=== PATIENT | male | born 1950 | race Caucasian/White ===

== ENCOUNTER → 2017-03-07 | Outpatient (CLI) | payer OTHER ==
--- NOTE | 2017-03-07 10:48 | US ---
EXAMINATION TYPE: US venous doppler duplex LE BI DATE OF EXAM: 03/07/2017 9:29 AM COMPARISON: Bilateral lower extremity venous ultrasound August 09, 2010 CLINICAL HISTORY: R22.42 Localized swelling lower limb. [facility] for non-h ealing left wound. Pt is also seen at [facility]. In today for venous insufficiency and arter ial doppler BLE. SIDE PERFORMED: bilateral TECHNIQUE: The lower extremity deep venous system is examined utilizing real time linear array sonog varun with graded compression, doppler sonography and color-flow sonography. VESSELS IMAGED: External Iliac Vein (EIV) Common Femoral Vein Deep Femoral Vein Greater Saphenous Vein * Femoral Vein Popliteal Vein Small Saphenous Vein * Proximal Calf Veins (* superficial vessels) Right Leg: assess for insufficiency as well, normal scan, no DVT or reflux noted on the right Left Leg: during color imaging, acute thrombus is seen at the mid/dst left pop vns. These vessels a re non-compressible. The arterial doppler was deferred due to left acute dvt. Results called to Dr Gibbs office (per [facility]) and pt directed back to the office for care. On current exam the left lower extremity there is diminished color flow with incomplete compressibili ty beginning in the mid left popliteal vein extending through the distal vein with heterogeneous hypo echoic material in lumen. IMPRESSION: Acute DVT left lower extremity in the mid to distal left popliteal vein is present. Results communicated to ordering physician by electrophysiology technologist shortly after exam was complete [email or web address]
== END | disposition home or self-care (01) ==
LOC: RADUSWWP 08:55
PROVIDERS: ATTEND Surgery
DX: I82.432 Acute embolism and thrombosis of left popliteal vein (principal); R22.42 Localized swelling, mass and lump, left lower limb
CPT/HCPCS: 93970

== ENCOUNTER 2017-03-20 20:38 | Inpatient (IN) | payer OTHER, MEDICARE ==
[2017-03-20] MEDS ORDERED: MORPHINE SULFATE 4 MG/ML SYRINGE IV STA (21:53)
[2017-03-20] MEDS ORDERED: CIPROFLOXACIN HCL 250 MG TAB PO STA (21:55)
[2017-03-20 22:39] LABS: Basophils % (A) 0 %; CH 35.1; CHCM 34.5; Eosinophils # (A) 0.1 k/uL (0-0.7); Eosinophils % (A) 1 %; HCT 37.7 % (39.0-53.0); HDW 2.56; HGB 12.9 gm/dL (13.0-17.5); Luc # (Auto) 0.28; Luc % (Auto) 2; Lymphocytes # (A) 3.8 k/uL (1.0-4.8); Lymphocytes % (A) 27 %; MCH 34.8 pg (25.0-35.0); MCHC 34.1 g/dL (31.0-37.0); MCV 102.1 fL (80.0-100.0); Macrocytosis Slight; Mean Platelet Volume 7.1; Monocytes # (A) 0.9 k/uL (0-1.0); Monocytes % (A) 7 %; Neutrophils # (A) 8.7 k/uL (1.3-7.7); Neutrophils % (A) 63 %; RBC 3.69 m/uL (4.30-5.90); WBC 13.8 k/uL (3.8-10.6); WBC (Perox) 13.75
--- NOTE | 2017-03-20 22:40 | ED ---
Skin/Abscess/FB HPI - General Chief complaint: Skin/Abscess/Foreign Body Stated complaint: Infection Time Seen by Provider: 03/20/17 21:24 Source: patient Mode of arrival: ambulatory Limitations: no limitations - History of Present Illness Initial comments: Mike has a chronic left leg infection/also/abscess for the last 9 months he was seen recently at the [facility] he had a biopsy done and he was diagnosed with the pyoderma gangrenosum he was started on a Cipro and some mom antibacterial drops but now is concerned that his pain is quite significant, there is some worsening of the pain is November he was diagnosed with a DVT in the left leg, he is on his overall toe and he has been taken his alto pretty religiously he denies any fever or any chills and no trauma to the leg either him a review of system is unremarkable otherwise - Related Data Home Medications Medication Instructions Recorded Confirmed Lisinopril [Zestril] 10 mg PO DAILY 02/04/17 03/20/17 Magnesium Oxide [Mag-Ox] 250 mg PO DAILY 02/04/17 03/20/17 Metoprolol Succinate (ER) [Toprol 25 mg PO BID 02/04/17 03/20/17 XL] Niacin 100 mg PO DAILY 02/04/17 03/20/17 [place]-3 Fatty Acids [[place]-3] 1,000 mg PO DAILY 02/04/17 03/20/17 Simvastatin [Zocor] 40 mg PO HS 02/04/17 03/20/17 cycloSPORINE [Restasis] 2 drop BOTH EYES BID 02/04/17 03/20/17 Cetirizine HCl [Zyrtec] 10 mg PO DAILY 02/18/17 03/20/17 Chlorhexidine Gluconate [Hibiclens] 1 applic TOPICAL DAILY 02/18/17 03/20/17 Dapsone 100 mg PO DAILY 02/18/17 03/20/17 Clobetasol Propionate [Temovate] 1 applic TOPICAL DAILY 03/11/17 03/20/17 Rivaroxaban [Xarelto] 15 mg PO BID 03/11/17 03/20/17 Tacrolimus 1 applic TOPICAL DAILY 03/11/17 03/20/17 Albuterol Sulfate [Proventil Hfa] 2 puff INHALATION RT-Q4H PRN 03/18/17 03/20/17 HYDROcodone/APAP 7.5-325MG [[place] 1 tab PO Q4H PRN 03/18/17 03/20/17 7.5-325] Pantoprazole Sodium [Protonix] 40 mg PO DAILY 03/18/17 03/20/17 Adalimumab [Humira Pen] 40 mg SQ [id number] 03/20/17 03/20/17 Aspirin EC [Ecotrin Low Dose] 81 mg PO DAILY 03/20/17 03/20/17 Ciprofloxacin HCl [Cipro] 500 mg PO Q12HR 03/20/17 03/20/17 Folic Acid 1 mg PO DAILY 03/20/17 03/20/17 Gentamicin 0.3% Ophth Soln 2 drops TOPICAL DAILY 03/20/17 03/20/17 [Garamycin 0.3% Ophth Soln] Methotrexate Sodium [Methotrexate] 10 mg SQ SA 03/20/17 03/20/17 Allergies Allergy/AdvReac Type Severity Reaction Status Date / Time bupropion [From Wellbutrin] Allergy Rash/Hives/ Verified 03/20/17 21:15 Swelling Review of Systems ROS Statement: Those systems with pertinent positive or pertinent negative responses have been documented in the HPI. ROS Other: All systems not noted in ROS Statement are negative. Past Medical History Past Medical History: Coronary Artery Disease (CAD), Eye Disorder, Hyperlipidemia, Hypertension, Myocardial Infarction ([place]), Skin Disorder Additional Past Medical History / Comment(s): Crohn's; Episcleritis L Eye; Pyoderma L Leg Last Myocardial Infarction Date:: 2011 History of Any Multi-Drug Resistant Organisms: None Reported Past Surgical History: Heart Catheterization With Stent, Orthopedic Surgery Additional Past Surgical History / Comment(s): R Knee, colonoscopy and EGD Past Anesthesia/Blood Transfusion Reactions: No Reported Reaction Date of Last Stent Placement:: 2011 Smoking Status: Former smoker Past Alcohol Use History: Occasional Past Drug Use History: None Reported - Past Family History Mother Family Medical History: Hypertension General Exam - General Exam Comments Initial Comments: General: The patient is awake and alert, mild distress because of the pain in the left leg Skin: Skin is warm and dry and no rashes or lesions are noted. He has a chronic, wound/ulcer, noticed some pus in there is a regular surface part of the wound is edges are elevated noticed some discoloration tissue doesn't look quite quite healthy and has a slight odor as well Eye: Pupils are equal, round and reactive to light, extra-ocular movements are intact; there is normal conjunctiva bilaterally. Ears, nose, mouth and throat: There are moist mucous membranes and no oral lesions. Neck: The neck is supple, there is no tenderness or JVD. Cardiovascular: There is a regular rate and rhythm. No murmur, rub or gallop is appreciated. Respiratory: To auscultation bilateral, no wheezing no rhonchi no distress respiratory kee noticed Gastrointestinal: Soft, non-distended, non-tender abdomen without masses or organomegaly noted. There is no rebound or guarding present. Bowel sounds are unremarkable. Back: There is no tenderness to palpation in the midline. There is no obvious deformity. Musculoskeletal: Normal ROM, no tenderness, There is no pedal edema. There is no calf tenderness or swelling. No cords were appreciated. Neurological: CN II-XII intact, Cranial nerves III through XII are intact. There are no obvious motor or sensory deficits. Coordination appears grossly intact. Speech is normal. Psychiatric: Cooperative, stressed out. Limitations: no limitations Course Vital Signs 03/20/17 20:48 Temperature 98.1 F Pulse Rate 82 Respiratory 18 Rate Blood Pressure 138/84 O2 Sat by Pulse 95 Oximetry - Reevaluation(s) Reevaluation #1: 03/20/17 22:54 He be admitted under Dr. Ortiz service, Dr. Ibrahim is his own doctor and he'll be consulted I Dr. Reaves is as ID doctor Medical Decision Making - Lab Data Result diagrams: 03/20/17 22:14 Lab Results 03/20/17 Range/Units 22:14 WBC 13.8 H (3.8-10.6) k/uL RBC 3.69 L (4.30-5.90) m/uL Hgb 12.9 L (13.0-17.5) gm/dL Hct 37.7 L (39.0-53.0) % MCV 102.1 H (80.0-100.0) fL MCH 34.8 (25.0-35.0) pg MCHC 34.1 (31.0-37.0) g/dL RDW 14.0 (11.5-15.5) % Plt Count 221 (150-450) k/uL Neutrophils % 63 % Lymphocytes % 27 % Monocytes % 7 % Eosinophils % 1 % Basophils % 0 % Neutrophils # 8.7 H (1.3-7.7) k/uL Lymphocytes # 3.8 (1.0-4.8) k/uL Monocytes # 0.9 (0-1.0) k/uL Eosinophils # 0.1 (0-0.7) k/uL Basophils # 0.0 (0-0.2) k/uL Macrocytosis Slight Disposition Clinical Impression: Leg wound, left Disposition: ADMITTED IP TO THIS HOSP Condition: Good
[2017-03-20 22:50] LABS: ALT 43 U/L (21-72); AST 34 U/L (17-59); Alkaline Phosphatase 51 U/L (38-126); Anion Gap 7 mmol/L; Blood Urea Nitrogen 38 mg/dL (9-20); Calcium 9.2 mg/dL (8.4-10.2); Carbon Dioxide 27 mmol/L (22-30); Chloride 105 mmol/L (98-107); Glucose 110 mg/dL (74-99); Non-African American GFR(MDRD) 55 (>60 ml/min/1.73 sqM); Potassium 4.3 mmol/L (3.5-5.1); Sodium 139 mmol/L (137-145); Total Bilirubin 0.6 mg/dL (0.2-1.3)
[2017-03-20] MEDS ORDERED: SODIUM CHLORIDE 0.9% 1,000 ML IV ONE (22:55)
[2017-03-20] MEDS ORDERED: ALBUTEROL NEBULIZED 2.5 MG/3 ML INHALATION PRN (22:59)
[2017-03-20] MEDS ORDERED: VANCOMYCIN 1,500 MG in SODIUM CHLORIDE 0.9% 250 ML IVPB STA (22:59)
[2017-03-21] MEDS: MORPHINE SULFATE 4 MG/ML SYRINGE IVP PRN ×6 (00:32→21:33)
[2017-03-21] MEDS: HYDROcodone/APAP 7.5-325MG 1 EACH TAB PO PRN ×3 (06:34→19:42)
--- NOTE | 2017-03-21 07:22 | XR ---
EXAMINATION TYPE: XR tibia fibula LT DATE OF EXAM: 03/20/2017 10:27 PM CLINICAL HISTORY: Nonhealing wound TECHNIQUE: AP and lateral images of the left tibia and fibula are obtained. COMPARISON: None. FINDINGS: There is no acute fracture/dislocation evident. The joint spaces appear within normal herrera its. Soft tissue wound is noted. No evidence for osteomyelitis. IMPRESSION: There is no acute fracture or dislocation seen. ICD 10 NO FRACTURE, INITIAL EVALUATION
[2017-03-21] MEDS: RIVAROXABAN 15 MG TAB PO SCH ×2 (08:26→21:27)
[2017-03-21] MEDS: FOLIC ACID 1 MG TAB PO SCH (08:26)
[2017-03-21] MEDS: ASPIRIN 81 MG CHEW PO SCH (08:26)
[2017-03-21] MEDS: PANTOPRAZOLE 40 MG TABLET PO SCH (08:26)
[2017-03-21] MEDS: DAPSONE 25 MG TAB PO SCH (08:26)
[2017-03-21] MEDS: CIPROFLOXACIN HCL 500 MG TAB PO SCH ×2 (08:26→21:26)
[2017-03-21] MEDS: METOPROLOL TARTRATE 25 MG TAB PO SCH ×2 (08:26→21:26)
[2017-03-21] MEDS: LORATADINE 10 MG TAB PO SCH (08:27)
[2017-03-21] MEDS: LISINOPRIL 10 MG TAB PO SCH (08:27)
[2017-03-21] MEDS: MAGNESIUM OXIDE 400 MG TAB PO SCH (08:27)
[2017-03-21] MEDS: CLOBETASOL PROP 0.05% CR 15GM TOPICAL SCH (08:28)
[2017-03-21] MEDS: cycloSPORINE 0.05% OPHTH 0.4 ML DROPERETTE BOTH EYES SCH ×2 (08:55→23:02)
[2017-03-21] MEDS ORDERED: NON-FORMULARY DRUG (Omega-3 Fatty Acids [Omega-3] 1,000 MG) PO SCH (09:00)
[2017-03-21] MEDS ORDERED: NIACIN 100 MG PO SCH (09:00)
[2017-03-21] MEDS ORDERED: CHLORHEXIDINE GLUCONATE TOPICAL SCH (09:00)
[2017-03-21] MEDS ORDERED: TACROLIMUS TOPICAL SCH (09:00)
--- NOTE | 2017-03-21 12:07 | P.HPIM ---
History of Present Illness H&P Date: 03/21/17 Chief Complaint: Uncontrolled pain of the left lower extremity This is a 67-year-old gentleman with past medical history significant for underlying Crohn's disease with chronic pyoderma gangrenosum involving the left lower extremity at the mid chin level. Patient is been following at [facility] and was recently started on antibiotic with ciprofloxacin and other immunosuppressant. Patient said that the pain in the left lower extremity is being getting worse within the past few days. He has been taking [place] every 6 hours. Secondary to his pain he was advised to take 2 tablets at the time that his pain remains uncontrolled. Patient said that there was no drainage noted from the ulcer on exam today he was noted to be bigger from what it was last week. There is a lot of necrotic tissue as well. Patient recently was diagnosed with an acute DVT involving the left lower extremity and is currently on Rivaroxaban for anticoagulation. There was no documented fevers or chills. He was evaluated in the emergency room and x-ray showed no evidence of underlying osteomyelitis per report. Patient is currently admitted to the hospital awaiting general surgery evaluation as well as infectious disease. Controlled with IV morphine. Review of Systems Review of system: 14 points review of systems were obtained and were negative except to what were mentioned in the HPI. Past Medical History Past Medical History: Coronary Artery Disease (CAD), Eye Disorder, Hyperlipidemia, Hypertension, Myocardial Infarction ([place]), Skin Disorder Additional Past Medical History / Comment(s): Crohn's; Episcleritis L Eye; Pyoderma gangrenosum L Leg Last Myocardial Infarction Date:: 2011 History of Any Multi-Drug Resistant Organisms: None Reported Past Surgical History: Heart Catheterization With Stent, Orthopedic Surgery Additional Past Surgical History / Comment(s): R Knee, colonoscopy and EGD Past Anesthesia/Blood Transfusion Reactions: No Reported Reaction Date of Last Stent Placement:: 2011 Past Psychological History: No Psychological Hx Reported Smoking Status: Former smoker Past Alcohol Use History: Occasional Past Drug Use History: None Reported - Past Family History Mother Family Medical History: Hypertension Brother(s) History Unknown: Yes Medications and Allergies Home Medications Medication Instructions Recorded Confirmed Type Lisinopril [Zestril] 10 mg PO DAILY 02/04/17 03/20/17 History Magnesium Oxide [Mag-Ox] 250 mg PO DAILY 02/04/17 03/20/17 History Metoprolol Succinate (ER) [Toprol 25 mg PO BID 02/04/17 03/20/17 History XL] Niacin 100 mg PO DAILY 02/04/17 03/20/17 History [place]-3 Fatty Acids [Supply-3] 1,000 mg PO DAILY 02/04/17 03/20/17 History Simvastatin [Zocor] 40 mg PO HS 02/04/17 03/20/17 History cycloSPORINE [Restasis] 2 drop BOTH EYES BID 02/04/17 03/20/17 History Cetirizine HCl [Zyrtec] 10 mg PO DAILY 02/18/17 03/20/17 History Chlorhexidine Gluconate [Hibiclens] 1 applic TOPICAL DAILY 02/18/17 03/20/17 History Dapsone 100 mg PO DAILY 02/18/17 03/20/17 History Clobetasol Propionate [Temovate] 1 applic TOPICAL DAILY 03/11/17 03/20/17 History Rivaroxaban [Xarelto] 15 mg PO BID 03/11/17 03/20/17 History Tacrolimus 1 applic TOPICAL DAILY 03/11/17 03/20/17 History Albuterol Sulfate [Proventil Hfa] 2 puff INHALATION RT-Q4H PRN 03/18/17 History HYDROcodone/APAP 7.5-325MG [[place] 1 tab PO Q4H PRN 03/18/17 03/20/17 History 7.5-325] Pantoprazole Sodium [Protonix] 40 mg PO DAILY 03/18/17 03/20/17 History Adalimumab [Humira Pen] 40 mg SQ [id number] 03/20/17 03/20/17 History Aspirin EC [Ecotrin Low Dose] 81 mg PO DAILY 03/20/17 03/20/17 History Ciprofloxacin HCl [Cipro] 500 mg PO Q12HR 03/20/17 03/20/17 History Folic Acid 1 mg PO DAILY 03/20/17 03/20/17 History Gentamicin 0.3% Ophth Soln 2 drops TOPICAL DAILY 03/20/17 03/20/17 History [Garamycin 0.3% Ophth Soln] Methotrexate Sodium [Methotrexate] 10 mg SQ SA 03/20/17 03/20/17 History Allergies Allergy/AdvReac Type Severity Reaction Status Date / Time bupropion [From Wellbutrin] Allergy Rash/Hives/ Verified 03/20/17 21:15 Swelling Physical Exam Vitals: Vital Signs Temp Pulse Pulse Resp BP BP Pulse Ox 03/21/17 07:00 98.0 F 59 L 16 112/72 94 L 03/20/17 23:45 97.3 F L 62 20 118/78 95 03/20/17 23:18 98.4 F 60 18 112/59 95 Intake and Output 03/20/17 03/21/17 03/21/17 22:59 06:59 14:59 Intake Total 100 Balance 100 Intake: Oral 100 Other: Voiding Method Toilet # Voids 1 Weight 100.244 kg General: The patient is awake and alert, in no distress, and does not appear acutely ill. Eye: extra-ocular movements are intact; there is normal conjunctiva bilaterally. . Neck: The neck is supple, there is no tenderness or JVD. Cardiovascular: Normal S1-S2, no S3-S4, no murmurs. Respiratory: Lungs clear to auscultation bilaterally with no wheezes rhonchi or rales. Gastrointestinal: Abdomen is soft, nontender, nondistended, with no organomegaly. . Musculoskeletal: Normal ROM, no tenderness, There is no pedal edema. Neurological: There are no obvious motor or sensory deficits. Speech is normal. Skin: Skin is warm and dry. Please refer to the nursing staff documentation and pictures in the paper chart for description of the ulcer involving the left lower extremity at the mid conde level Results CBC & Chem 7: 03/20/17 22:14 03/20/17 22:14 Thrombosis Risk Factor Assmnt - Choose All That Apply Any of the Below Risk Factors Present?: Yes Each Factor Represents 1 point: Obesity (BMI >25) Other Risk Factors: Yes Each Risk Factor Represents 2 Points: Age 61-74 years Other congenital or acquired thrombophilia - If yes, enter type in comment: No Thrombosis Risk Factor Assessment Total Risk Factor Score: 3 Thrombosis Risk Factor Assessment Level: Moderate Risk Assessment and Plan Plan: 1. 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 Left lower extremity ulcer infection with necrotic tissue 3. Recent left lower extremity DVT on anticoagulation with Rivaroxaban 4. Underlying Crohn's disease with no evidence of exacerbation 5. Essential hypertension: Blood pressure well controlled 6. Mixed hyperlipidemia 7. Chronic pain secondary to left lower extremity chronic ulcer now not well controlled Today, I reviewed his medication list and labwork result. Continue broad spectrum antibiotic. Culture sent and pending. Appreciate business information consultant's recommendations. May require debridement of the wound by surgery. We will continue supportive care otherwise. Pain control. DVT prophylaxis with subcu heparin. Repeat lab work in the morning.
--- NOTE | 2017-03-21 14:11 | P.GSCN ---
<Irina Masters - Last Filed: 03/21/17 13:48> History of Present Illness Consult date: 03/21/17 Reason for Consult: Ulcer left lower extremity History of present illness: 67-year-old male being seen for a surgical eval at the request of the attending patient is known to Dr. Gómez follows the patient in the wound care center. Patient has a known history for underlying Crohn's disease with chronic pyodermal gangrenosum involving the left lower extremity. Patient has been followed by the [facility] in [place]. Stated that he had recently been started on antibiotic Cipro and other immunosuppressants. Patient states what concerned him and what brought him into the emergency room was the pain he was experiencing in the left lower extremity was getting worse over the last several days. Patient stated he was taking [place] every 6 hours and was not seeming to get the relief. Patient states he does follow at the [facility] wound center with dr gómez Patient stated that he did stop taking his Keflex on March 19 and started on Cipro. He stated that he was seen by the wound care center. Patient states he had not been running any fever had not been experiencing any chills. Currently the patient states he has been dressing the left lower extremity wound with silver opticel dressing. He states the drainage is about the same he also states the wound does not look significantly changed the redness around it has improved. He states that there is concern because of the increased change in the pain with the antibiotic that had been changed patient has a wound on the left lower conde measures 6 cm in length 500 with with red-pink granulation noted epithelialization of 20-50%. There is a dry necrotic slough at the base area noted. There is a healed scar tissue around it A slight odor noted with serosanguineous drainage noted currently has a dressing on opticel to the area Review of Systems Essentially unremarkable except as mentioned in the present illness Past Medical History Past Medical History: Coronary Artery Disease (CAD), Eye Disorder, Hyperlipidemia, Hypertension, Myocardial Infarction ([place]), Skin Disorder Additional Past Medical History / Comment(s): Crohn's; Episcleritis L Eye; Pyoderma gangrenosum L Leg Last Myocardial Infarction Date:: 2011 History of Any Multi-Drug Resistant Organisms: None Reported Past Surgical History: Heart Catheterization With Stent, Orthopedic Surgery Additional Past Surgical History / Comment(s): R Knee, colonoscopy and EGD Past Anesthesia/Blood Transfusion Reactions: No Reported Reaction Date of Last Stent Placement:: 2011 Past Psychological History: No Psychological Hx Reported Smoking Status: Former smoker Past Alcohol Use History: Occasional Past Drug Use History: None Reported - Past Family History Mother Family Medical History: Hypertension Brother(s) History Unknown: Yes Medications and Allergies Home Medications Medication Instructions Recorded Confirmed Type Lisinopril [Zestril] 10 mg PO DAILY 02/04/17 03/20/17 History Magnesium Oxide [Mag-Ox] 250 mg PO DAILY 02/04/17 03/20/17 History Metoprolol Succinate (ER) [Toprol 25 mg PO BID 02/04/17 03/20/17 History XL] Niacin 100 mg PO DAILY 02/04/17 03/20/17 History [place]-3 Fatty Acids [[place]-3] 1,000 mg PO DAILY 02/04/17 03/20/17 History Simvastatin [Zocor] 40 mg PO HS 02/04/17 03/20/17 History cycloSPORINE [Restasis] 2 drop BOTH EYES BID 02/04/17 03/20/17 History Cetirizine HCl [Zyrtec] 10 mg PO DAILY 02/18/17 03/20/17 History Chlorhexidine Gluconate [Hibiclens] 1 applic TOPICAL DAILY 02/18/17 03/20/17 History Dapsone 100 mg PO DAILY 02/18/17 03/20/17 History Clobetasol Propionate [Temovate] 1 applic TOPICAL DAILY 03/11/17 03/20/17 History Rivaroxaban [Xarelto] 15 mg PO BID 03/11/17 03/20/17 History Tacrolimus 1 applic TOPICAL DAILY 03/11/17 03/20/17 History Albuterol Sulfate [Proventil Hfa] 2 puff INHALATION RT-Q4H PRN 03/18/17 History HYDROcodone/APAP 7.5-325MG [[place] 1 tab PO Q4H PRN 03/18/17 03/20/17 History 7.5-325] Pantoprazole Sodium [Protonix] 40 mg PO DAILY 03/18/17 03/20/17 History Adalimumab [Humira Pen] 40 mg SQ [id number] 03/20/17 03/20/17 History Aspirin EC [Ecotrin Low Dose] 81 mg PO DAILY 03/20/17 03/20/17 History Ciprofloxacin HCl [Cipro] 500 mg PO Q12HR 03/20/17 03/20/17 History Folic Acid 1 mg PO DAILY 03/20/17 03/20/17 History Gentamicin 0.3% Ophth Soln 2 drops TOPICAL DAILY 03/20/17 03/20/17 History [Garamycin 0.3% Ophth Soln] Methotrexate Sodium [Methotrexate] 10 mg SQ SA 03/20/17 03/20/17 History Allergies Allergy/AdvReac Type Severity Reaction Status Date / Time bupropion [From Wellbutrin] Allergy Rash/Hives/ Verified 03/20/17 21:15 Swelling Surgical - Exam Vital Signs Temp Pulse Resp BP Pulse Ox 98.1 F 82 18 138/84 95 03/20/17 20:48 03/20/17 20:48 03/20/17 20:48 03/20/17 20:48 03/20/17 20:48 GENERAL APPEARANCE: A 67-year-old male patient is alert, oriented, in no acute distress. Continues to report that he has pain in the left lower conde of the ulcerative site VITAL SIGNS: Reviewed HEENT: Head is normocephalic and atraumatic. Pupils are equal and reactive. The nares are patent. Oropharynx is clear without lesions. NECK: Supple without lymphadenopathy. Traches midline. HEART: S1, S2. Regular rate and rhythm. No murmur noted denying chest pain LUNGS: No crackles or wheezes are heard. Adequate air movement bilaterally no shortness of breath no cough on room air ABDOMEN: Soft, nontender, nondistended with good bowel sounds. No peritoneal signs. No palpable organomegaly or masses. EXTREMITIES: The left lower extremity dressing removed noted wound measuring 6 cm in length 5 cm in width with serous drainage slight odor with the gel fiber with silver dressing in place surrounding tissue erythema noted the extremity warm to touch. Radial pedal pulses are 2/4 bilaterally. No pedal edema noted NEUROLOGICAL: No focal deficits. Strength and sensation are grossly intact. Results - Labs 03/20/17 22:14 03/20/17 22:14 Assessment and Plan Plan: Impression History of Crohn's disease no evidence of an exacerbation Present on admission known chronic left lower extremity open ulcer measuring 6 cm in length 5 cm in width with necrotic tissue noted Left lower extremity DVT on anticoagulation Hypertension Chronic pain secondary to left lower extremity ulcer not well controlled History of pyoderma gangrenosum Chronic pyoderma gangrenosum of the left lower extremity Plan At this time there is no surgical indication to do a debridement of this ulcer that is open involving the left lower extremity would continue with the current wound care per [facility]'s recommendations continue with the multivitamins and high protein diet as ordered Pain control Wound care as ordered Patient should continue to follow-up with [facility] with dr barillas for the Pyoderm gangrenosum dr vaughn did notify Dr. gómez who is familiar with this patient Thank you for this kind referral and opportunity to participate in the care depending on progress further recommendations will be made The above dictated assessment and findings were discussed with dr vaughn. Impression and the plan of care have been dictated as directed. Irina Masters nurse practitioner acting as a scribe for dr alfaro <Merry Solis - Last Filed: 03/24/17 12:51> Surgical - Exam Vital Signs Temp Pulse Resp BP Pulse Ox 98.1 F 82 18 138/84 95 03/20/17 20:48 03/20/17 20:48 03/20/17 20:48 03/20/17 20:48 03/20/17 20:48 Results - Labs 03/20/17 22:14 03/20/17 22:14
[2017-03-21 14:17] VITALS: BMI 30.8
[2017-03-21] MEDS: ATORVASTATIN 20 MG TAB PO SCH (21:26)
[2017-03-22] MEDS: MORPHINE SULFATE 4 MG/ML SYRINGE IVP PRN (06:59)
[2017-03-22] MEDS: RIVAROXABAN 15 MG TAB PO SCH (08:13)
[2017-03-22] MEDS: ASPIRIN 81 MG CHEW PO SCH (08:13)
[2017-03-22] MEDS: LORATADINE 10 MG TAB PO SCH (08:13)
[2017-03-22] MEDS: CIPROFLOXACIN HCL 500 MG TAB PO SCH (08:13)
[2017-03-22] MEDS: MAGNESIUM OXIDE 400 MG TAB PO SCH (08:14)
[2017-03-22] MEDS: PANTOPRAZOLE 40 MG TABLET PO SCH (08:14)
[2017-03-22] MEDS: DAPSONE 25 MG TAB PO SCH (08:14)
[2017-03-22] MEDS: FOLIC ACID 1 MG TAB PO SCH (08:14)
[2017-03-22] MEDS: METOPROLOL TARTRATE 25 MG TAB PO SCH (08:14)
[2017-03-22] MEDS: LISINOPRIL 10 MG TAB PO SCH (08:14)
[2017-03-22] MEDS: cycloSPORINE 0.05% OPHTH 0.4 ML DROPERETTE BOTH EYES SCH (08:15)
[2017-03-22] MEDS: CLOBETASOL PROP 0.05% CR 15GM TOPICAL SCH (08:15)
--- NOTE | 2017-03-22 08:20 | CONS ---
DATE OF CONSULTATION: 03/21/2017 REASON FOR CONSULTATION: Left leg wound and a question of secondary cellulitis. HISTORY OF PRESENT ILLNESS: The patient is a 67-year-old male with past medical history significant for pyoderma gangrenosum to the lower extremity that was back in 2002 and 2003. Patient did have a history of underlying Crohn's disease. About a month and a half ago the patient started having small wound to the leg lower leg area. The patient has been evaluated at the [facility]. They recommend some local steroid cream and was advised wound care for follow-up. The patient was seen at the [facility] for consultation for possible HBO therapy. Subsequently, the patient went to the [facility] for a second opinion and possible biopsy. The patient did have biopsy of the same also done which did not reveal any evidence of pyoderma gangrenosum, but evidence of possible stasis dermatitis. The patient is currently being treated with local steroid cream, clobestasol cream, and Aquacel Silver dressing. The patient said that he was at the [facility] last week where apparently was noticed to have worsening of his wound and possibility of an infection. He did have cultures obtained, which were growing pseudomonas. He was started on oral Cipro. Last night the patient said that his pain got worse and more redness and swelling to the leg area for which he came to the ER for possible secondary cellulitis and antibiotic therapy. The patient did receive a dose of vancomycin by the ER physician and has been subsequently admitted to the hospital. Surgery was consulted in addition to myself for the antibiotic therapy. Patient has also seen Dr. Ibrahim at the [facility] and apparently was told that there was no need for any surgical debridement. The patient denies any high-grade fever, no chills. REVIEW OF SYSTEMS: CONSTITUTIONAL: Positive for weakness. No fever. EYES: No complaint. ENT: No complaint. RESPIRATORY: No complaint. CARDIOVASCULAR: No complaint. GENITOURINARY: No complaint. GASTROINTESTINAL: No complaint. MUSCULOSKELETAL: No complaint. INTEGUMENTARY: As per HPI. PSYCHOLOGIC: No complaint. ENDOCRINE: No complaint. NEUROLOGIC: No complaint. PAST MEDICAL HISTORY: Significant for coronary artery disease, hypertension, hyperlipidemia, myocardial infarction, pyoderma gangrenosum. PAST SURGICAL HISTORY: Debridement of the leg wound, biopsy, PTCA and stent placement, angioplasty, EGD, colonoscopy. SOCIAL HISTORY: Remote history of smoking. No drug use. FAMILY HISTORY: Mother with history of hypertension. ALLERGIES TO BUPROPION. Medications currently include the patient is on Humira, aspirin, Lipitor, cyclosporine, dapsone, folic acid, Zestril, Claritin, mag oxide, methotrexate, Lopressor, Protonix, Xarelto, Ultram. On examination, blood pressure is 126/74 with a pulse of 51, temperature 97.8. He is 94% on room air. General description is an elderly male, lying in bed in no distress. No tachypnea or accessory muscle of respiration use. HEENT examination shows slight pallor. There is no scleral icterus. Oral mucous membranes dry. NECK: Trachea central. There is no thyromegaly. LUNGS: Unlabored breathing. Clear to auscultation. No wheeze or crackle. HEART: S1, S2. Regular rate and rhythm. ABDOMEN: Soft. No tenderness. EXTREMITIES: No edema of feet. Examination of the left leg wound on the lower leg area with significant amount of slough tissue and some black eschar. Very minimal surrounding erythema. Did have foul smell at the time of dressing changes. NEUROLOGICAL: The patient is awake, alert, oriented x3. Mood and affect normal. LABS: Hemoglobin is 13.9, white count of 4.9 with a BUN of 38, creatinine 1.30. He did have cultures obtained which are currently pending. DIAGNOSTIC IMPRESSION AND PLAN: Patient with chronic nonhealing wound to the left leg area. The patient did have a previous history of pyoderma gangrenosum that was in 2002. Now this wound started a few months ago with recent significant worsening that has been biopsied at [facility], which is showing stasis dermatitis but no features of pyoderma gangrenosum. The patient seems to have been treated with local steroid cream and Aquacel silver, but the wound has significant amount of slough tissue at the base with a question of possible secondary cellulitis. Culture done at the [facility] did show Pseudomonas aeruginosa for which the patient treated with p.o. Cipro with worsening and failing possible oral antibiotic therapy. PLAN: 1. We will try to get the culture report from the [facility] as the sensitivity was not documented on the report that was shown to me by the patient. 2. Will start the patient on Fortaz 2 grams q.8 to cover for the Pseudomonas. 3. The patient will need more aggressive local wound care with significant amount of slough tissue and necrotic skin that does need to be surgically debrided in order for it to heal up; however, the patient is very reluctant to this idea and will not agree with the Santyl. He wants to continue with local wound care as advised by the [facility], which is currently clobestasol cream and Aquacel silver. That will be continued. 4. Will follow up on his clinical condition and cultures to further adjust his medication if needed. If the patient does not have any significant improvement over the weekend, will recommend transferring him to the [facility] for continuity of care. ONOFRE
[2017-03-22] MEDS ORDERED: METHOTREXATE SODIUM 2.5 MG TAB PO SCH (09:00)
--- NOTE | 2017-03-22 10:52 | P.PN ---
Subjective No events overnight Objective - Vital Signs Vital signs: Vital Signs Temp 97.5 F L 03/22/17 07:51 Pulse 91 03/22/17 07:51 Resp 20 03/22/17 07:51 BP 141/85 03/22/17 07:51 Pulse Ox 95 03/22/17 07:51 Intake & Output 03/21/17 03/22/17 03/22/17 18:59 06:59 18:59 Weight 100.244 kg Other: Voiding Method Toilet # Voids 2 0 1 - Exam General: The patient is awake and alert, in no distress Eye: there is normal conjunctiva bilaterally. Neck: The neck is supple, there is no JVD. Cardiovascular: Normal S1-S2, no S3-S4, no murmurs. Respiratory: Lungs clear to auscultation bilaterally Gastrointestinal: Abdomen is soft, nontender Musculoskeletal: There is no pedal edema. Neurological:. Speech is normal. Skin: Skin is warm and dry is referred to nursing staff documentation for left lower extremity ulcer description - Labs CBC & Chem 7: 03/20/17 22:14 03/20/17 22:14 Assessment and Plan Plan: 1. 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 Left lower extremity ulcer infection with necrotic tissue 3. Recent left lower extremity DVT on anticoagulation with Rivaroxaban 4. Underlying Crohn's disease with no evidence of exacerbation 5. Essential hypertension: Blood pressure well controlled 6. Mixed hyperlipidemia 7. Chronic pain secondary to left lower extremity chronic ulcer now not well controlled Today, I reviewed his medication list and labwork result. Continue broad spectrum antibiotic. Culture sent and pending. Appreciate presales consultant's recommendations. No plan for surgical debridement. We will continue supportive care otherwise. Pain control. DVT prophylaxis with subcu heparin. Repeat lab work in the morning. Switch IV morphine to extended release morphine 15 mg twice daily
[2017-03-22] MEDS: MORPHINE SULFATE ER 15 MG TABLET PO SCH (12:10)
[2017-03-22] MEDS: HYDROcodone/APAP 7.5-325MG 1 EACH TAB PO PRN (15:14)
[2017-03-22] MEDS ORDERED: CIPROFLOXACIN HCL 500 MG TAB ONE (21:00)
[2017-03-22] MEDS ORDERED: RIVAROXABAN 15 MG TAB ONE (21:00)
[2017-03-22] MEDS ORDERED: METOPROLOL TARTRATE 25 MG TAB ONE (21:00)
[2017-03-22] MEDS ORDERED: MORPHINE SULFATE ER 15 MG TABLET PO ONE (21:00)
[2017-03-22] MEDS ORDERED: ATORVASTATIN 20 MG TAB ONE (21:00)
[2017-03-22] MEDS ORDERED: cycloSPORINE 0.05% OPHTH 0.4 ML DROPERETTE ONE (21:00)
[2017-03-22] MEDS ORDERED: HYDROcodone/APAP 7.5-325MG 1 EACH TAB ONE (23:15)
[2017-03-23] MEDS: ATORVASTATIN 20 MG TAB PO SCH ×2 (07:36→20:41)
[2017-03-23] MEDS: cycloSPORINE 0.05% OPHTH 0.4 ML DROPERETTE BOTH EYES SCH ×3 (07:36→20:42)
[2017-03-23] MEDS: METOPROLOL TARTRATE 25 MG TAB PO SCH ×3 (07:36→20:42)
[2017-03-23] MEDS: CIPROFLOXACIN HCL 500 MG TAB PO SCH ×3 (07:36→20:41)
[2017-03-23] MEDS: RIVAROXABAN 15 MG TAB PO SCH ×3 (07:37→20:42)
[2017-03-23] MEDS: MORPHINE SULFATE ER 15 MG TABLET PO SCH ×3 (07:37→20:47)
--- NOTE | 2017-03-23 08:16 | PN ---
DATE OF SERVICE: 03/22/2017 Reason for follow-up is left lower extremity wound and cellulitis. INTERVAL HISTORY: The patient is afebrile. Pain to the left lower extremity wound is slightly improved. He did mention the surrounding redness has improved as well. No drainage. Denies any chest pain. No shortness of breath or cough. On examination, blood pressure is 141/85 with a pulse of 91, temperature 97.5. He is 95% on room air. General description is an elderly male, lying in bed in no distress. RESPIRATORY SYSTEM: Unlabored breathing. Clear to auscultation anteriorly. HEART: S1, S2. Regular rate and rhythm. ABDOMEN: Soft, no tenderness. Left leg wound with no significant surrounding erythema. The wound still has significant amount of slough tissue with slightly black eschar, though not element of foul smelling as yesterday. LABS: Wound culture showing gram-negative. Blood culture has been negative. DIAGNOSTIC IMPRESSION AND PLAN: Patient with left lower leg nonhealing wound in a patient with previous history of pyoderma gangrenosum. This time biopsy was positive for stasis dermatitis with a question of secondary cellulitis. Cultures at the [facility] was pseudomonas. Here is showing gram-negative, more likely same pathogen. He is currently covered with Fortaz and that will be continued. Continue supportive care.
[2017-03-23] MEDS: DAPSONE 25 MG TAB PO SCH (08:33)
[2017-03-23] MEDS: ASPIRIN 81 MG CHEW PO SCH (08:33)
[2017-03-23] MEDS: FOLIC ACID 1 MG TAB PO SCH (08:33)
[2017-03-23] MEDS: LISINOPRIL 10 MG TAB PO SCH (08:34)
[2017-03-23] MEDS: LORATADINE 10 MG TAB PO SCH (08:34)
[2017-03-23] MEDS: PANTOPRAZOLE 40 MG TABLET PO SCH (08:34)
[2017-03-23] MEDS: CLOBETASOL PROP 0.05% CR 15GM TOPICAL SCH (08:34)
[2017-03-23] MEDS: MAGNESIUM OXIDE 400 MG TAB PO SCH (08:34)
[2017-03-23] MEDS: HYDROcodone/APAP 7.5-325MG 1 EACH TAB PO PRN ×3 (10:38→20:34)
--- NOTE | 2017-03-23 14:16 | P.PN ---
Subjective Pain is well controlled today Objective - Vital Signs Vital signs: Vital Signs Temp 98.3 F 03/23/17 07:00 Pulse 58 L 03/23/17 07:00 Resp 18 03/23/17 07:00 BP 142/76 03/23/17 07:00 Pulse Ox 94 L 03/23/17 07:00 Intake & Output 03/22/17 03/23/17 03/23/17 18:59 06:59 18:59 Intake Total 100 800 400 Balance 100 800 400 Intake: Intake, IV Titration 100 800 Amount cefTAZidime 2 gm In 100 800 Sodium Chloride 0.9% 100 ml @ 100 mls/hr IVPB Q8HR [facility] Rx#:[id number] Oral 400 Other: # Voids 1 2 - Exam General: The patient is awake and alert, in no distress Eye: there is normal conjunctiva bilaterally. Neck: The neck is supple, there is no JVD. Cardiovascular: Normal S1-S2, no S3-S4, no murmurs. Respiratory: Lungs clear to auscultation bilaterally Gastrointestinal: Abdomen is soft, nontender Musculoskeletal: There is no pedal edema. Neurological:. Speech is normal. Skin: Skin is warm and dry is referred to nursing staff documentation for left lower extremity ulcer description - Labs CBC & Chem 7: 03/20/17 22:14 03/20/17 22:14 Assessment and Plan Plan: 1. 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 Left lower extremity ulcer infection with necrotic tissue 3. Recent left lower extremity DVT on anticoagulation with Rivaroxaban 4. Underlying Crohn's disease with no evidence of exacerbation 5. Essential hypertension: Blood pressure well controlled 6. Mixed hyperlipidemia 7. Chronic pain secondary to left lower extremity chronic ulcer now not well controlled Today, I reviewed his medication list and labwork result. Continue broad spectrum antibiotic. Culture sent and pending. Appreciate oncology consultant's recommendations. No plan for surgical debridement. We will continue supportive care otherwise. Pain control. DVT prophylaxis with subcu heparin. Repeat lab work in the morning. Awaiting cultures to finalize. Awaiting antibiotic recommendation by infectious disease for discharge.
[2017-03-24] MEDS: HYDROcodone/APAP 7.5-325MG 1 EACH TAB PO PRN ×3 (00:31→11:52)
[2017-03-24 07:34] VITALS: BP 123/69; PULSE 68; RESP 16; TEMP 97.2
[2017-03-24] MEDS: MORPHINE SULFATE ER 15 MG TABLET PO SCH (09:25)
[2017-03-24] MEDS: CIPROFLOXACIN HCL 500 MG TAB PO SCH (09:28)
[2017-03-24] MEDS: PANTOPRAZOLE 40 MG TABLET PO SCH (09:28)
[2017-03-24] MEDS: ASPIRIN 81 MG CHEW PO SCH (09:28)
[2017-03-24] MEDS: METOPROLOL TARTRATE 25 MG TAB PO SCH (09:28)
[2017-03-24] MEDS: LISINOPRIL 10 MG TAB PO SCH (09:29)
[2017-03-24] MEDS: DAPSONE 25 MG TAB PO SCH (09:29)
[2017-03-24] MEDS: cycloSPORINE 0.05% OPHTH 0.4 ML DROPERETTE BOTH EYES SCH (09:29)
[2017-03-24] MEDS: LORATADINE 10 MG TAB PO SCH (09:30)
[2017-03-24] MEDS: MAGNESIUM OXIDE 400 MG TAB PO SCH (09:30)
[2017-03-24] MEDS: FOLIC ACID 1 MG TAB PO SCH (09:30)
[2017-03-24] MEDS: RIVAROXABAN 15 MG TAB PO SCH (09:30)
[2017-03-24] MEDS: CLOBETASOL PROP 0.05% CR 15GM TOPICAL SCH (09:35)
--- NOTE | 2017-03-24 10:41 | PN ---
DATE OF SERVICE: 03/23/2017 Reason for followup is left leg wound infection with pseudomonas. INTERVAL HISTORY: The patient is afebrile. The patient denies any worsening pain to the left leg wound area. Patient denies having any chest pain, shortness of breath or cough. No abdominal pain or any diarrhea. On examination, blood pressure is 102/59 with a pulse of 57, temperature 98.1. He is 93% on room air. General description is an elderly male, lying in bed in no distress. RESPIRATORY SYSTEM: Unlabored breathing. Clear to auscultation anteriorly. HEART: S1, S2. Regular rate and rhythm. ABDOMEN: Soft. No tenderness. Left leg wound still has slough tissue with black eschar redness improved. No foul smelling drainage. LABS: No new labs have been obtained today. Wound culture with Pseudomonas aeruginosa that is sensitive pathogen. Blood culture negative. DIAGNOSTIC IMPRESSION AND PLAN: Patient with left leg wound with secondary cellulitis. Culture has been positive for Pseudomonas, which is a sensitive pathogen. Currently on Fortaz. Plan to finish therapy with p.o. Cipro 500 mg twice a day for another 10 days to 2 weeks. Local wound care is to continue per [facility] and the patient advised to follow up with the wound clinic early next week. Family present at bedside. Their questions were answered. ONOFRE
--- NOTE | 2017-03-24 10:59 | P.DS ---
Providers Date of admission: 03/20/17 22:55 Expected date of discharge: 03/24/17 Attending physician: Faustino Gibbs Primary care physician: Faustino Gibbs [facility] Course: 1. 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 Left lower extremity ulcer infection no need for surgical debridement and Gen. surgery. Culture growing Pseudomonas. Continue ciprofloxacin 3. Recent left lower extremity DVT on anticoagulation with Rivaroxaban 4. Underlying Crohn's disease with no evidence of exacerbation 5. Essential hypertension: Blood pressure well controlled 6. Mixed hyperlipidemia 7. Chronic pain secondary to left lower extremity chronic ulcer now not well controlled Patient Condition at Discharge: Good Plan - Discharge Summary New Discharge Prescriptions: Morphine Sulfate ER [Ms Contin] 15 mg PO Q12HR #60 tablet Discharge Medication List Lisinopril [Zestril] 10 mg PO DAILY 02/04/17 [History] Magnesium Oxide [Mag-Ox] 250 mg PO DAILY 02/04/17 [History] Metoprolol Succinate (ER) [Toprol XL] 25 mg PO BID 02/04/17 [History] Niacin 100 mg PO DAILY 02/04/17 [History] [place]-3 Fatty Acids [[place]-3] 1,000 mg PO DAILY 02/04/17 [History] Simvastatin [Zocor] 40 mg PO HS 02/04/17 [History] cycloSPORINE [Restasis] 2 drop BOTH EYES BID 02/04/17 [History] Cetirizine HCl [Zyrtec] 10 mg PO DAILY 02/18/17 [History] Chlorhexidine Gluconate [Hibiclens] 1 applic TOPICAL DAILY 02/18/17 [History] Dapsone 100 mg PO DAILY 02/18/17 [History] Clobetasol Propionate [Temovate] 1 applic TOPICAL DAILY 03/11/17 [History] Rivaroxaban [Xarelto] 15 mg PO BID 03/11/17 [History] Tacrolimus 1 applic TOPICAL DAILY 03/11/17 [History] Albuterol Sulfate [Proventil Hfa] 2 puff INHALATION RT-Q4H PRN 03/18/17 [History ] HYDROcodone/APAP 7.5-325MG [[place] 7.5-325] 1 tab PO Q4H PRN 03/18/17 [History] Pantoprazole Sodium [Protonix] 40 mg PO DAILY 03/18/17 [History] Adalimumab [Humira Pen] 40 mg SQ [id number] 03/20/17 [History] Aspirin EC [Ecotrin Low Dose] 81 mg PO DAILY 03/20/17 [History] Ciprofloxacin HCl [Cipro] 500 mg PO Q12HR 03/20/17 [History] Folic Acid 1 mg PO DAILY 03/20/17 [History] Gentamicin 0.3% Ophth Soln [Garamycin 0.3% Ophth Soln] 2 drops TOPICAL DAILY 09/26 [History] Methotrexate Sodium [Methotrexate] 10 mg SQ SA 03/20/17 [History] Morphine Sulfate ER [Ms Contin] 15 mg PO Q12HR #60 tablet 03/24/17 [Rx] Follow up Appointment(s)/Referral(s): Faustino Gibbs MD [Primary Care Provider] - 1 Week Rosa Maria Reaves MD [STAFF PHYSICIAN] - 1 Week Discharge Disposition: HOME SELF-CARE
--- NOTE | 2017-03-24 19:02 | PN ---
DATE OF SERVICE: 03/24/2017 Reason for follow-up: Left leg infected wound with pseudomonas. INTERVAL HISTORY: The patient is afebrile. He is feeling better, pain to the left leg wound is currently controlled. The patient denies significant chest pain. No shortness of breath or cough. No abdominal pian or any diarrhea. On examination, blood pressure is 123/69 with a pulse of 68, temperature 97.2, He is 94% on room air. General description is an elderly male up in the bed in no distress. RESPIRATORY SYSTEM: Unlabored breathing. Clear to auscultation anteriorly. HEART: S1, S2. Regular rate and rhythm. ABDOMEN: Soft. No tenderness. LABS: Wound culture with pseudomonas. DIAGNOSTIC IMPRESSION AND PLAN: The patient with left leg wound with secondary cellulitis. Cultures positive for Pseudomonas both here and at the [facility]. Patient did improve on Fortaz that will be switched to Cipro 500 mg twice a day for another 2 weeks with outpatient follow-up with his workforce management analyst at the [facility]. Local wound care to continue . ONOFRE
[2017-04-03] MEDS ORDERED: ADALIMUMAB 80 MG/1.6 ML KIT SQ SCH (09:00)
== END 2017-03-24 12:33 | disposition home or self-care (01) | DRG 593 ==
LOC: EC 20:38 → 4MS4W 22:55
PROVIDERS: ADMIT Internal Medicine; ATTEND Internal Medicine
DX: L97.829 Non-pressure chronic ulcer of other part of left lower leg with unspecified severity (principal); L03.116 Cellulitis of left lower limb; K50.90 Crohn's disease, unspecified, without complications; I10 Essential (primary) hypertension; L88 Pyoderma gangrenosum; E78.2 Mixed hyperlipidemia; B96.5 Pseudomonas (aeruginosa) (mallei) (pseudomallei) as the cause of diseases classified elsewhere; G89.29 Other chronic pain; I87.2 Venous insufficiency (chronic) (peripheral); I25.10 Atherosclerotic heart disease of native coronary artery without angina pectoris; R53.1 Weakness; E66.9 Obesity, unspecified; I25.2 Old myocardial infarction; Z79.899 Other long term (current) drug therapy; Z87.891 Personal history of nicotine dependence; Z95.5 Presence of coronary angioplasty implant and graft; Z82.49 Family history of ischemic heart disease and other diseases of the circulatory system; Z86.718 Personal history of other venous thrombosis and embolism; Z88.8 Allergy status to other drugs, medicaments and biological substances; Z86.69 Personal history of other diseases of the nervous system and sense organs; Z79.2 Long term (current) use of antibiotics; Z79.01 Long term (current) use of anticoagulants; Z79.82 Long term (current) use of aspirin; Z79.891 Long term (current) use of opiate analgesic; Z68.30 Body mass index [BMI] 30.0-30.9, adult; Z71.3 Dietary counseling and surveillance
CPT/HCPCS: 36415; 80053; 85025; 87040; 87070; 87077; 87186; 87205; 96374; 99285

== ENCOUNTER 2017-03-30 16:07 | Inpatient (IN) | payer OTHER ==
[2017-03-30] MEDS ORDERED: IV VANCOMYCIN PER PHARMACY 1 EACH MISC MISCELLANE PRN (17:05)
[2017-03-30] MEDS ORDERED: SODIUM CHLORIDE 0.9% 1,000 ML IV STA (17:05)
--- NOTE | 2017-03-30 17:11 | ED ---
Extremity Problem HPI - General Chief complaint: Extremity Problem,Nontraumatic Stated complaint: Infection/Wound on Left Leg Time Seen by Provider: 03/30/17 16:51 Source: patient, RN notes reviewed Mode of arrival: ambulatory Limitations: no limitations - History of Present Illness Initial comments: 67-year-old male presents to the emergency department with a chief complaint of sore to the left conde. 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 Patient states that he started to have an outbreak about 2 months ago he's been cared for by Dr. Singh at the outpatient clinic. Patient states that he be admitted due to infection the infection cleared her last today she's has increased redness around the area and tenderness which is typical of the infection. Patient states when this happens he typically is admitted for IV antibiotics. Patient denies any fever or chills. Patient denies any cough cold runny nose. Patient states he was concerned due to the start of the infection so he thought that he should be evaluated. Patient denies any recent fever, chills, shortness of breath, chest pain, back pain, abdominal pain, nausea vomiting, numbness or tingling, dysuria or hematuria, constipation or diarrhea, headaches or visual changes, or any other current symptoms. - Related Data Home Medications Medication Instructions Recorded Confirmed Lisinopril [Zestril] 10 mg PO DAILY 02/04/17 03/30/17 Metoprolol Succinate (ER) [Toprol 25 mg PO BID 02/04/17 03/30/17 XL] cycloSPORINE [Restasis] 2 drop BOTH EYES BID 02/04/17 03/30/17 Albuterol Sulfate [Proventil Hfa] 2 puff INHALATION RT-Q4H PRN 03/18/17 03/30/17 HYDROcodone/APAP 7.5-325MG [[place] 1 tab PO Q4H PRN 03/18/17 03/30/17 7.5-325] Ciprofloxacin HCl [Cipro] 500 mg PO Q12HR 03/20/17 03/30/17 Previous Rx's Medication Instructions Recorded Morphine Sulfate ER [Ms Contin] 15 mg PO Q12HR #60 tablet 03/24/17 Allergies Allergy/AdvReac Type Severity Reaction Status Date / Time bupropion [From Wellbutrin] Allergy Rash/Hives/ Verified 03/30/17 17:08 Swelling Review of Systems ROS Statement: Those systems with pertinent positive or pertinent negative responses have been documented in the HPI. ROS Other: All systems not noted in ROS Statement are negative. Past Medical History Past Medical History: No Reported History Additional Past Medical History / Comment(s): Crohn's; Episcleritis L Eye; Pyoderma gangrenosum L Leg Last Myocardial Infarction Date:: 2011 History of Any Multi-Drug Resistant Organisms: None Reported Past Surgical History: Heart Catheterization With Stent, Orthopedic Surgery Additional Past Surgical History / Comment(s): R Knee, colonoscopy and EGD Past Anesthesia/Blood Transfusion Reactions: No Reported Reaction Date of Last Stent Placement:: 2011 Past Psychological History: No Psychological Hx Reported Smoking Status: Former smoker Past Alcohol Use History: Occasional Past Drug Use History: None Reported - Past Family History Mother Family Medical History: Hypertension Brother(s) History Unknown: Yes General Exam Limitations: no limitations General appearance: alert, in no apparent distress ENT exam: Present: normal exam, mucous membranes moist Neck exam: Present: normal inspection. Absent: tenderness, meningismus, lymphadenopathy Respiratory exam: Present: normal lung sounds bilaterally. Absent: respiratory distress, wheezes, rales, rhonchi, stridor Cardiovascular Exam: Present: regular rate, normal rhythm, normal heart sounds. Absent: systolic murmur, diastolic murmur, rubs, gallop, clicks Extremities exam: Present: full ROM, normal capillary refill, pedal edema (left lower extremity). Absent: normal inspection (Patient appears to have a sore to the left anterior conde), tenderness, joint swelling, calf tenderness Course Vital Signs 03/30/17 16:41 Temperature 98.8 F Pulse Rate 85 Respiratory 18 Rate Blood Pressure 116/69 O2 Sat by Pulse 95 Oximetry Medical Decision Making - Medical Decision Making 67-year-old male presents emergency Department chief complaint of chronic wound to left extremity does appear to have some infection around the area with some erythema and tenderness to touch. This started the patient on vancomycin. At this time we will admit the patient. The patient is in agreement with the plan and all questions have been answered. The case was discussed with on-call physician. Patient . - Radiology Data Radiology results: report reviewed, image reviewed Disposition Clinical Impression: Pyoderma gangrenosum, Leg wound, left, Left leg cellulitis Disposition: ADMITTED IP TO THIS HOSP Condition: Stable Referrals: Faustino Gibbs MD [Primary Care Provider] - 1-2 days Time of Disposition: 18:05 Decision Date: 03/30/17 Decision Time: 18:05
[2017-03-30] MEDS ORDERED: VANCOMYCIN 2,500 MG in SODIUM CHLORIDE 0.9% 500 ML IVPB STA (17:18)
--- NOTE | 2017-03-30 17:45 | XR ---
EXAMINATION TYPE: XR tibia fibula LT DATE OF EXAM: 03/30/2017 5:38 PM COMPARISON: 03/20/2017 HISTORY: 67-year-old male with nonhealing wound left lower leg, pain TECHNIQUE: 2 views FINDINGS: The large along the medial aspect of the distal leg. No underlying periostitis or osteolysis. No acut e fracture. Ankle and knee articulations appear grossly intact. IMPRESSION: Large wound medial aspect of the distal leg. The underlying bone appears radiographically unremarkabl e.
[2017-03-30 18:03] LABS: Basophils # (A) 0.1 k/uL (0-0.2); Basophils % (A) 1 %; CH 34.2; CHCM 33.2; Eosinophils # (A) 0.2 k/uL (0-0.7); Eosinophils % (A) 2 %; HCT 37.5 % (39.0-53.0); HDW 2.52; HGB 12.4 gm/dL (13.0-17.5); Luc # (Auto) 0.21; Luc % (Auto) 3; Lymphocytes # (A) 1.6 k/uL (1.0-4.8); Lymphocytes % (A) 20 %; MCH 34.1 pg (25.0-35.0); MCV 103.3 fL (80.0-100.0); Macrocytosis Slight; Monocytes # (A) 0.7 k/uL (0-1.0); Monocytes % (A) 8 %; Neutrophils # (A) 5.2 k/uL (1.3-7.7); Neutrophils % (A) 66 %; RBC 3.63 m/uL (4.30-5.90); RDW 13.7 % (11.5-15.5); WBC 7.9 k/uL (3.8-10.6); WBC (Perox) 7.89
[2017-03-30] MEDS ORDERED: NALOXONE 0.4 MG/ML 1 ML VIAL IV PRN (18:05)
[2017-03-30] MEDS ORDERED: IBUPROFEN 400 MG TAB PO PRN (18:05)
[2017-03-30] MEDS ORDERED: ACETAMINOPHEN TAB 325 MG TAB PO PRN (18:05)
[2017-03-30] MEDS ORDERED: ALBUTEROL NEBULIZED 2.5 MG/3 ML INHALATION PRN (18:06)
[2017-03-30 18:20] LABS: ALT 53 U/L (21-72); AST 47 U/L (17-59); Alkaline Phosphatase 62 U/L (38-126); Anion Gap 10 mmol/L; Blood Urea Nitrogen 22 mg/dL (9-20); Calcium 9.1 mg/dL (8.4-10.2); Carbon Dioxide 21 mmol/L (22-30); Chloride 108 mmol/L (98-107); Glucose 104 mg/dL (74-99); Non-African American GFR(MDRD) 52 (>60 ml/min/1.73 sqM); Potassium 4.1 mmol/L (3.5-5.1); Sodium 139 mmol/L (137-145); Total Bilirubin 0.8 mg/dL (0.2-1.3)
[2017-03-30 19:47] VITALS: BMI 30.7
[2017-03-30] MEDS: cycloSPORINE 0.05% OPHTH 0.4 ML DROPERETTE BOTH EYES SCH (21:44)
[2017-03-30] MEDS: METOPROLOL SUCCINATE (ER) 25 MG TAB.ER.24H PO SCH (21:45)
[2017-03-30] MEDS: SODIUM CHLORIDE 0.9% 1,000 ML IV SCH (22:11)
[2017-03-30] MEDS: ASPIRIN 81 MG CHEW PO SCH (22:12)
[2017-03-30] MEDS: DOCUSATE 100 MG CAP PO SCH (22:12)
[2017-03-30] MEDS: MORPHINE SULFATE ER 15 MG TABLET PO SCH (22:12)
[2017-03-31] MEDS: HYDROcodone/APAP 7.5-325MG 1 EACH TAB PO PRN ×4 (00:05→23:37)
[2017-03-31] MEDS: DOCUSATE 100 MG CAP PO SCH ×2 (08:01→20:39)
[2017-03-31] MEDS: LISINOPRIL 10 MG TAB PO SCH (08:01)
[2017-03-31] MEDS: ASPIRIN 81 MG CHEW PO SCH (08:01)
[2017-03-31] MEDS: METOPROLOL SUCCINATE (ER) 25 MG TAB.ER.24H PO SCH ×2 (08:01→20:39)
[2017-03-31] MEDS: MORPHINE SULFATE ER 15 MG TABLET PO SCH ×2 (08:02→20:39)
[2017-03-31 08:29] LABS: ALT 48 U/L (21-72); AST 35 U/L (17-59); Alkaline Phosphatase 47 U/L (38-126); Anion Gap 8 mmol/L; Blood Urea Nitrogen 18 mg/dL (9-20); Calcium 8.1 mg/dL (8.4-10.2); Carbon Dioxide 23 mmol/L (22-30); Chloride 111 mmol/L (98-107); Glucose 87 mg/dL (74-99); Non-African American GFR(MDRD) 59 (>60 ml/min/1.73 sqM); Potassium 4.3 mmol/L (3.5-5.1); Sodium 142 mmol/L (137-145); Total Bilirubin 0.6 mg/dL (0.2-1.3); Total Protein 5.6 g/dL (6.3-8.2)
[2017-03-31 08:44] LABS: Basophils % (A) 1 %; CH 34.1; CHCM 32.1; Eosinophils # (A) 0.2 k/uL (0-0.7); Eosinophils % (A) 4 %; HCT 34.1 % (39.0-53.0); HDW 2.44; HGB 10.5 gm/dL (13.0-17.5); Luc % (Auto) 4; Lymphocytes # (A) 1.9 k/uL (1.0-4.8); Lymphocytes % (A) 40 %; MCHC 30.9 g/dL (31.0-37.0); MCV 106.8 fL (80.0-100.0); Macrocytosis Moderate; Mean Platelet Volume 6.9; Monocytes # (A) 0.5 k/uL (0-1.0); Monocytes % (A) 11 %; Neutrophils # (A) 1.9 k/uL (1.3-7.7); Neutrophils % (A) 40 %; RDW 13.8 % (11.5-15.5); WBC 4.7 k/uL (3.8-10.6); WBC (Perox) 4.81
[2017-03-31] MEDS ORDERED: VANCOMYCIN 1,750 MG in SODIUM CHLORIDE 0.9% 250 ML IVPB SCH (10:00)
[2017-03-31] MEDS: cycloSPORINE 0.05% OPHTH 0.4 ML DROPERETTE BOTH EYES SCH ×2 (10:25→20:39)
--- NOTE | 2017-03-31 11:14 | P.GSCN ---
History of Present Illness Consult date: 03/31/17 Reason for Consult: Surgical eval nonhealing ulcer left anterior leg History of present illness: A 67-year-old male being seen on consultation for surgical eval at the request of the attending in a patient who is known to Dr. gómez service followed in the wound care center for an ulcer left anterior leg. Patient reports that he return to the emergency room on the day of admission due to increased pain involving the left anterior leg with poor pain control patient has a chronic wound involving the left lower extremity. Patient stated he was concerned he was getting infection around the area seen noted some redness and some tenderness to the touch. Subsequent the patient was admitted to the services of the attending with a surgical request. In the emergency room patient did have x-rays involving the right tibia-fibula there showed no acute fracture a large wound in the medial aspect of the left lower extremity noted no underlying osteolysis The patient is being seen by Dr. Avila will notify Dr. Gómez he will resume wound care for this patient Additionally patient follows up at the [facility] in the outpatient setting for the nonhealing ulcerative wound left leg It was noted that the patient was seen in the [facility] wound center on March [address] Gómez did do a debridement of the ulcer of the left anterior leg. Patient states that after the debridement the pain was able to be controlled with the [place] that he takes at home he became concerned when the last several days he had increased pain at the site not able to obtain pain control Review of Systems Essentially unremarkable except as mentioned in the present illness Past Medical History Past Medical History: Hyperlipidemia Additional Past Medical History / Comment(s): Crohn's; Episcleritis L Eye; Pyoderma gangrenosum L Leg Last Myocardial Infarction Date:: 2011 History of Any Multi-Drug Resistant Organisms: None Reported Past Surgical History: Heart Catheterization With Stent, Orthopedic Surgery Additional Past Surgical History / Comment(s): R Knee, colonoscopy and EGD Past Anesthesia/Blood Transfusion Reactions: No Reported Reaction Date of Last Stent Placement:: 2011 Past Psychological History: No Psychological Hx Reported Smoking Status: Former smoker Past Alcohol Use History: Occasional Past Drug Use History: None Reported - Past Family History Mother Family Medical History: Hypertension Brother(s) History Unknown: Yes Medications and Allergies Home Medications Medication Instructions Recorded Confirmed Type Lisinopril [Zestril] 10 mg PO DAILY 02/04/17 03/30/17 History Metoprolol Succinate (ER) [Toprol 25 mg PO BID 02/04/17 03/30/17 History XL] cycloSPORINE [Restasis] 2 drop BOTH EYES BID 02/04/17 03/30/17 History Albuterol Sulfate [Proventil Hfa] 2 puff INHALATION RT-Q4H PRN 03/18/17 History HYDROcodone/APAP 7.5-325MG [[place] 1 tab PO Q4H PRN 03/18/17 03/30/17 History 7.5-325] Ciprofloxacin HCl [Cipro] 500 mg PO Q12HR 03/20/17 03/30/17 History Allergies Allergy/AdvReac Type Severity Reaction Status Date / Time bupropion [From Wellbutrin] Allergy Rash/Hives/ Verified 03/30/17 17:08 Swelling Surgical - Exam Vital Signs Temp Pulse Resp BP Pulse Ox 98.8 F 85 18 116/69 95 03/30/17 16:41 03/30/17 16:41 03/30/17 16:41 03/30/17 16:41 03/30/17 16:41 GENERAL APPEARANCE: 67-year-old male patient is alert, oriented, in no acute distress. Sitting up in bed continues to report having pain in the left anterior leg currently like dressing oversight VITAL SIGNS: Reviewed HEENT: Head is normocephalic and atraumatic. Pupils are equal and reactive. The nares are patent. Oropharynx is clear without lesions. NECK: Supple without lymphadenopathy. Traches midline. HEART: S1, S2. Regular rate and rhythm. No murmur noted denying chest pain LUNGS: No crackles or wheezes are heard. Adequate air movement on room air ABDOMEN: Soft, nontender, nondistended with good bowel sounds. No peritoneal signs. No palpable organomegaly or masses. Reports no nausea vomiting no frequent stooling no difficulty in urinating no change in bowel habits EXTREMITIES: Upper extremities unremarkable. The right lower extremity unremarkable. There is an ulcer to the left anterior leg necrotic tissue noted measures 5 x 6 by 0.2 cm no bleeding noted no odor noted tenderness to the site no heel breakdown Radial pedal pulses are 2/4 bilaterally. NEUROLOGICAL: No focal deficits. Strength and sensation are grossly intact. Results - Labs 03/31/17 07:36 03/31/17 07:36 Abnormal Lab Results - Last 24 Hours (Table) 03/30/17 03/30/17 03/31/17 Range/Units 17:48 17:48 07:36 RBC 3.63 L 3.20 L (4.30-5.90) m/uL Hgb 12.4 L 10.5 L (13.0-17.5) gm/dL Hct 37.5 L 34.1 L (39.0-53.0) % MCV 103.3 H 106.8 H (80.0-100.0) fL MCHC 30.9 L (31.0-37.0) g/dL Chloride 108 H (98-107) mmol/L Carbon Dioxide 21 L (22-30) mmol/L BUN 22 H (9-20) mg/dL Creatinine 1.37 H (0.66-1.25) mg/dL Glucose 104 H (74-99) mg/dL Calcium (8.4-10.2) mg/dL Total Protein (6.3-8.2) g/dL Albumin (3.5-5.0) g/dL 03/31/17 Range/Units 07:36 RBC (4.30-5.90) m/uL Hgb (13.0-17.5) gm/dL Hct (39.0-53.0) % MCV (80.0-100.0) fL MCHC (31.0-37.0) g/dL Chloride 111 H (98-107) mmol/L Carbon Dioxide (22-30) mmol/L BUN (9-20) mg/dL Creatinine (0.66-1.25) mg/dL Glucose (74-99) mg/dL Calcium 8.1 L (8.4-10.2) mg/dL Total Protein 5.6 L (6.3-8.2) g/dL Albumin 3.2 L (3.5-5.0) g/dL Diabetes panel 03/30/17 03/31/17 Range/Units 17:48 07:36 Sodium 139 142 (137-145) mmol/L Potassium 4.1 4.3 (3.5-5.1) mmol/L Chloride 108 H 111 H (98-107) mmol/L Carbon Dioxide 21 L 23 (22-30) mmol/L BUN 22 H 18 (9-20) mg/dL Creatinine 1.37 H 1.23 (0.66-1.25) mg/dL Glucose 104 H 87 (74-99) mg/dL Calcium 9.1 8.1 L (8.4-10.2) mg/dL AST 47 35 (17-59) U/L ALT 53 48 (21-72) U/L Alkaline Phosphatase 62 47 (38-126) U/L Total Protein 7.0 5.6 L (6.3-8.2) g/dL Albumin 4.2 3.2 L (3.5-5.0) g/dL Calcium panel 03/30/17 03/31/17 Range/Units 17:48 07:36 Calcium 9.1 8.1 L (8.4-10.2) mg/dL Albumin 4.2 3.2 L (3.5-5.0) g/dL Pituitary panel 03/30/17 03/31/17 Range/Units 17:48 07:36 Sodium 139 142 (137-145) mmol/L Potassium 4.1 4.3 (3.5-5.1) mmol/L Chloride 108 H 111 H (98-107) mmol/L Carbon Dioxide 21 L 23 (22-30) mmol/L BUN 22 H 18 (9-20) mg/dL Creatinine 1.37 H 1.23 (0.66-1.25) mg/dL Glucose 104 H 87 (74-99) mg/dL Calcium 9.1 8.1 L (8.4-10.2) mg/dL Adrenal panel 03/30/17 03/31/17 Range/Units 17:48 07:36 Sodium 139 142 (137-145) mmol/L Potassium 4.1 4.3 (3.5-5.1) mmol/L Chloride 108 H 111 H (98-107) mmol/L Carbon Dioxide 21 L 23 (22-30) mmol/L BUN 22 H 18 (9-20) mg/dL Creatinine 1.37 H 1.23 (0.66-1.25) mg/dL Glucose 104 H 87 (74-99) mg/dL Calcium 9.1 8.1 L (8.4-10.2) mg/dL Total Bilirubin 0.8 0.6 (0.2-1.3) mg/dL AST 47 35 (17-59) U/L ALT 53 48 (21-72) U/L Alkaline Phosphatase 62 47 (38-126) U/L Total Protein 7.0 5.6 L (6.3-8.2) g/dL Albumin 4.2 3.2 L (3.5-5.0) g/dL Assessment and Plan Plan: Impression A history of 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 Gómez will evaluate the wound with further recommendations Continue with the current wound care as ordered Agree with infectious disease consultation Dr. leonard to see pending Pain control Further recommendations pending after Dr. gómez evaluates patient Dr. Lambert did notify Dr. Gómez who is familiar with this patient who will resume care with further recommendations. Patient is followed in the wound care center at [facility] for the left anterior nonhealing ulcerative wound by Dr. Gómez The above dictated assessment and findings were discussed with dr lambert Impression and the plan of care have been dictated as directed. Irina Masters nurse practitioner acting as a scribe for dr rustam lambert.
[2017-03-31] MEDS: SODIUM CHLORIDE 0.9% 1,000 ML IV SCH ×2 (11:19→23:36)
--- NOTE | 2017-03-31 12:36 | P.HPIM ---
History of Present Illness H&P Date: 03/31/17 Chief Complaint: Left leg ulcer This is a 67-year-old gentleman with past medical history significant for underlying Crohn's disease with chronic pyoderma gangrenosum involving the left lower extremity at the mid chin level. Patient is been following at [facility] and was recently started on antibiotic with ciprofloxacin and other immunosuppressant. Patient said that the pain in the left lower extremity is being getting worse within the past few days as well as worsening redness. Patient said that there was no drainage noted from the ulcer. Patient recently was diagnosed with an acute DVT involving the left lower extremity and is currently on Rivaroxaban for anticoagulation. There was no documented fevers or chills. Patient is currently admitted to the hospital awaiting general surgery evaluation as well as infectious disease. Review of Systems Review of system: 14 points review of systems were obtained and were negative except to what were mentioned in the HPI. Past Medical History Past Medical History: Hyperlipidemia Additional Past Medical History / Comment(s): Crohn's; Episcleritis L Eye; Pyoderma gangrenosum L Leg Last Myocardial Infarction Date:: 2011 History of Any Multi-Drug Resistant Organisms: None Reported Past Surgical History: Heart Catheterization With Stent, Orthopedic Surgery Additional Past Surgical History / Comment(s): R Knee, colonoscopy and EGD Past Anesthesia/Blood Transfusion Reactions: No Reported Reaction Date of Last Stent Placement:: 2011 Past Psychological History: No Psychological Hx Reported Smoking Status: Former smoker Past Alcohol Use History: Occasional Past Drug Use History: None Reported - Past Family History Mother Family Medical History: Hypertension Brother(s) History Unknown: Yes Medications and Allergies Home Medications Medication Instructions Recorded Confirmed Type Lisinopril [Zestril] 10 mg PO DAILY 02/04/17 03/30/17 History Metoprolol Succinate (ER) [Toprol 25 mg PO BID 02/04/17 03/30/17 History XL] cycloSPORINE [Restasis] 2 drop BOTH EYES BID 02/04/17 03/30/17 History Albuterol Sulfate [Proventil Hfa] 2 puff INHALATION RT-Q4H PRN 03/18/17 History HYDROcodone/APAP 7.5-325MG [[place] 1 tab PO Q4H PRN 03/18/17 03/30/17 History 7.5-325] Ciprofloxacin HCl [Cipro] 500 mg PO Q12HR 03/20/17 03/30/17 History Allergies Allergy/AdvReac Type Severity Reaction Status Date / Time bupropion [From Wellbutrin] Allergy Rash/Hives/ Verified 03/30/17 17:08 Swelling Physical Exam Vitals: Vital Signs Temp Pulse Pulse Resp BP BP Pulse Ox 03/31/17 07:00 97.8 F 63 20 120/67 92 L 03/30/17 22:27 97.4 F L 68 18 114/67 92 L 03/30/17 19:01 73 16 104/56 93 L 03/30/17 16:41 98.8 F 85 18 116/69 95 Intake and Output 03/30/17 03/31/17 03/31/17 22:59 06:59 14:59 Intake Total 240 240 Balance 240 240 Intake: Oral 240 240 Other: Voiding Method Toilet # Voids 1 2 Weight 99.79 kg General: The patient is awake and alert, in no distress, and does not appear acutely ill. Eye: extra-ocular movements are intact; there is normal conjunctiva bilaterally. . Neck: The neck is supple, there is no tenderness or JVD. Cardiovascular: Normal S1-S2, no S3-S4, no murmurs. Respiratory: Lungs clear to auscultation bilaterally with no wheezes rhonchi or rales. Gastrointestinal: Abdomen is soft, nontender, nondistended, with no organomegaly. . Musculoskeletal: Normal ROM, no tenderness, There is no pedal edema. Neurological: There are no obvious motor or sensory deficits. Speech is normal. Skin: Skin is warm and dry. Please refer to the nursing staff documentation and pictures in the paper chart for description of the ulcer involving the left lower extremity at the mid conde level Results CBC & Chem 7: 03/31/17 07:36 03/31/17 07:36 Labs: Abnormal Lab Results - Last 24 Hours (Table) 03/30/17 03/30/17 03/31/17 Range/Units 17:48 17:48 07:36 RBC 3.63 L 3.20 L (4.30-5.90) m/uL Hgb 12.4 L 10.5 L (13.0-17.5) gm/dL Hct 37.5 L 34.1 L (39.0-53.0) % MCV 103.3 H 106.8 H (80.0-100.0) fL MCHC 30.9 L (31.0-37.0) g/dL Chloride 108 H (98-107) mmol/L Carbon Dioxide 21 L (22-30) mmol/L BUN 22 H (9-20) mg/dL Creatinine 1.37 H (0.66-1.25) mg/dL Glucose 104 H (74-99) mg/dL Calcium (8.4-10.2) mg/dL Total Protein (6.3-8.2) g/dL Albumin (3.5-5.0) g/dL 03/31/17 Range/Units 07:36 RBC (4.30-5.90) m/uL Hgb (13.0-17.5) gm/dL Hct (39.0-53.0) % MCV (80.0-100.0) fL MCHC (31.0-37.0) g/dL Chloride 111 H (98-107) mmol/L Carbon Dioxide (22-30) mmol/L BUN (9-20) mg/dL Creatinine (0.66-1.25) mg/dL Glucose (74-99) mg/dL Calcium 8.1 L (8.4-10.2) mg/dL Total Protein 5.6 L (6.3-8.2) g/dL Albumin 3.2 L (3.5-5.0) g/dL Thrombosis Risk Factor Assmnt - Choose All That Apply Any of the Below Risk Factors Present?: No Each Risk Factor Represents 2 Points: Age 61-74 years Thrombosis Risk Factor Assessment Total Risk Factor Score: 2 Thrombosis Risk Factor Assessment Level: Low Risk Assessment and Plan Plan: 1. 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 Left lower extremity ulcer infection with necrotic tissue 3. Recent left lower extremity DVT on anticoagulation with Rivaroxaban 4. Underlying Crohn's disease with no evidence of exacerbation 5. Essential hypertension: Blood pressure well controlled 6. Mixed hyperlipidemia 7. Chronic pain secondary to left lower extremity chronic ulcer now not well controlled Today, I reviewed his medication list and labwork result. Continue broad spectrum antibiotic. Appreciate recruiting consultant's recommendations. May require debridement of the wound by surgery. We will continue supportive care otherwise. Pain control. Repeat lab work in the morning.
[2017-03-31] MEDS: COLLAGENASE 250 UNIT/GM OINTMENT 30 GM TUBE TOPICAL SCH (12:49)
[2017-03-31] MEDS: RIVAROXABAN 10 MG TAB PO SCH (17:48)
[2017-03-31] MEDS: CIPROFLOXACIN HCL 500 MG TAB PO SCH (20:39)
--- NOTE | 2017-04-01 07:25 | CONS ---
DATE OF CONSULTATION: DATE OF SERVICE: 03/31/2017 REASON FOR CONSULTATION: Left lower extremity wound with significant cellulitis. HISTORY OF PRESENT ILLNESS: The patient is a 67-year-old male evaluated by Surgery with a past medical history significant for Crohn disease and also with a history of pyoderma gangrenosum of the left lower extremity. The patient recently did have an open wound to his left leg with subsequent worsening for which the patient has followed with the [facility]. He did have biopsy done at that facility which revealed evidence of stasis dermatitis. The patient did have evidence of secondary bacterial infection. Culture done here as well as at the [facility] was showing Pseudomonas aeruginosa. Patient was recently admitted and was treated with IV Fortaz. After 3 days, the patient did have significant improvement as far as pain, swelling and redness was concerned. Hence, the patient was discharged home on oral Cipro with instructions to follow up with the [facility]. Patient ended up not going there for followup and continued with oral antibiotic. He presented to the [facility] ER last night with more swelling and redness around the wound area. No significant drainage. The pain described to be throbbing. The patient denies any high-grade fever, rigors or chills. Denies having any chest pain, shortness of breath or cough. No abdominal pain. The patient subsequently has been evaluated by the ER physician. Has been diagnosed with acute cellulitis and wound infection. The patient did have x-rays of the leg with no bony changes. Has been admitted to the hospital and vancomycin was added. I was asked to see the patient for further recommendation regarding antibiotic therapy. REVIEW OF SYSTEMS: CONSTITUTIONAL: Positive for weakness. No high-grade fever. EYES: No complaint. ENT: No complaint. RESPIRATORY: No complaint. CARDIOVASCULAR: No complaint. GENITOURINARY: No complaint. GASTROINTESTINAL: No complaint. MUSCULOSKELETAL: As per HPI. INTEGUMENTARY: As per HPI. PSYCHOLOGIC: No complaint. ENDOCRINE: No complaint. NEUROLOGIC: No complaints. PAST MEDICAL HISTORY: Crohn disease, episcleritis, pyoderma gangrenosum and left leg wound infection with hyperlipidemia. PAST SURGICAL HISTORY: Heart catheterization with stent, right knee arthroplasty, colonoscopy, EGD, biopsy of left leg. SOCIAL HISTORY: Remote history of smoking. No drinking or drug use. FAMILY HISTORY: Mother had history of hypertension. Allergies to BUPROPION. Medications include the patient is currently on Tylenol, [place], Ventolin, aspirin, vancomycin, ciprofloxacin, Restasis, Colace, Zestril, Toprol XL, MS Contin, Narcan, Xarelto. On examination, blood pressure 128/68 with a pulse of 71, temperature 97.9. he is 93% on room air. General description is an elderly male lying in bed in no distress. No tachypnea or accessory muscle of respiration use. HEENT examination shows pallor. No scleral icterus. Oral mucous membrane dry. NECK: Trachea central. No thyromegaly. LUNGS: Unlabored breathing. Clear to auscultation anteriorly. No wheeze or crackle. HEART: S1, S2. Regular rate and rhythm. ABDOMEN: Soft, no tenderness. No rigidity. Left leg with wound, which has slightly increased from the last admission with a measurement of 7 x 6 cm. The wound base has less amount of slough tissue . No surrounding redness or drainage. NEUROLOGICAL: The patient is awake, alert, oriented x3. Mood and affect normal. LABS: BUN of 18 with a creatinine 1.23. Hemoglobin is 10.5, white count 4.7. Blood cultures currently pending. DIAGNOSTIC IMPRESSION AND PLAN: Patient with a left leg wound, nonhealing, for the last few months now. Biopsy done at the [facility] with stasis dermatitis, previous history of pyoderma gangrenosum. Culture done on last admission did show evidence of Pseudomonas aeruginosa. PLAN: 1. Vancomycin will be discontinued. The patient is started on Fortaz to cover the Pseudomonas that was grown on the last admission. 2. Local wound care with Santyl followed by moist dressing. 3. Will follow up on his clinical condition to further adjust the medication if needed. Thank you for this consultation. Will follow this patient along with you. ONOFRE
[2017-04-01] MEDS: MORPHINE SULFATE ER 15 MG TABLET PO SCH ×2 (07:32→20:43)
[2017-04-01] MEDS: DOCUSATE 100 MG CAP PO SCH ×2 (07:33→20:44)
[2017-04-01] MEDS: METOPROLOL SUCCINATE (ER) 25 MG TAB.ER.24H PO SCH ×2 (07:33→20:43)
[2017-04-01] MEDS: ASPIRIN 81 MG CHEW PO SCH (07:33)
[2017-04-01] MEDS: cycloSPORINE 0.05% OPHTH 0.4 ML DROPERETTE BOTH EYES SCH ×2 (07:33→20:44)
[2017-04-01] MEDS: LISINOPRIL 10 MG TAB PO SCH (07:33)
[2017-04-01] MEDS: CIPROFLOXACIN HCL 500 MG TAB PO SCH ×2 (07:33→20:44)
[2017-04-01] MEDS: COLLAGENASE 250 UNIT/GM OINTMENT 30 GM TUBE TOPICAL SCH (07:37)
[2017-04-01 07:41] LABS: Basophils % (A) 1 %; CH 34.2; CHCM 32.6; Eosinophils # (A) 0.2 k/uL (0-0.7); Eosinophils % (A) 4 %; HDW 2.56; Luc # (Auto) 0.23; Luc % (Auto) 4; Lymphocytes # (A) 1.9 k/uL (1.0-4.8); Lymphocytes % (A) 37 %; MCH 34.2 pg (25.0-35.0); MCHC 32.5 g/dL (31.0-37.0); MCV 105.3 fL (80.0-100.0); Macrocytosis Slight; Monocytes # (A) 0.6 k/uL (0-1.0); Monocytes % (A) 12 %; Neutrophils # (A) 2.2 k/uL (1.3-7.7); Neutrophils % (A) 42 %; RBC 3.23 m/uL (4.30-5.90); RDW 13.5 % (11.5-15.5); WBC 5.2 k/uL (3.8-10.6); WBC (Perox) 4.79
[2017-04-01 08:20] LABS: Anion Gap 7 mmol/L; Blood Urea Nitrogen 20 mg/dL (9-20); Calcium 8.2 mg/dL (8.4-10.2); Carbon Dioxide 23 mmol/L (22-30); Chloride 112 mmol/L (98-107); Glucose 84 mg/dL (74-99); Non-African American GFR(MDRD) 53 (>60 ml/min/1.73 sqM); Sodium 142 mmol/L (137-145)
[2017-04-01 08:31] LABS: Potassium 4.4 mmol/L (3.5-5.1)
--- NOTE | 2017-04-01 11:41 | P.PN ---
Subjective 67-year-old male being seen on rounds this morning is sitting up in bed. Patient was seen last evening by Dr. Gómez surgical service. Dr. Gómez will evaluate the wound with further recommendations has been participating in the wound care at [facility] with dr gómez Currently has a dressing to the left lower extremity which is dry The patient states that he did speak with the surgeon dr gómez yesterday who indicated possible surgical debridement of the ulcerative area in the left lower extremity Objective - Vital Signs Vital signs: Vital Signs Temp 98.2 F 04/01/17 07:00 Pulse 64 04/01/17 07:00 Resp 20 04/01/17 07:00 BP 139/68 04/01/17 07:00 Pulse Ox 95 04/01/17 07:00 Intake & Output 03/31/17 04/01/17 04/01/17 18:59 06:59 18:59 Intake Total 810 1780 Balance 810 1780 Weight 99.79 kg Intake: Intake, IV Titration 810 1060 Amount Sodium Chloride 0.9% 1, 560 960 000 ml @ 80 mls/hr IV . [id number] SAUD Rx#:[id number] Vancomycin 1,750 mg In 250 Sodium Chloride 0.9% 250 ml @ 125 mls/hr IVPB Q16H [facility] Rx#:[id number] cefTAZidime 2 gm In 100 Sodium Chloride 0.9% 100 ml @ 100 mls/hr IVPB Q8HR SAUD Rx#:[id number] Oral 720 Other: Voiding Method Toilet Toilet Toilet # Voids 1 - Exam Physical exam 67-year-old gentleman sitting up in bed pleasant cooperative oriented 3 Lungs essentially clear adequate air movement on room air Heart S1-S2 audible regular denying chest pain Abdomen soft nontender no frequent stooling no nausea vomiting Extremities upper extremities unremarkable the left lower extremity dressing dry no edema noted - Labs CBC & Chem 7: 04/01/17 07:18 04/01/17 07:18 Labs: Abnormal Lab Results - Last 24 Hours (Table) 04/01/17 04/01/17 Range/Units 07:18 07:18 RBC 3.23 L (4.30-5.90) m/uL Hgb 11.0 L (13.0-17.5) gm/dL Hct 34.0 L (39.0-53.0) % MCV 105.3 H (80.0-100.0) fL Plt Count 149 L (150-450) k/uL Chloride 112 H (98-107) mmol/L Creatinine 1.34 H (0.66-1.25) mg/dL Calcium 8.2 L (8.4-10.2) mg/dL Microbiology - Last 24 Hours (Table) 03/30/17 17:48 Blood Culture - Preliminary Blood No Growth after 24 hours Assessment and Plan Plan: Impression A history of 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 Gómez will evaluate the wound with further recommendations Continue with the current wound care as ordered Wound care per infectious disease currently on Santyl antibiotics per infectious disease Pain control DVT and GI prophylaxis The above dictated assessment and findings were discussed with dr gómez Impression and the plan of care have been dictated as directed. Irina Masters nurse practitioner acting as a scribe for dr gómez
--- NOTE | 2017-04-01 12:37 | P.PN ---
Subjective Patient is doing well today. No events overnight. Objective - Vital Signs Vital signs: Vital Signs Temp 98.2 F 04/01/17 07:00 Pulse 64 04/01/17 07:00 Resp 20 04/01/17 07:00 BP 139/68 04/01/17 07:00 Pulse Ox 95 04/01/17 07:00 Intake & Output 03/31/17 04/01/17 04/01/17 18:59 06:59 18:59 Intake Total 810 1780 Balance 810 1780 Weight 99.79 kg Intake: Intake, IV Titration 810 1060 Amount Sodium Chloride 0.9% 1, 560 960 000 ml @ 80 mls/hr IV . [id number] [facility] Rx#:[id number] Vancomycin 1,750 mg In 250 Sodium Chloride 0.9% 250 ml @ 125 mls/hr IVPB Q16H [facility] Rx#:[id number] cefTAZidime 2 gm In 100 Sodium Chloride 0.9% 100 ml @ 100 mls/hr IVPB Q8HR [facility] Rx#:[id number] Oral 720 Other: Voiding Method Toilet Toilet Toilet # Voids 1 - Exam General: The patient is awake and alert, in no distress Eye: there is normal conjunctiva bilaterally. Neck: The neck is supple, there is no JVD. Cardiovascular: Normal S1-S2, no S3-S4, no murmurs. Respiratory: Lungs clear to auscultation bilaterally Gastrointestinal: Abdomen is soft, nontender Musculoskeletal: There is no pedal edema. Neurological:. Speech is normal. Please refer to nursing staff documentation for left lower extremity also description - Labs CBC & Chem 7: 04/01/17 07:18 04/01/17 07:18 Labs: Abnormal Lab Results - Last 24 Hours (Table) 04/01/17 04/01/17 Range/Units 07:18 07:18 RBC 3.23 L (4.30-5.90) m/uL Hgb 11.0 L (13.0-17.5) gm/dL Hct 34.0 L (39.0-53.0) % MCV 105.3 H (80.0-100.0) fL Plt Count 149 L (150-450) k/uL Chloride 112 H (98-107) mmol/L Creatinine 1.34 H (0.66-1.25) mg/dL Calcium 8.2 L (8.4-10.2) mg/dL Microbiology - Last 24 Hours (Table) 03/30/17 17:48 Blood Culture - Preliminary Blood No Growth after 24 hours Assessment and Plan Plan: 1. 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 Left lower extremity ulcer infection with necrotic tissue 3. Recent left lower extremity DVT on anticoagulation with Rivaroxaban 4. Underlying Crohn's disease with no evidence of exacerbation 5. Essential hypertension: Blood pressure well controlled 6. Mixed hyperlipidemia 7. Chronic pain secondary to left lower extremity chronic ulcer now not well controlled Today, I reviewed his medication list and labwork result. Continue broad spectrum antibiotic. Appreciate fashion consultant's recommendations. May require debridement of the wound by surgery. We will continue supportive care otherwise. Pain control. Repeat lab work in the morning.
[2017-04-01] MEDS: SODIUM CHLORIDE 0.9% 1,000 ML IV SCH (13:24)
[2017-04-01] MEDS: RIVAROXABAN 10 MG TAB PO SCH (16:56)
--- NOTE | 2017-04-02 07:24 | PN ---
DATE OF SERVICE: 04/01/2017 Reason for followup is left foot wound and question of secondary cellulitis. INTERVAL HISTORY: The patient is afebrile. He is breathing comfortably. Patient's pain to the left lower leg wound has improved. There is no significant drainage from it. Patient denies having any significant chest pain, shortness of breath or cough. No abdominal pain or any diarrhea. On examination, blood pressure 116/65 with a pulse of 64, temperature 97.8. He is 95% on room air. General description is an elderly male lying in bed in no distress. RESPIRATORY SYSTEM: Unlabored breathing. Clear to auscultation anteriorly. HEART: S1, S2. Regular rate and rhythm. ABDOMEN: Soft, no tenderness. Left lower leg wound with slough tissue at base with no surrounding redness or any drainage or foul smell was noticed. LABS: Hemoglobin is 11, white count 5.2 with a BUN of 20, creatinine 1.34. Blood culture obtained; so far negative. DIAGNOSTIC IMPRESSION AND PLAN: Patient with left leg wound non-healing with a previous culture positive for Pseudomonas aeruginosa. Patient is currently covered with Fortaz and Cipro. 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 Continue supportive care. ONOFRE
[2017-04-02] MEDS: HYDROcodone/APAP 7.5-325MG 1 EACH TAB PO PRN ×5 (07:34→23:53)
[2017-04-02] MEDS: MORPHINE SULFATE ER 15 MG TABLET PO SCH ×2 (07:35→21:40)
[2017-04-02] MEDS: CIPROFLOXACIN HCL 500 MG TAB PO SCH ×2 (07:39→21:40)
[2017-04-02] MEDS: ASPIRIN 81 MG CHEW PO SCH (07:39)
[2017-04-02] MEDS: cycloSPORINE 0.05% OPHTH 0.4 ML DROPERETTE BOTH EYES SCH ×2 (07:39→21:40)
[2017-04-02] MEDS: DOCUSATE 100 MG CAP PO SCH ×2 (07:40→21:40)
[2017-04-02] MEDS: METOPROLOL SUCCINATE (ER) 25 MG TAB.ER.24H PO SCH ×2 (07:40→21:40)
[2017-04-02] MEDS: LISINOPRIL 10 MG TAB PO SCH (07:40)
[2017-04-02] MEDS: COLLAGENASE 250 UNIT/GM OINTMENT 30 GM TUBE TOPICAL SCH (07:41)
[2017-04-02] MEDS ORDERED: VANCOMYCIN TROUGH DUE 1 EACH MISC MISCELLANE ONE (09:00)
[2017-04-02 09:24] LABS: Anion Gap 6 mmol/L; Blood Urea Nitrogen 15 mg/dL (9-20); Calcium 8.8 mg/dL (8.4-10.2); Carbon Dioxide 23 mmol/L (22-30); Chloride 109 mmol/L (98-107); Glucose 86 mg/dL (74-99); Non-African American GFR(MDRD) >60 (>60 ml/min/1.73 sqM); Sodium 138 mmol/L (137-145)
[2017-04-02 09:54] LABS: Basophils % (A) 0 %; CH 34.2; CHCM 32.9; Eosinophils # (A) 0.2 k/uL (0-0.7); Eosinophils % (A) 4 %; HDW 2.39; HGB 10.4 gm/dL (13.0-17.5); Luc # (Auto) 0.17; Luc % (Auto) 4; Lymphocytes # (A) 0.9 k/uL (1.0-4.8); Lymphocytes % (A) 20 %; MCH 34.8 pg (25.0-35.0); MCHC 33.4 g/dL (31.0-37.0); MCV 104.3 fL (80.0-100.0); Macrocytosis Slight; Monocytes # (A) 0.6 k/uL (0-1.0); Monocytes % (A) 14 %; Neutrophils # (A) 2.7 k/uL (1.3-7.7); Neutrophils % (A) 58 %; RBC 2.98 m/uL (4.30-5.90); RDW 13.5 % (11.5-15.5); WBC 4.6 k/uL (3.8-10.6); WBC (Perox) 4.65
--- NOTE | 2017-04-02 12:08 | P.PN ---
Subjective Patient is doing well today. No events overnight. Objective - Vital Signs Vital signs: Vital Signs Temp 98.2 F 04/02/17 07:00 Pulse 62 04/02/17 08:00 Resp 16 04/02/17 08:00 BP 128/70 04/02/17 07:00 Pulse Ox 92 L 04/02/17 07:00 Intake & Output 04/01/17 04/02/17 04/02/17 18:59 06:59 18:59 Intake Total 660 2030 Balance 660 2030 Weight 99.79 kg Intake: Intake, IV Titration 660 260 Amount Sodium Chloride 0.9% 1, 560 160 000 ml @ 80 mls/hr IV . [id number] [facility] Rx#:[id number] cefTAZidime 2 gm In 100 100 Sodium Chloride 0.9% 100 ml @ 100 mls/hr IVPB Q8HR [facility] Rx#:[id number] Oral 1770 Other: Voiding Method Toilet Toilet Toilet # Voids 1 1 - Exam General: The patient is awake and alert, in no distress Eye: there is normal conjunctiva bilaterally. Neck: The neck is supple, there is no JVD. Cardiovascular: Normal S1-S2, no S3-S4, no murmurs. Respiratory: Lungs clear to auscultation bilaterally Gastrointestinal: Abdomen is soft, nontender Musculoskeletal: There is no pedal edema. Neurological:. Speech is normal. Please refer to nursing staff documentation for left lower extremity also description - Labs CBC & Chem 7: 04/02/17 07:52 04/02/17 07:52 Labs: Abnormal Lab Results - Last 24 Hours (Table) 04/02/17 04/02/17 Range/Units 07:52 07:52 RBC 2.98 L (4.30-5.90) m/uL Hgb 10.4 L (13.0-17.5) gm/dL Hct 31.0 L (39.0-53.0) % MCV 104.3 H (80.0-100.0) fL Plt Count 139 L (150-450) k/uL Lymphocytes # 0.9 L (1.0-4.8) k/uL Chloride 109 H (98-107) mmol/L Microbiology - Last 24 Hours (Table) 03/30/17 17:48 Blood Culture - Preliminary Blood No Growth after 48 hours Assessment and Plan Plan: 1. 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 Left lower extremity ulcer infection with necrotic tissue and history of pseudomonas 3. Recent left lower extremity DVT on anticoagulation with Rivaroxaban 4. Underlying Crohn's disease with no evidence of exacerbation 5. Essential hypertension: Blood pressure well controlled 6. Mixed hyperlipidemia 7. Chronic pain secondary to left lower extremity chronic ulcer now not well controlled Today, I reviewed his medication list and labwork result. Continue broad spectrum antibiotic. Appreciate hearing consultant's recommendations. No surgical debridement recommended at this time. We will continue supportive care otherwise. Pain control. Repeat lab work in the morning.
--- NOTE | 2017-04-02 13:24 | P.PN ---
Subjective 67-year-old male seen and evaluated by this morning. This been no new events Dr. gómez indicated to the patient he will see the patient in the wound care center at [facility] no further surgical recommendations at this time Objective - Vital Signs Vital signs: Vital Signs Temp 98.2 F 04/02/17 07:00 Pulse 62 04/02/17 08:00 Resp 16 04/02/17 08:00 BP 128/70 04/02/17 07:00 Pulse Ox 92 L 04/02/17 07:00 Intake & Output 04/01/17 04/02/17 04/02/17 18:59 06:59 18:59 Intake Total 660 2030 Balance 660 2030 Weight 99.79 kg Intake: Intake, IV Titration 660 260 Amount Sodium Chloride 0.9% 1, 560 160 000 ml @ 80 mls/hr IV . [id number] [facility] Rx#:[id number] cefTAZidime 2 gm In 100 100 Sodium Chloride 0.9% 100 ml @ 100 mls/hr IVPB Q8HR [facility] Rx#:[id number] Oral 1770 Other: Voiding Method Toilet Toilet Toilet # Voids 1 1 - Exam Physical exam 67-year-old gentleman heart hearing sitting up in bed appears no acute distress Lungs essentially clear adequate air movement on room air no shortness of breath heart S1-S2 audible regular Abdomen soft nontender Extremities a dressing to the left foot dry - Labs CBC & Chem 7: 04/02/17 07:52 04/02/17 07:52 Labs: Abnormal Lab Results - Last 24 Hours (Table) 04/02/17 04/02/17 Range/Units 07:52 07:52 RBC 2.98 L (4.30-5.90) m/uL Hgb 10.4 L (13.0-17.5) gm/dL Hct 31.0 L (39.0-53.0) % MCV 104.3 H (80.0-100.0) fL Plt Count 139 L (150-450) k/uL Lymphocytes # 0.9 L (1.0-4.8) k/uL Chloride 109 H (98-107) mmol/L Microbiology - Last 24 Hours (Table) 03/30/17 17:48 Blood Culture - Preliminary Blood No Growth after 48 hours Assessment and Plan Plan: Impression A history of 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 Gómez will follow patient at the [facility] wound care center Continue with the current wound care as ordered Wound care per infectious disease currently on Santyl antibiotics per infectious disease Pain control DVT and GI prophylaxis we'll sign off no further surgical recommendations at this time The above dictated assessment and findings were discussed with dr gómez Impression and the plan of care have been dictated as directed. Irina Masters nurse practitioner acting as a scribe for dr gómez
--- NOTE | 2017-04-02 17:01 | PN ---
DATE OF SERVICE: 04/02/2017 REASON FOR FOLLOWUP: Left leg wound and a question of secondary cellulitis. INTERVAL HISTORY: The patient is afebrile. Pain to the left lower extremity is currently controlled. The patient denies significant chest pain, shortness of breath or cough. No abdominal pain or any diarrhea. On examination, blood pressure is 98/57 with a pulse of 59, temperature 97.9. He is 94% on room air. General description is an elderly male lying in bed in no distress. RESPIRATORY SYSTEM: Unlabored breathing. Clear to auscultation anteriorly. HEART: S1, S2. Regular rate and rhythm. ABDOMEN: Soft. No tenderness. Left leg wound with less slough tissue. No significant surrounding erythema or any drainage. LABS: Hemoglobin 10.4, white count 4.6 with a BUN of 15, creatinine 1.11. DIAGNOSTIC IMPRESSION AND PLAN: Patient with left lower extremity non-healing wound with previous history of pyoderma gangrenosum. Biopsy stasis dermatitis. He did have some culture positive for pseudomonas, for which the patient has been on appropriate antibiotic and admitted to hospital with more pain. Clinically doubt significant cellulitis, with no significant redness, not running any fever, white count normal. Antibiotic can be safely discontinued. Continue local wound care with Santyl and follow up as an outpatient. ONOFRE
[2017-04-02] MEDS: RIVAROXABAN 10 MG TAB PO SCH (17:08)
[2017-04-03 07:48] VITALS: BP 119/71; RESP 20; TEMP 98.4
[2017-04-03 08:22] LABS: Aty Lym Flag Slight; CH 34.1; CHCM 33.2; HCT 32.6 % (39.0-53.0); HDW 2.45; HGB 10.9 gm/dL (13.0-17.5); MCH 34.3 pg (25.0-35.0); MCHC 33.3 g/dL (31.0-37.0); Macrocytosis Slight; Mean Platelet Volume 7.1; RBC 3.17 m/uL (4.30-5.90); RDW 13.5 % (11.5-15.5); WBC 3.1 k/uL (3.8-10.6); WBC (Perox) 3.21
[2017-04-03] MEDS: COLLAGENASE 250 UNIT/GM OINTMENT 30 GM TUBE TOPICAL SCH (08:33)
[2017-04-03] MEDS: cycloSPORINE 0.05% OPHTH 0.4 ML DROPERETTE BOTH EYES SCH (08:33)
[2017-04-03] MEDS: CIPROFLOXACIN HCL 500 MG TAB PO SCH (08:33)
[2017-04-03] MEDS: ASPIRIN 81 MG CHEW PO SCH (08:33)
[2017-04-03] MEDS: LISINOPRIL 10 MG TAB PO SCH (08:34)
[2017-04-03] MEDS: DOCUSATE 100 MG CAP PO SCH (08:34)
[2017-04-03] MEDS: METOPROLOL SUCCINATE (ER) 25 MG TAB.ER.24H PO SCH (08:34)
[2017-04-03] MEDS: MORPHINE SULFATE ER 15 MG TABLET PO SCH (08:39)
[2017-04-03] MEDS: HYDROcodone/APAP 7.5-325MG 1 EACH TAB PO PRN ×2 (08:40→13:09)
[2017-04-03 09:02] LABS: Anion Gap 7 mmol/L; Blood Urea Nitrogen 14 mg/dL (9-20); Calcium 8.7 mg/dL (8.4-10.2); Carbon Dioxide 23 mmol/L (22-30); Chloride 108 mmol/L (98-107); Glucose 89 mg/dL (74-99); Non-African American GFR(MDRD) >60 (>60 ml/min/1.73 sqM); Sodium 138 mmol/L (137-145)
[2017-04-03 10:41] VITALS: PULSE 58
[2017-04-03 11:06] LABS: Add Differential Manual Differential
[2017-04-03 11:08] LABS: Manual Review Performed; Nucleated Red Blood Cells 0 /100 WBC (0-0); Total Cells Counted 100
--- NOTE | 2017-04-03 12:45 | P.DS ---
Providers Date of admission: 03/30/17 18:47 Expected date of discharge: 04/03/17 Attending physician: Faustino Gibbs Consults: 03/30/17 18:47 Consult Physician Routine Consulting Provider: Shabbir Ibrahim Consult Reason/Comments: left leg wound Do you want consulting provider notified?: Yes, Notify in am 03/31/17 10:32 Consult Physician Routine Consulting Provider: Rosa Maria Reaves Consult Reason/Comments: ulcer infection? Do you want consulting provider notified?: Yes Primary care physician: [facility] Course: 1. 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 Left lower extremity ulcer infection with necrotic tissue and history of pseudomonas 3. Recent left lower extremity DVT on anticoagulation with Rivaroxaban 4. Underlying Crohn's disease with no evidence of exacerbation 5. Essential hypertension: Blood pressure well controlled 6. Mixed hyperlipidemia 7. Chronic pain secondary to left lower extremity chronic ulcer now not well controlled Patient was admitted to the hospital and was seen and evaluated by infectious disease and general surgery. No recommendation for debridement at this time. He received broad spectrum antibiotic intravenously to cover Pseudomonas. He would be discharged home to finish oral course of Cipro as prescribed by the [facility]. He will follow-up as directed. All of his questions answered to his satisfaction. Patient Condition at Discharge: Stable Plan - Discharge Summary New Discharge Prescriptions: Rivaroxaban [Xarelto] 20 mg PO DAILY #30 tab Discharge Medication List Lisinopril [Zestril] 10 mg PO DAILY 02/04/17 [History] cycloSPORINE [Restasis] 2 drop BOTH EYES BID 02/04/17 [History] Albuterol Sulfate [Proventil Hfa] 2 puff INHALATION RT-Q4H PRN 03/18/17 [History ] Ciprofloxacin HCl [Cipro] 500 mg PO Q12HR 03/20/17 [History] Morphine Sulfate ER [Ms Contin] 15 mg PO Q12HR #60 tablet 03/24/17 [Rx] Aspirin 81 mg PO DAILY 04/03/17 [Rx] HYDROcodone/APAP 7.5-325MG [[place] 7.5-325] 1 tab PO Q6HR PRN #0 04/03/17 [Rx] Metoprolol Succinate (ER) [Toprol XL] 25 mg PO DAILY #0 04/03/17 [Rx] Rivaroxaban [Xarelto] 20 mg PO DAILY #30 tab 04/03/17 [Rx] Follow up Appointment(s)/Referral(s): Faustino Gibbs MD [Primary Care Provider] - 1 Week Discharge Disposition: HOME SELF-CARE
--- NOTE | 2017-04-03 15:13 | PN ---
DATE OF SERVICE: 04/03/2017 Reason for follow-up is left lower extremity wound. INTERVAL HISTORY: The patient is afebrile. He is currently breathing comfortably. Denies significant chest pain or cough. No abdominal pain or any worsening pain in the right leg area. No drainage. On examination, blood pressure is 119/71 with a pulse of 63, temperature 98.4. He is 94% on room air. General description is an elderly male, lying in bed in no distress. RESPIRATORY SYSTEM: Unlabored breathing. Clear to auscultation. HEART: S1, S2, regular rate and rhythm. ABDOMEN: Soft, no tenderness. Left leg wound with slough tissue. No surrounding redness. No swelling. No foul smelling drainage. LABS: Hemoglobin is 10.2, white count of 3.1 with a BUN of 14, creatinine 1.08. Blood culture negative. DIAGNOSTIC IMPRESSION AND PLAN: Patient with left leg nonhealing wound with the previous culture positive for Pseudomonas and that has been adequately treated. Clinically currently with no evidence of any secondary bacterial infection with no fever, no surrounding redness. No foul smell and no white count. Antibiotic can be safely discontinued. Local wound care to continue with Santyl. Patient is to follow with [facility] project systems engineer early next week. Patient advised if any recurrence of swelling or redness or any fever to call me.
== END 2017-04-03 14:00 | disposition home or self-care (01) | DRG 593 ==
LOC: EC 16:07 → 5MS5E 18:47 → 5ONC 20:17
PROVIDERS: ADMIT Internal Medicine; ATTEND Internal Medicine
DX: L97.821 Non-pressure chronic ulcer of other part of left lower leg limited to breakdown of skin (principal); L88 Pyoderma gangrenosum; K50.90 Crohn's disease, unspecified, without complications; L03.116 Cellulitis of left lower limb; I10 Essential (primary) hypertension; I87.2 Venous insufficiency (chronic) (peripheral); E78.2 Mixed hyperlipidemia; G89.29 Other chronic pain; I25.2 Old myocardial infarction; Z86.718 Personal history of other venous thrombosis and embolism; Z87.891 Personal history of nicotine dependence; Z79.2 Long term (current) use of antibiotics; Z79.899 Other long term (current) drug therapy
CPT/HCPCS: 36415; 80048; 80053; 85025; 87040; 96365; 99285

== ENCOUNTER → 2017-05-06 | Outpatient (CLI) | payer OTHER ==
[2017-05-06 17:07] LABS: Basophils # (A) 0.1 k/uL (0-0.2); Basophils % (A) 1 %; CH 33.1; CHCM 34.1; Eosinophils # (A) 0.3 k/uL (0-0.7); Eosinophils % (A) 6 %; HCT 35.8 % (39.0-53.0); HDW 2.65; HGB 12.3 gm/dL (13.0-17.5); Luc # (Auto) 0.21; Luc % (Auto) 3; Lymphocytes # (A) 2.5 k/uL (1.0-4.8); Lymphocytes % (A) 40 %; MCH 33.4 pg (25.0-35.0); MCHC 34.3 g/dL (31.0-37.0); MCV 97.5 fL (80.0-100.0); Mean Platelet Volume 6.7; Monocytes # (A) 0.4 k/uL (0-1.0); Monocytes % (A) 7 %; Neutrophils # (A) 2.7 k/uL (1.3-7.7); Neutrophils % (A) 43 %; RBC 3.67 m/uL (4.30-5.90); RDW 14.6 % (11.5-15.5); WBC 6.2 k/uL (3.8-10.6); WBC (Perox) 6.27
[2017-05-06 17:25] LABS: ALT 38 U/L (21-72); AST 36 U/L (17-59); Alkaline Phosphatase 54 U/L (38-126); Anion Gap 9 mmol/L; Blood Urea Nitrogen 25 mg/dL (9-20); Calcium 9.2 mg/dL (8.4-10.2); Carbon Dioxide 22 mmol/L (22-30); Chloride 108 mmol/L (98-107); Glucose 109 mg/dL (74-99); Non-African American GFR(MDRD) >60 (>60 ml/min/1.73 sqM); Potassium 4.3 mmol/L (3.5-5.1); Sodium 139 mmol/L (137-145)
== END | disposition home or self-care (01) ==
LOC: LABWHC1 16:26
PROVIDERS: ATTEND Internal Medicine Infectious Disease
DX: L88 Pyoderma gangrenosum (principal)
CPT/HCPCS: 36415; 80048; 84075; 84450; 84460; 85025

== ENCOUNTER → 2017-06-03 | Outpatient (CLI) | payer OTHER ==
[2017-06-03 12:26] LABS: Basophils # (A) 0.1 k/uL (0-0.2); Basophils % (A) 1 %; CH 32.5; CHCM 32.9; Eosinophils # (A) 0.2 k/uL (0-0.7); Eosinophils % (A) 3 %; HCT 35.8 % (39.0-53.0); HDW 2.54; Luc # (Auto) 0.25; Luc % (Auto) 4; Lymphocytes # (A) 2.2 k/uL (1.0-4.8); Lymphocytes % (A) 33 %; MCH 33.4 pg (25.0-35.0); MCHC 33.6 g/dL (31.0-37.0); MCV 99.4 fL (80.0-100.0); Macrocytosis Slight; Mean Platelet Volume 6.9; Monocytes # (A) 0.5 k/uL (0-1.0); Monocytes % (A) 8 %; Neutrophils # (A) 3.4 k/uL (1.3-7.7); Neutrophils % (A) 52 %; RDW 14.9 % (11.5-15.5); WBC 6.6 k/uL (3.8-10.6); WBC (Perox) 6.79
[2017-06-03 13:02] LABS: ALT 42 U/L (21-72); AST 34 U/L (17-59); Alkaline Phosphatase 61 U/L (38-126); Anion Gap 10 mmol/L; Blood Urea Nitrogen 20 mg/dL (9-20); Calcium 9.5 mg/dL (8.4-10.2); Carbon Dioxide 23 mmol/L (22-30); Chloride 109 mmol/L (98-107); Glucose 96 mg/dL (74-99); Non-African American GFR(MDRD) >60 (>60 ml/min/1.73 sqM); Potassium 4.6 mmol/L (3.5-5.1); Sodium 142 mmol/L (137-145); Total Bilirubin 0.4 mg/dL (0.2-1.3); Total Protein 6.7 g/dL (6.3-8.2)
[2017-06-03 15:59] LABS: Erythrocyte Sedimentation Rate 26 mm/hr (0-15)
== END ==
LOC: LABWHC1 11:47
PROVIDERS: ATTEND Internal Medicine Infectious Disease
DX: L08.0 Pyoderma (principal)
CPT/HCPCS: 36415; 80053; 85025; 85652

== ENCOUNTER → 2018-03-16 | Outpatient (CLI) | payer MEDICARE ==
--- NOTE | 2018-03-16 11:06 | US ---
EXAMINATION TYPE: US venous doppler duplex LE LT DATE OF EXAM: 03/16/2018 10:13 AM COMPARISON: Bilateral lower extremity ultrasound March 07, 2017 CLINICAL HISTORY: R22.42 swelling left leg,M79.604 Pain in right leg. Left medial lower leg ulcer, hi story of left leg DVT, patient not on blood thinners SIDE PERFORMED: Left TECHNIQUE: The lower extremity deep venous system is examined utilizing real time linear array sonog varun with graded compression, doppler sonography and color-flow sonography. VESSELS IMAGED: External Iliac Vein (EIV) Common Femoral Vein Deep Femoral Vein Greater Saphenous Vein * Femoral Vein Popliteal Vein Small Saphenous Vein * Proximal Calf Veins (* superficial vessels) Left Leg: Appears positive for DVT distal popliteal and anterior proximal calf vein, exam done for i nsufficiency also: reflux seen at the level of distal femoral vein. IMPRESSION: Persistent partially occlusive DVT in the mid to distal left popliteal vein extending in to calf veins.
== END | disposition home or self-care (01) ==
LOC: RADUSWWP 09:13
PROVIDERS: ATTEND Internal Medicine Infectious Disease
DX: I82.432 Acute embolism and thrombosis of left popliteal vein (principal); M79.604 Pain in right leg

== ENCOUNTER → 2018-04-29 | Outpatient (CLI) | payer MEDICARE ==
--- NOTE | 2018-04-29 11:47 | US ---
EXAMINATION TYPE: US kidneys/renal and bladder DATE OF EXAM: 04/29/2018 COMPARISON: NONE CLINICAL HISTORY: R82.99 ABNORMAL URINE FINDINGS. abnormal urine results, no pain EXAM MEASUREMENTS: Right Kidney: 11.3 x 6.8 x 5.8 cm Left Kidney: 10.9 x 5.0 x 5.7 cm Right Kidney: Mid/medial cystic appearing lesion seen = 5.2 x 5.5 x 5.7 cm large peripelvic cyst co uld be considered. Lack of ureteral dilatation or calyceal dilatation suggests hydronephrosis to be u nlikely. Left Kidney: wnl Bladder: distended, wnl Bilateral Jets seen IMPRESSION: Large peripelvic cyst on the right kidney appears to be present.
== END | disposition home or self-care (01) ==
LOC: RADUSWWP 09:03
PROVIDERS: ATTEND Family Medicine
DX: R82.99 Other abnormal findings in urine (principal)
CPT/HCPCS: 76770

== ENCOUNTER → 2018-06-30 | Outpatient (CLI) | payer MEDICARE, OTHER ==
[2018-06-30 10:57] LABS: Basophils # (A) 0.1 k/uL (0-0.2); Basophils % (A) 1 %; Eosinophils # (A) 0.3 k/uL (0-0.7); Eosinophils % (A) 4 %; HGB 12.8 gm/dL (13.0-17.5); Lymphocytes # (A) 2.7 k/uL (1.0-4.8); Lymphocytes % (A) 36 %; MCH 31.6 pg (25.0-35.0); MCHC 31.3 g/dL (31.0-37.0); Macrocytosis Slight; Monocytes # (A) 0.7 k/uL (0-1.0); Monocytes % (A) 9 %; Neutrophils # (A) 3.5 k/uL (1.3-7.7); Neutrophils % (A) 47 %; Platelet Count 184 k/uL (150-450); RBC 4.06 m/uL (4.30-5.90); RDW 14.6 % (11.5-15.5); WBC 7.4 k/uL (3.8-10.6)
[2018-06-30 11:03] LABS: Calcium 8.9 mg/dL (8.4-10.2); Potassium 4.5 mmol/L (3.5-5.1); Total Bilirubin 0.4 mg/dL (0.2-1.3); Total Protein 6.8 g/dL (6.3-8.2)
== END | disposition home or self-care (01) ==
LOC: LABWHC1 10:02
PROVIDERS: ATTEND Physician Assistant
DX: K50.90 Crohn's disease, unspecified, without complications (principal)
CPT/HCPCS: 36415; 80053; 85025

== ENCOUNTER → 2018-06-30 | Outpatient (CLI) | payer MEDICARE, OTHER ==
--- NOTE | 2018-06-30 13:19 | US ---
EXAMINATION TYPE: US venous doppler duplex LE LT DATE OF EXAM: 06/30/2018 9:25 AM COMPARISON: 03/16/2018 CLINICAL HISTORY: I82.409 acute embolism and thrombosis of unspecific. Pt on Xarelto for 3 months, history distal popliteal clot SIDE PERFORMED: Left TECHNIQUE: The lower extremity deep venous system is examined utilizing real time linear array sonog varun with graded compression, doppler sonography and color-flow sonography. VESSELS IMAGED: External Iliac Vein (EIV) Common Femoral Vein Deep Femoral Vein Greater Saphenous Vein * Femoral Vein Popliteal Vein Small Saphenous Vein * Proximal Calf Veins (* superficial vessels) There is lack of compressibility at the level of the peripheral aspect of the popliteal vein, low-lev el internal echoes are present similar to prior exam, there is lack of color flow Left Leg: Left Leg: Appears positive for DVT distal popliteal and anterior proximal calf vein, stabl e IMPRESSION: Deep venous thrombosis shows a similar appearance to prior exam in the left lower extre mity.
== END | disposition home or self-care (01) ==
LOC: RADUSWWP 08:35
PROVIDERS: ATTEND Family Medicine
DX: I82.432 Acute embolism and thrombosis of left popliteal vein (principal); I82.4Z2 Acute embolism and thrombosis of unspecified deep veins of left distal lower extremity

== ENCOUNTER → 2018-07-06 | Outpatient (CLI) | payer MEDICARE, OTHER ==
[2018-07-06 14:12] LABS: Basophils # (A) 0.1 k/uL (0-0.2); Basophils % (A) 1 %; Eosinophils # (A) 0.2 k/uL (0-0.7); Eosinophils % (A) 3 %; HCT 40.3 % (39.0-53.0); HGB 13.6 gm/dL (13.0-17.5); Lymphocytes # (A) 2.1 k/uL (1.0-4.8); Lymphocytes % (A) 31 %; MCHC 33.6 g/dL (31.0-37.0); MCV 98.1 fL (80.0-100.0); Monocytes # (A) 0.6 k/uL (0-1.0); Monocytes % (A) 10 %; Neutrophils # (A) 3.5 k/uL (1.3-7.7); Neutrophils % (A) 52 %; Platelet Count 185 k/uL (150-450); RBC 4.11 m/uL (4.30-5.90); RDW 14.1 % (11.5-15.5); WBC 6.6 k/uL (3.8-10.6)
[2018-07-06 14:23] LABS: Calcium 9.4 mg/dL (8.4-10.2); Potassium 4.5 mmol/L (3.5-5.1)
== END | disposition home or self-care (01) ==
LOC: LABWHC1 13:30
PROVIDERS: ATTEND Family Medicine
DX: N18.3 Chronic kidney disease, stage 3 (moderate) (principal)
CPT/HCPCS: 36415; 80048; 82306; 85025

== ENCOUNTER → 2018-08-11 | Outpatient (CLI) | payer MEDICARE, OTHER ==
[2018-08-11 15:29] LABS: Basophils # (A) 0.1 k/uL (0-0.2); Basophils % (A) 1 %; Eosinophils # (A) 0.2 k/uL (0-0.7); Eosinophils % (A) 4 %; HCT 44.7 % (39.0-53.0); HGB 14.7 gm/dL (13.0-17.5); Lymphocytes # (A) 2.1 k/uL (1.0-4.8); Lymphocytes % (A) 34 %; MCH 32.2 pg (25.0-35.0); MCV 97.7 fL (80.0-100.0); Monocytes # (A) 0.4 k/uL (0-1.0); Monocytes % (A) 6 %; Neutrophils # (A) 3.2 k/uL (1.3-7.7); Neutrophils % (A) 53 %; Platelet Count 202 k/uL (150-450); RBC 4.58 m/uL (4.30-5.90); RDW 13.9 % (11.5-15.5); WBC 6.1 k/uL (3.8-10.6)
[2018-08-11 15:38] LABS: Albumin 4.3 g/dL (3.5-5.0); Calcium 9.4 mg/dL (8.4-10.2); Potassium 4.5 mmol/L (3.5-5.1); Total Bilirubin 0.6 mg/dL (0.2-1.3); Total Protein 7.4 g/dL (6.3-8.2)
== END | disposition home or self-care (01) ==
LOC: LABWHC1 14:36
PROVIDERS: ATTEND Internal Medicine Gastroenterology
DX: Z51.81 Encounter for therapeutic drug level monitoring (principal); K50.00 Crohn's disease of small intestine without complications
CPT/HCPCS: 36415; 80053; 85025

== ENCOUNTER → 2018-08-25 | Outpatient (CLI) | payer MEDICARE, OTHER ==
[2018-08-25 13:47] LABS: Basophils # (A) 0.1 k/uL (0-0.2); Basophils % (A) 1 %; Eosinophils # (A) 0.2 k/uL (0-0.7); Eosinophils % (A) 3 %; HCT 41.2 % (39.0-53.0); HGB 13.5 gm/dL (13.0-17.5); Lymphocytes # (A) 2.2 k/uL (1.0-4.8); Lymphocytes % (A) 31 %; MCH 32.6 pg (25.0-35.0); MCHC 32.7 g/dL (31.0-37.0); MCV 99.5 fL (80.0-100.0); Mean Platelet Volume 6.9; Monocytes # (A) 0.4 k/uL (0-1.0); Monocytes % (A) 5 %; Neutrophils % (A) 57 %; Platelet Count 175 k/uL (150-450); RBC 4.14 m/uL (4.30-5.90)
[2018-08-25 14:28] LABS: Albumin 4.2 g/dL (3.5-5.0); Calcium 9.5 mg/dL (8.4-10.2); Potassium 4.5 mmol/L (3.5-5.1); Total Bilirubin 0.4 mg/dL (0.2-1.3); Total Protein 7.1 g/dL (6.3-8.2)
== END ==
LOC: LABWHC1 13:02
PROVIDERS: ATTEND Internal Medicine Gastroenterology
DX: K50.00 Crohn's disease of small intestine without complications (principal); Z51.81 Encounter for therapeutic drug level monitoring
CPT/HCPCS: 36415; 80053; 85025

== ENCOUNTER → 2018-09-04 | Outpatient (CLI) | payer MEDICARE, OTHER | END | disposition home or self-care (01) | LOC: LABWHC1 13:00 | PROVIDERS: ATTEND Internal Medicine Gastroenterology | DX: K50.00 Crohn's disease of small intestine without complications (principal) | CPT/HCPCS: 36415; 80299; 82397 ==

== ENCOUNTER → 2018-09-29 | Outpatient (CLI) | payer MEDICARE, OTHER ==
[2018-09-29 21:44] LABS: Anion Gap 9.5 mmol/L (4.00-12.00); Calcium 9.5 mg/dL (8.7-10.3); Carbon Dioxide 24.5 mmol/L (21.6-31.8); Potassium 4.3 mmol/L (3.5-5.5)
== END | disposition home or self-care (01) ==
LOC: LABWHC1 12:23
PROVIDERS: ATTEND Family Medicine
DX: N18.3 Chronic kidney disease, stage 3 (moderate) (principal); R94.5 Abnormal results of liver function studies
CPT/HCPCS: 36415; 80048; 84450; 84460

== ENCOUNTER → 2018-11-06 | Outpatient (CLI) | payer MEDICARE, OTHER ==
--- NOTE | 2018-11-06 10:14 | US ---
EXAMINATION TYPE: US liver DATE OF EXAM: 11/06/2018 COMPARISON: 04/29/2018 CLINICAL HISTORY: K76.0 Fatty Liver. no symptoms EXAM MEASUREMENTS: Liver Length: 19.7 cm Gallbladder Wall: 0.2 cm CBD: 0.3 cm Right Kidney: 10.9 x 7.5 x 6.5 cm Pancreas: not seen Liver: very difficult to penetrate, enlarged. Findings compatible with mild to moderate fatty infilt ration of liver. Gallbladder: appears contracted or very small in size, patient is NPO Evidence for sonographic Blackburn's sign: no CBD: only can visualize cystic duct do to fatty, coarse liver texture makes penetrating difficult Right Kidney: 5.8 x 5.4 x 4.9 cm mid pole cyst . This was present previously. IMPRESSION: 1. Moderate fatty infiltration liver. 2. Simple appearing mid right renal cyst
== END ==
LOC: RADUSWWP 07:44
PROVIDERS: ATTEND Family Medicine
DX: K76.0 Fatty (change of) liver, not elsewhere classified (principal); N28.1 Cyst of kidney, acquired
CPT/HCPCS: 76705

== ENCOUNTER → 2019-02-11 | Outpatient (CLI) | payer MEDICARE, OTHER ==
--- NOTE | 2019-02-11 09:04 | US ---
EXAMINATION TYPE: US venous doppler duplex LE LT DATE OF EXAM: 02/11/2019 8:18 AM COMPARISON: Prior left leg venous ultrasound June 30, 2018 CLINICAL HISTORY: I82.402 Acute embolism and thrombosis. Hx of left popliteal DVT x 8 months ago. On Xeralto. Hx left leg ulcer, no surgeries SIDE PERFORMED: Left TECHNIQUE: The lower extremity deep venous system is examined utilizing real time linear array sonog varun with graded compression, doppler sonography and color-flow sonography. VESSELS IMAGED: External Iliac Vein (EIV) Common Femoral Vein Deep Femoral Vein Greater Saphenous Vein * Femoral Vein Popliteal Vein Small Saphenous Vein * Proximal Calf Veins (* superficial vessels) Left Leg: Appears POSITIVE for DVT in left distal Popliteal vein, nonoccluding. Visual internal ech oes visualized, compression deferred. Grayscale, color doppler, spectral doppler imaging performed of the deep veins of the left lower extr emity. There is normal flow, compressibility, vascular waveforms. IMPRESSION: There is persistent DVT in the distal popliteal vein with internal echoes and diminished color flow remaining present similar to prior study. No new DVT is evident.
== END ==
LOC: RADUSWWP 07:42
PROVIDERS: ATTEND Family Medicine
DX: I82.432 Acute embolism and thrombosis of left popliteal vein (principal)

== ENCOUNTER → 2019-04-23 | Outpatient (CLI) | payer MEDICARE, OTHER ==
[2019-04-23 08:15] LABS: Appearance,Urine Clear (Clear); Bilirubin,Urine Negative (Negative); Blood,Urine Negative (Negative); Color,Urine Light Yellow; Glucose,Urine (UA) Negative (Negative); Ketones,Urine Negative (Negative); Leukocyte Esterase,Urine Negative (Negative); Nitrite,Urine Negative (Negative); PH, Urine 5.5 (5.0-8.0); Protein,Urine Negative (Negative); Specific Gravity,Urine 1.012 (1.001-1.035); Urobilinogen,Urine <2.0 mg/dL (<2.0)
[2019-04-23 16:51] LABS: LDL Cholesterol,Calculated 90.6 mg/dL (0.0-131.0); VLDL Calculation 48.4 mg/dL (5.00-40.00)
== END | disposition home or self-care (01) ==
LOC: LABWHC1 07:24
PROVIDERS: ATTEND Family Medicine
DX: Z00.01 Encounter for general adult medical examination with abnormal findings (principal); E78.5 Hyperlipidemia, unspecified; N40.0 Benign prostatic hyperplasia without lower urinary tract symptoms
CPT/HCPCS: 36415; 80061; 81003; 86803

== ENCOUNTER 2019-06-16 09:20 | Day surgery (SDC) | payer MEDICARE, OTHER ==
[2019-06-11 11:57] VITALS: BMI 31.6
[~2019-06-16 09:20] MED LIST: LACTATED RINGERS 1,000 ML IV SCH; LIDOCAINE 1% 20 ML VIAL (10MG/ML) FOR IV START INTRADERMA PRN
[2019-06-16 09:45] VITALS: TEMP 97.8
[2019-06-16] MEDS ORDERED: LACTATED RINGERS 1,000 ML IV ONE (09:45)
[2019-06-16] MEDS ORDERED: PROPOFOL 10 MG/ML 20 ML VIAL IV ONE (10:29)
--- NOTE | 2019-06-16 10:51 | P.PCN ---
Date of Procedure: 06/16/19 Procedure(s) Performed: BRIEF HISTORY: Patient is a 61-year-old pleasant white male, scheduled for an elective colonoscopy as a part of surveillance and history of Crohn's disease diagnosed 20 years ago. He has history of pyoderma gangrenosum and is maintained on methotrexate and Humira every 2 weeks. His last colonoscopy was 15 years ago. Crohn's ileitis in clinical remission. PROCEDURE PERFORMED: Colonoscopy with snare polypectomy. PREOPERATIVE DIAGNOSIS: Long-standing history of Crohn's ileitis. IV sedation per Anesthesia. PROCEDURE: After informed consent was obtained, the patient, was brought into the endoscopy unit. IV sedation was administered by Anesthesia under continuous monitoring. Digital rectal examination was normal. Initially the Olympus CF-160 flexible video colonoscope was then inserted in the rectum, gradually advanced into the cecum without any difficulty. Careful examination was performed as the scope was gradually being withdrawn. Ileocecal valve and the appendiceal orifice were visualized and appeared normal. Prep was excellent. Terminal ileum could not be intubated. Mucosa of the cecum appeared normal. In the ascending colon there was a 7-8 mm polyp that was removed by snare polypectomy. Rest of the, ascending colon, transverse colon, descending colon, sigmoid colon, and rectum appeared normal. Scattered sigmoid diverticulosis seen. Retroflexion was performed in the rectum and no lesions were seen. The patient tolerated the procedure well. IMPRESSION: 7-8 mm ascending colon polyp status post polypectomy Scattered sigmoidal diverticulosis RECOMMENDATIONS: Findings of this examination were discussed with the patient well as his family. He was advised to follow with the biopsy results and if the biopsy shows an adenoma he can have a repeat colonoscopy in 5 years.
[2019-06-16 10:58] VITALS: RESP 16
[2019-06-16 11:13] VITALS: BP 135/83; PULSE 61
== END 2019-06-16 11:23 | disposition home or self-care (01) ==
LOC: ORWHC2ENDO 09:20
PROVIDERS: ATTEND Internal Medicine Gastroenterology
DX: K63.5 Polyp of colon (principal); K57.90 Diverticulosis of intestine, part unspecified, without perforation or abscess without bleeding; K50.00 Crohn's disease of small intestine without complications; I25.10 Atherosclerotic heart disease of native coronary artery without angina pectoris; I10 Essential (primary) hypertension; Z87.891 Personal history of nicotine dependence; I25.2 Old myocardial infarction; E78.5 Hyperlipidemia, unspecified; Z79.82 Long term (current) use of aspirin; Z79.899 Other long term (current) drug therapy; Z88.8 Allergy status to other drugs, medicaments and biological substances
CPT/HCPCS: 88305; 45385; J2704

== ENCOUNTER → 2019-07-05 | Outpatient (CLI) | payer MEDICARE, OTHER ==
[2019-07-05 12:44] LABS: HCT 39.4 % (39.0-53.0); HGB 13.5 gm/dL (13.0-17.5); MCH 34.5 pg (25.0-35.0); MCHC 34.3 g/dL (31.0-37.0); MCV 100.5 fL (80.0-100.0); Macrocytosis Slight; Mean Platelet Volume 7.3; Platelet Count 201 k/uL (150-450); RBC 3.92 m/uL (4.30-5.90); RDW 15.1 % (11.5-15.5); WBC 7.7 k/uL (3.8-10.6)
[2019-07-05 18:51] LABS: African American GFR (CKD) 59.4 (60.0-200.0); Albumin 4.3 g/dL (3.80-4.90); Albumin/Globulin Ratio 2.15 (1.60-3.17); Anion Gap 5.8 mmol/L (4.00-12.00); Calcium 9.2 mg/dL (8.7-10.3); Carbon Dioxide 26.2 mmol/L (21.6-31.8); Potassium 4.6 mmol/L (3.5-5.5); Total Bilirubin 0.4 mg/dL (0.3-1.2); Total Protein 6.3 g/dL (6.2-8.2)
== END ==
LOC: LABWHC1 11:37
PROVIDERS: ATTEND Physician Assistant
DX: K50.00 Crohn's disease of small intestine without complications (principal)
CPT/HCPCS: 36415; 80053; 80074; 85027

== ENCOUNTER → 2019-10-26 | Outpatient (CLI) | payer MEDICARE, OTHER ==
--- NOTE | 2019-10-26 12:32 | XR ---
EXAMINATION TYPE: XR knee complete RT DATE OF EXAM: 10/26/2019 CLINICAL HISTORY: Right knee pain after twisting injury in April. History of meniscal tear surgery. TECHNIQUE: Three views of the right knee are obtained. COMPARISON: None. FINDINGS: There is no acute fracture/dislocation evident in right knee. The tri-compartment joint s paces appear aligned. There is mild medial compartment joint space narrowing and very small medial co mpartment osteophytes. Superior patellar pole enthesophyte is seen at the insertion of the quadriceps tendon.. The overlying soft tissue appears unremarkable. IMPRESSION: 1. There is no acute fracture or dislocation in the right knee. 2. Mild medial compartment arthropathy and patellar enthesophyte noted at the insertion of the bradley ceps tendon.
== END | disposition home or self-care (01) ==
LOC: RADXRMAIN 11:40
PROVIDERS: ATTEND Family Medicine
DX: M12.861 Other specific arthropathies, not elsewhere classified, right knee (principal)

== ENCOUNTER → 2020-04-11 | Outpatient (CLI) | payer MEDICARE, OTHER ==
[2020-04-11 12:11] LABS: Appearance,Urine Clear (Clear); Bilirubin,Urine Negative (Negative); Blood,Urine Negative (Negative); Color,Urine Yellow; Glucose,Urine (UA) Negative (Negative); Ketones,Urine Negative (Negative); Leukocyte Esterase,Urine Negative (Negative); Nitrite,Urine Negative (Negative); PH, Urine 5.5 (5.0-8.0); Protein,Urine Trace (Negative); Specific Gravity,Urine 1.018 (1.001-1.035); Urobilinogen,Urine <2.0 mg/dL (<2.0)
[2020-04-11 12:16] LABS: HCT 38.5 % (39.0-53.0); HGB 12.7 gm/dL (13.0-17.5); MCH 34.2 pg (25.0-35.0); MCHC 32.8 g/dL (31.0-37.0); Macrocytosis Slight; Mean Platelet Volume 7.6; Platelet Count 170 k/uL (150-450); RDW 13.4 % (11.5-15.5); WBC 5.7 k/uL (3.8-10.6)
[2020-04-11 20:03] LABS: African American GFR (CKD) 64.5 (60.0-200.0); Albumin 4.4 g/dL (3.80-4.90); Albumin/Globulin Ratio 2.2 (1.60-3.17); Anion Gap 7.6 mmol/L (4.00-12.00); BUN/Creat Ratio 20.77 Ratio (12.00-20.00); Calcium 9.3 mg/dL (8.7-10.3); Carbon Dioxide 23.4 mmol/L (21.6-31.8); Chol/HDL Ratio 4.35; LDL Cholesterol,Calculated 72.6 mg/dL (0.0-131.0); Non-African American GFR(CKD) 55.7 (60.0-200.0); Potassium 4.4 mmol/L (3.5-5.5); Total Bilirubin 0.6 mg/dL (0.2-1.2); Total Protein 6.4 g/dL (6.2-8.2); Uric Acid 7.2 mg/dL (3.7-8.7); VLDL Calculation 51.4 mg/dL (5.00-40.00)
[2020-04-11 20:04] LABS: T4, Free (Free Thyroxine) 0.9 ng/dL (0.80-1.80)
== END | disposition home or self-care (01) ==
LOC: LABWHC1 10:49
PROVIDERS: ATTEND Family Medicine
DX: I10 Essential (primary) hypertension (principal); E78.5 Hyperlipidemia, unspecified; N40.0 Benign prostatic hyperplasia without lower urinary tract symptoms; M10.9 Gout, unspecified
CPT/HCPCS: 36415; 80053; 80061; 81003; 84439; 84443; 84550; 85027

== ENCOUNTER → 2020-04-21 | Outpatient (CLI) | payer MEDICARE, OTHER ==
[2020-04-21 10:12] LABS: HCT 37.1 % (39.0-53.0); HGB 12.7 gm/dL (13.0-17.5); MCH 35.9 pg (25.0-35.0); MCHC 34.2 g/dL (31.0-37.0); MCV 104.9 fL (80.0-100.0); Macrocytosis Slight; Mean Platelet Volume 7.4; Platelet Count 172 k/uL (150-450); RBC 3.54 m/uL (4.30-5.90); RDW 13.5 % (11.5-15.5); WBC 5.7 k/uL (3.8-10.6)
== END | disposition home or self-care (01) ==
LOC: LABWHC1 09:32
PROVIDERS: ATTEND Physician Assistant
DX: R74.8 Abnormal levels of other serum enzymes (principal); K50.00 Crohn's disease of small intestine without complications; K50.90 Crohn's disease, unspecified, without complications
CPT/HCPCS: 36415; 80145; 82397; 82607; 82747; 82977; 84450; 84460; 85027

== ENCOUNTER → 2020-07-11 | Outpatient (CLI) | payer MEDICARE, OTHER ==
[2020-07-11 12:59] LABS: Appearance,Urine Clear (Clear); Bilirubin,Urine Negative (Negative); Blood,Urine Negative (Negative); Color,Urine Yellow; Glucose,Urine (UA) Negative (Negative); Ketones,Urine Negative (Negative); Leukocyte Esterase,Urine Negative (Negative); Nitrite,Urine Negative (Negative); PH, Urine 5.5 (5.0-8.0); Protein,Urine Negative (Negative); Specific Gravity,Urine 1.014 (1.001-1.035); Urobilinogen,Urine <2.0 mg/dL (<2.0)
[2020-07-11 16:58] LABS: Uric Acid 5.7 mg/dL (3.7-8.7)
== END | disposition home or self-care (01) ==
LOC: LABWHC1 10:10
PROVIDERS: ATTEND Physician Assistant
DX: Z00.01 Encounter for general adult medical examination with abnormal findings (principal); M10.9 Gout, unspecified; K50.90 Crohn's disease, unspecified, without complications
CPT/HCPCS: 36415; 81003; 84443; 84550

== ENCOUNTER → 2020-11-23 | Outpatient (CLI) | payer MEDICARE, OTHER ==
[2020-11-23 09:04] LABS: Appearance,Urine Clear (Clear); Bilirubin,Urine Negative (Negative); Blood,Urine Negative (Negative); Color,Urine Yellow; Glucose,Urine (UA) Trace (Negative); HCT 41.4 % (39.0-53.0); HGB 13.8 gm/dL (13.0-17.5); Ketones,Urine Negative (Negative); Leukocyte Esterase,Urine Negative (Negative); MCH 33.1 pg (25.0-35.0); MCHC 33.3 g/dL (31.0-37.0); MCV 99.2 fL (80.0-100.0); Mean Platelet Volume 7.5; Mucus,Urine Rare /hpf; Nitrite,Urine Negative (Negative); PH, Urine 5.5 (5.0-8.0); Platelet Count 195 k/uL (150-450); Protein,Urine 1+ (Negative); RBC 4.17 m/uL (4.30-5.90); RBC,Urine <1 /hpf (0-5); Urobilinogen,Urine <2.0 mg/dL (<2.0); WBC 7.1 k/uL (3.8-10.6); WBC,Urine 1 /hpf (0-5)
[2020-11-23 15:55] LABS: African American GFR (CKD) 50.2 (60.0-200.0); Anion Gap 7.9 mmol/L (4.00-12.00); BUN/Creat Ratio 14.38 Ratio (12.00-20.00); Calcium 9.4 mg/dL (8.7-10.3); Carbon Dioxide 25.1 mmol/L (21.6-31.8); Chol/HDL Ratio 5.09; LDL Cholesterol,Calculated 67.6 mg/dL (0.0-131.0); Magnesium 1.8 mg/dL (1.5-2.4); Non-African American GFR(CKD) 43.3 (60.0-200.0); Uric Acid 5.1 mg/dL (3.7-8.7); VLDL Calculation 63.4 mg/dL (5.00-40.00)
== END | disposition home or self-care (01) ==
LOC: LABWHC1 08:32
PROVIDERS: ATTEND Family Medicine
DX: M10.9 Gout, unspecified (principal); I12.9 Hypertensive chronic kidney disease with stage 1 through stage 4 chronic kidney disease, or unspecified chronic kidney disease; N18.9 Chronic kidney disease, unspecified; E78.5 Hyperlipidemia, unspecified; N40.0 Benign prostatic hyperplasia without lower urinary tract symptoms; E66.9 Obesity, unspecified; E55.9 Vitamin D deficiency, unspecified; R94.5 Abnormal results of liver function studies
CPT/HCPCS: 36415; 80048; 80061; 81001; 83735; 84450; 84460; 84550; 85027

== ENCOUNTER → 2020-11-30 | Outpatient (CLI) | payer MEDICARE, OTHER ==
[2020-12-01 04:17] LABS: African American GFR (CKD) 50.2 (60.0-200.0); Anion Gap 13.1 mmol/L (4.00-12.00); BUN/Creat Ratio 18.75 Ratio (12.00-20.00); Calcium 9.8 mg/dL (8.7-10.3); Carbon Dioxide 20.9 mmol/L (21.6-31.8); Non-African American GFR(CKD) 43.3 (60.0-200.0); Potassium 4.7 mmol/L (3.5-5.5)
== END | disposition home or self-care (01) ==
LOC: LABWHC1 13:18
PROVIDERS: ATTEND Family Medicine
DX: E11.9 Type 2 diabetes mellitus without complications (principal); I10 Essential (primary) hypertension; E55.9 Vitamin D deficiency, unspecified
CPT/HCPCS: 36415; 80048; 82306; 83036

== ENCOUNTER → 2020-12-11 | Outpatient (CLI) | payer MEDICARE, OTHER ==
[2020-12-11 20:27] LABS: Calcium 9.8 mg/dL (8.7-10.3); Carbon Dioxide 25.9 mmol/L (21.6-31.8); Chloride 105 mmol/L (96-109); Glucose 155 mg/dL (70-110); Non-African American GFR(CKD) 50.9 (60.0-200.0); Potassium 4.4 mmol/L (3.5-5.5); Sodium 141 mmol/L (135-145)
== END | disposition home or self-care (01) ==
LOC: LABWHC1 11:25
PROVIDERS: ATTEND Family Medicine
DX: E11.65 Type 2 diabetes mellitus with hyperglycemia (principal); I10 Essential (primary) hypertension
CPT/HCPCS: 36415; 80048; 82009

== ENCOUNTER → 2020-12-21 | Outpatient (CLI) | payer MEDICARE, OTHER ==
[2020-12-21 20:07] LABS: Anion Gap 8.1 mmol/L (4.00-12.00); Calcium 8.8 mg/dL (8.7-10.3); Carbon Dioxide 24.9 mmol/L (21.6-31.8); Non-African American GFR(CKD) 50.9 (60.0-200.0); Potassium 4.2 mmol/L (3.5-5.5)
== END | disposition home or self-care (01) ==
LOC: LABWHC1 09:39
PROVIDERS: ATTEND Family Medicine
DX: E11.65 Type 2 diabetes mellitus with hyperglycemia (principal)
CPT/HCPCS: 36415; 80048

== ENCOUNTER → 2021-04-11 | Outpatient (CLI) | payer MEDICARE, OTHER ==
[2021-04-11 19:54] LABS: HCT 43.8 % (39.6-50.0); HGB 14.1 g/dL (13.0-17.0); MCH 32.9 pg (27.0-32.0); MCHC 32.2 g/dL (32.0-37.0); MCV 102.1 fL (80.0-97.0); Mean Platelet Volume 10.2 fL (9.5-12.2); Platelet Count 190 X 10*3/uL (140-440); RBC 4.29 X 10*6/uL (4.40-5.60); RDW 12.7 % (11.5-14.5); WBC 8.54 X 10*3/uL (4.50-10.00)
[2021-04-11 22:17] LABS: Hemoglobin A1C 6.6 % (4.0-6.0)
[2021-04-12 16:10] LABS: African American GFR (CKD) 64.1 (60.0-200.0); Anion Gap 14.5 mmol/L (4.00-12.00); BUN/Creat Ratio 19.23 Ratio (12.00-20.00); Carbon Dioxide 20.5 mmol/L (21.6-31.8); Chol/HDL Ratio 3.69; Non-African American GFR(CKD) 55.3 (60.0-200.0); Potassium 4.5 mmol/L (3.5-5.5); Uric Acid 6.4 mg/dL (3.7-8.7)
== END | disposition home or self-care (01) ==
LOC: LABWHC1 11:44
PROVIDERS: ATTEND Family Medicine
DX: E11.65 Type 2 diabetes mellitus with hyperglycemia (principal); M10.9 Gout, unspecified; E78.5 Hyperlipidemia, unspecified; I10 Essential (primary) hypertension
CPT/HCPCS: 36415; 80048; 80061; 83036; 84450; 84460; 84550; 85027

== ENCOUNTER → 2021-04-20 | Outpatient (CLI) | payer MEDICARE, OTHER | END | disposition home or self-care (01) | LOC: LABWHC1 13:11 | PROVIDERS: ATTEND Family Medicine | DX: D64.9 Anemia, unspecified (principal) | CPT/HCPCS: 36415; 82607; 82747 ==

== ENCOUNTER → 2021-06-01 | Outpatient (CLI) | payer MEDICARE, OTHER ==
[2021-06-01 20:49] LABS: Cyclic Citrull Pep IgG Unit 1.6 U/mL; Cyclic Citrullinated Pep IgG NEGATIVE (NEGATIVE)
[2021-06-01 21:16] LABS: Basophils % (A) 1 %; Eosinophils # (A) 0.1 X 10*3/uL (0.04-0.35); Eosinophils % (A) 1 %; HCT 40.6 % (39.6-50.0); HGB 12.9 g/dL (13.0-17.0); Lymphocytes % (A) 34 %; MCH 32.5 pg (27.0-32.0); MCHC 31.8 g/dL (32.0-37.0); MCV 102.3 fL (80.0-97.0); Mean Platelet Volume 10.2 fL (9.5-12.2); Monocytes # (A) 0.7 X 10*3/uL (0.20-1.00); Monocytes % (A) 8 %; Neutrophils # (A) 4.8 X 10*3/uL (1.80-7.70); Neutrophils % (A) 56 %; Platelet Count 195 X 10*3/uL (140-440); RBC 3.97 X 10*6/uL (4.40-5.60); RDW 13.6 % (11.5-14.5); WBC 8.6 X 10*3/uL (4.50-10.00)
[2021-06-01 23:54] LABS: African American GFR (CKD) 64.1 (60.0-200.0); Albumin 4.4 g/dL (3.80-4.90); Albumin/Globulin Ratio 1.57 (1.60-3.17); Anion Gap 9.1 mmol/L (4.00-12.00); BUN/Creat Ratio 31.54 Ratio (12.00-20.00); Carbon Dioxide 20.9 mmol/L (21.6-31.8); Globulin 2.8 g/dL (1.6-3.3); Non-African American GFR(CKD) 55.3 (60.0-200.0); Potassium 4.5 mmol/L (3.5-5.5); Total Bilirubin 0.4 mg/dL (0.2-1.2); Total Protein 7.2 g/dL (6.2-8.2)
[2021-06-02 00:55] LABS: C Reactive Protein <0.4 mg/dL (0.0-0.8); Creatine Kinase 163 U/L (35-257); Rheumatoid Factor, Qnt 7 IU/mL (0-15); Uric Acid 7.5 mg/dL (3.7-8.7)
[2021-06-02 10:17] LABS: HLA B27 NEGATIVE
[2021-06-04 09:16] LABS: Angiotensin-1 Converting Enz. 4 U/L (8-52)
== END | disposition home or self-care (01) ==
LOC: LABWHC1 10:39
PROVIDERS: ATTEND Orthopaedic Surgery
DX: K50.00 Crohn's disease of small intestine without complications (principal); M75.41 Impingement syndrome of right shoulder; M25.532 Pain in left wrist; M50.10 Cervical disc disorder with radiculopathy, unspecified cervical region; E55.9 Vitamin D deficiency, unspecified; E03.9 Hypothyroidism, unspecified
CPT/HCPCS: 36415; 80053; 80145; 82164; 82306; 82397; 82550; 83520; 84439; 84443; 84550; 85025; 85652; 86038; 86140; 86200; 86431; 86812

== ENCOUNTER → 2021-09-26 | Outpatient (CLI) | payer MEDICARE, OTHER ==
--- NOTE | 2021-09-26 12:44 | P.PAINCN ---
History of Present Illness - Reason for Consult Consult date: 09/26/21 - Chief Complaint Neck pain - History of Present Illness Chris is a 71-year-old male presenting to clinic today for his initial evaluation and pain management. He was referred to our office from Dr. Ulloa. He reports he onset of his symptoms have happened over many years. Pain is mostly located on the right side of his neck to the top of his shoulders. He reports his neck pain has been ongoing for 1 or 2 years now. He describes it as a cramping, aching, and sharp, dull, constant sensation. Pain is aggravated with turning his head from excessive use. Pain is better when he achieves certain positions and with rest. He currently has been in physical therapy is different pain medications including [place] 5 and tramadol 50 on occasion. He has not had any neurocritical care physician but he does get massage therapy with his physical therapy. He also uses a neck brace at night while he is sleeping. He reports that he is a very restless sleeper. He reports on average his pain is 4 out of 10 on a 0-to-10 scale. He has a history of Crohn's disease which is led to a secondary left medial calf ulcer. He's been dealing with this ulcer for many years and is a mostly healed scar tissue without any open when wounds. He is complaining of some neuropathic pain that begins at the ulcer site traveling down to the arch of his left foot. Reports that he is taking Humira 40 mg every 10 days and that seemed to help with most of his issues with the ulcer. Past Medical History Past Medical History: Diabetes Mellitus, Deep Vein Thrombosis (DVT), Eye Di sorder, GERD/Reflux, Hyperlipidemia, Hyperlipidemia, Hypertension, Myocardial Infarction (MT), Renal Disease, Skin Disorder Additional Past Medical History / Comment(s): Crohn's; Episcleritis L Eye; Pyoderma gangrenosum L Leg-healed,elevated triglyerides,heart palpitations,DVT left leg knee area 2016 Last Myocardial Infarction Date:: 2009 History of Any Multi-Drug Resistant Organisms: None Reported Past Surgical History: Heart Catheterization With Stent, Orthopedic Surgery Additional Past Surgical History / Comment(s): R Knee miniscus repair, colonoscopy and EGD,heart stent x1 Past Anesthesia/Blood Transfusion Reactions: No Reported Reaction Date of Last Stent Placement:: 2009 Past Psychological History: No Psychological Hx Reported Additional Psychological History / Comment(s): Retired and lives with his . No animal exposures. No International travel. Stopped smoking several years ago and does not have significant alcohol or recreational drug use Smoking Status: Former smoker Past Alcohol Use History: Occasional Additional Past Alcohol Use History / Comment(s): quit smoking 2009,smoked approx 25 yrs <1ppd Past Drug Use History: None Reported - Past Family History Mother Family Medical History: Hypertension Additional Family Medical History / Comment(s): bowel resection r/t polyp Brother(s) History Unknown: Yes Medications and Allergies Home Medications Medication Instructions Recorded Confirmed Type lisinopriL [Zestril] 10 mg PO QAM 02/04/17 12/21/20 History Albuterol Sulfate [Proventil Hfa] 2 puff INHALATION RT-Q6H PRN 03/18/17 12/21/20 History Aspirin 81 mg PO DAILY 04/03/17 12/21/20 Rx Adalimumab [Humira Pediatric] 40 mg SQ Q7D 04/08/17 12/21/20 History [place]-3 Fatty Acids/Fish Oil [Fish 1 each PO DAILY 04/08/17 12/21/20 History Oil 1,000 mg Capsule] Simvastatin [Zocor] 40 mg PO HS 04/08/17 12/21/20 History Montelukast Sodium [Singulair] 10 mg PO HS 04/14/18 12/21/20 History Pregabalin [Lyrica] 100 mg PO BID 04/28/18 12/21/20 History Baclofen [Lioresal] 20 mg PO HS 06/11/19 12/21/20 History Cyanocobalamin (Vitamin B-12) 1,000 mcg PO DAILY 06/11/19 12/21/20 History [Vitamin B-12] Allopurinol [Zyloprim] 100 mg PO BID 12/21/20 12/21/20 History Insulin Degludec [Tresiba] 10 units SQ HS 12/21/20 12/21/20 History Insulin Lispro [humaLOG Kwikpen] See Protocol SQ ACHS 12/21/20 12/21/20 History Methotrexate/Pf [Rasuvo 25 mg/0.5 25 mg SQ WEEKLY 12/21/20 12/21/20 History ml Autoinj] Allergies Allergy/AdvReac Type Severity Reaction Status Date / [facility] All[facility] Rash/Hives/ Verified 12/21/20 14:31 Swelling Physical Exam REVIEW OF ORGAN SYSTEMS: CONSTITUTIONAL: No fevers or chills. No recent weight loss. EYES: denies troubles with vision. HEENT: No difficulties with hearing. No nosebleeds. No difficulty swallowing. RESPIRATORY: Denies any troubles with breathing or dyspnea on exertion. CARDIOVASCULAR: Denies any chest pain, palpitations, or recent heart attacks. GASTROINTESTINAL: Denies fatty food intolerance. Has change in bowel habits and gas bloat. GENITOURINARY: Denies any blood in urine. Has increased urinary frequency. NEUROLOGICAL: + numbness and tingling along the distal extremities. No seizure disorders or headaches. MUSCULOSKELETAL: Has back pain. SKIN: Well-healed ulcer medial aspect of the left lower extremity. PSYCHIATRIC: Denies current depression or suicidal thoughts. ENDOCRINE: Denies current thyroid disorders. Denies any blood sugar glucose intolerance. HEME/LYMPHATIC: Denies any lumps and bumps around the neck. History of deep venous thrombosis. ALLERGY/IMMUNOLOGY: No immunoglobulin therapy. No immune deficiencies; Crohn's disease. BREAST: Denies current breast lumps, pain or nipple discharge. Physical Examinations : Constitutiona : Cooperative , not in acute distress . HEENT : nech : supple , no Lymphadenopathy , normal thyroid size . : eyes no ptosis , no icterus, no photophobia . : ENT normal of hearing , normal oropharynx , no Thrush . Respiratory : Chest clear to auscultations Bilaterally , no wheezing , no Rhonchi . Cardiovascula : regular rate and rhythem , S1 , S2 , no S3 , no S4. Gastrointestina : abdomen soft no tenderness , bowel sounds , no organomegally . Genitourinary : Defferred . neurologic : Cranial nerve II to XII intact , no focal neurological deffecit . psychatric : alert , oriented X 3 , appropriate affect , intact judgment and insight . Lymphatic : no Lymphadenopathy . musculoskeltal : Cervical Spine motor stregnth in the deltoid and biceps, normal right side , normal Left side motor stregnth biceps and the wrist extensors normal right side ,normal left side . motor stregnth in the triceps muscle . normal Right side , normal Left side deep tendon reflexes= normal at the biceps , normal at Brachioradialis , normal at triceps. cervical facet loading test: Positive Bilaterally Spurling test= positive bilaterally. Neck distraction test= positive bilaterally. Angus sign= negative. Lumber spine moter stegnth lower extremities ,thigh and legs 5/5 Right side , 5/5 Left side deep tendon reflexes : normal Knee Jerk , normal ankle Jerk lumber facet Loading Test= positive R ight , positive Left Range of motion of the lumbar spine Flexion 30 degrees, extension 10 degrees strait leg raising test , positive at 30 degree Fabere test= positive Right , and positive left . Sever tenderness over the Sacroiliac joint on the Right , and Left sides Gaenslen test= positive bilaterally. Seated flexion test= positive bilaterally. Assessment and Plan Assessment: Assessment and plan Assessment: Cervical spondylosis with facet arthropathy without myelopathy Crohn's disease Plan: Patient could benefit from diagnostic medial branch block bilateral C4 5 and C5 6. If he has good success with the diagnostic and confirmatory medial branch block move forward with a cervical RFA. Consider popliteal nerve block, left, in the future Dr. Cat was available by phone for consultation during his visit. I have spent 50 minutes on patient care today. The time was used to review the medical records including relevant urine studies and Prescription history (MAPs), review of the available imaging, evaluation and examination of the patient, coordination of care with the medical staff and if applicable referring physicians, as well as creation of the medical record. - PQRS measures = - Patient's medications are documented in the chart. -Tobacco use is negative -Patient's has not received pneumococcal vaccine. -Advanced care planning discussed, patient not eligible. -Opiate contract signed. -Pain positive and follow-up visit/procedure is scheduled. -Patient's blood pressure measured 161/84, and documented in the record ,and patient will follow up with the primary care. -Patient was not identified as an unhealthy alcohol user Time with Patient: Greater than 30 PQRS Measure Charge Sheet PQRS Narrative: Smoking Status Former smoker Home Medications: Ambulatory Orders lisinopriL [Zestril] 10 mg PO QAM 02/04/17 Albuterol Sulfate [Proventil Hfa] 2 puff INHALATION RT-Q6H PRN 03/18/17 Aspirin 81 mg PO DAILY 04/03/17 Adalimumab [Humira Pediatric] 40 mg SQ Q7D 04/08/17 [place]-3 Fatty Acids/Fish Oil [Fish Oil 1,000 mg Capsule] 1 each PO DAILY 04/08/17 Simvastatin [Zocor] 40 mg PO HS 04/08/17 Montelukast Sodium [Singulair] 10 mg PO HS 04/14/18 Pregabalin [Lyrica] 100 mg PO BID 04/28/18 Baclofen [Lioresal] 20 mg PO HS 06/11/19 Cyanocobalamin (Vitamin B-12) [Vitamin B-12] 1,000 mcg PO DAILY 06/11/19 Allopurinol [Zyloprim] 100 mg PO BID 12/21/20 Insulin Degludec [Tresiba] 10 units SQ HS 12/21/20 Insulin Lispro [humaLOG Kwikpen] See Protocol SQ ACHS 12/21/20 Methotrexate/Pf [Rasuvo 25 mg/0.5 ml Autoinj] 25 mg SQ WEEKLY 12/21/20
[2021-09-26 13:26] VITALS: BP 161/84; PULSE 67; RESP 18; TEMP 97.6
== END ==
LOC: PNWHC3 09:59
PROVIDERS: ATTEND Student in an Organized Health Care Education/Training Program
DX: M47.812 Spondylosis without myelopathy or radiculopathy, cervical region (principal); K50.90 Crohn's disease, unspecified, without complications; E11.9 Type 2 diabetes mellitus without complications; E78.5 Hyperlipidemia, unspecified; I10 Essential (primary) hypertension; I25.2 Old myocardial infarction; Z87.891 Personal history of nicotine dependence; Z86.718 Personal history of other venous thrombosis and embolism; Z79.82 Long term (current) use of aspirin; Z79.4 Long term (current) use of insulin; Z79.899 Other long term (current) drug therapy; Z88.5 Allergy status to narcotic agent
CPT/HCPCS: 99211

== ENCOUNTER 2021-11-08 08:15 | Day surgery (SDC) | payer MEDICARE, OTHER ==
[2021-11-05 13:59] VITALS: BMI 27.1
[2021-11-08 08:59] VITALS: TEMP 98.8
[2021-11-08] MEDS ORDERED: LACTATED RINGERS 1,000 ML IV ONE (08:59)
[2021-11-08] MEDS ORDERED: LIDOCAINE 1% (10MG/ML) FOR IV START INTRADERMA ONE (08:59)
[2021-11-08 09:07] LABS: Glucose,Whole Blood 91 mg/dL (75-99)
[2021-11-08] MEDS ORDERED: ROPIVACAINE 5MG/ML 20ML VIAL ONE (09:17)
[2021-11-08] MEDS ORDERED: MIDAZOLAM 2 MG/2 ML VIAL ONE (09:17)
[2021-11-08] MEDS ORDERED: DEXAMETHASONE SOD PHOSPHATE 10 MG/ML 1 ML VIAL ONE (09:17)
[2021-11-08] MEDS ORDERED: fentaNYL (PF) 50 MCG/ML 2 ML AMP ONE (09:17)
[2021-11-08] MEDS ORDERED: LACTATED RINGERS 1,000 ML IV SCH (09:45)
--- NOTE | 2021-11-08 09:46 | P.PCN ---
Date of Procedure: 11/08/21 Description of Procedure: PREOPERATIVE DIAGNOSIS: Cervical Facet syndrome /cervical spondylosis. POSTOPERATIVE DIAGNOSIS: Cervical Facet syndrome /cervical spondylosis. PROCEDURES: Bilateral cervical C4-C5, and C5-C6 medial branch injections, with fluoroscopic guidance, SURGEON: Angelica Callahan ANESTHESIA: 4ml of Local lidocaine 1% , and IV sedation with : versed 2mg, and Fentanyl 100 mcg EBL: None Specimen removed: None Fluoroscopic image: Saved to electronic medical records. PROCEDURE INDICATION: Patient had chronic neck pain. He tried conservative therapy with minimal benefits. Came here for intervention procedure. PROCEDURE DESCRIPTION: The patient was seen and identified in the preoperative area. Risks, benefits, complications, and alternatives were discussed with the patient. The patient agreed to pursue with the procedure and signed the consent. IV was started and vital signs were stable. Patient was taken to the procedure room and time out was completed. The patient was placed in the prone position on the procedure table and cervical area was prepped with ChloraPrep 1 and draped in the usual sterile fashion. Critical pause was taken. Vital signs were closely monitored during the procedure. Using AP fluoroscopy, right side the waists of lateral margins of C4, C5, and C6 were identified and localized with 1% lidocaine. We used 22-gauge 3-1/2 inch spinal needles 3 used for the procedure. Using the posterior approach, spinal cannulas were guided by anterior posterior fluoroscopy to the waists of the lateral masses of C4, C5, and C6. Needle tip position was confirmed at the centroid of the trapezoids of C4, C5, and C6 with lateral fluoroscopy. After negative aspiration of CSF and blood and with no paresthesias 0.5 mL of block solution injected at each site. Block solution contained 10 MG of dexamethasone and 4 mL of preservative-free ropivacaine 0.5%. [place] were removed intact. Entire procedure repeated on the left side . [place] removed intact. Skin was cleansed and bandages were applied. COMPLICATIONS: None. DISPOSITION / PLANS: The patient was placed in a supine position and transferred to the recovery area in a stable condition for observation and was discharged from the recovery room after meeting discharge criteria. Home discharge instructions given to the patient by the staff. The patient was reexamined prior to discharge. The patient will schedule a right-sided side cervical radiofrequency ablation in 2-4 weeks if the patient had good pain relief with second cervical medical branch injection.
[2021-11-08] MEDS ORDERED: IV FLUID CONTINUATION 775 ML IV ONE (09:47)
[2021-11-08 09:54] VITALS: RESP 16
[2021-11-08 10:07] VITALS: BP 128/57; PULSE 62
--- NOTE | 2021-11-08 10:11 | FL ---
Fluoroscopy History: Bilateral facet joint block moose cerv facet blk 18sec fluoro time, 4 images to PACS
[2021-11-08 10:21] LABS: Glucose,Whole Blood 86 mg/dL (75-99)
== END 2021-11-08 10:28 | disposition home or self-care (01) ==
LOC: ORPAIN 08:15
DX: M51.36 Other intervertebral disc degeneration, lumbar region (principal); M54.2 Cervicalgia
CPT/HCPCS: 64490; 64491; J2250; J1100; J3010; J2795; 99152

== ENCOUNTER → 2021-11-12 | Outpatient (CLI) | payer MEDICARE, OTHER ==
[2021-11-12 19:10] LABS: HCT 43.4 % (39.6-50.0); HGB 13.7 g/dL (13.0-17.0); MCH 31.9 pg (27.0-32.0); MCHC 31.6 g/dL (32.0-37.0); MCV 100.9 fL (80.0-97.0); Mean Platelet Volume 10.5 fL (9.5-12.2); Platelet Count 163 X 10*3/uL (140-440); RDW 13.7 % (11.5-14.5); WBC 7.56 X 10*3/uL (4.50-10.00)
[2021-11-12 21:15] LABS: Anion Gap 13.2 mmol/L (10.00-18.00); BUN/Creat Ratio 17.71 Ratio (12.00-20.00); Blood Urea Nitrogen 20.9 mg/dL (9.0-27.0); Calcium 9.4 mg/dL (8.7-10.3); Carbon Dioxide 24.3 mmol/L (20.0-27.5); Non-African American GFR(CKD) 62.2 (60.0-200.0); Potassium 4.5 mmol/L (3.5-5.5)
[2021-11-12 21:16] LABS: Prostate Specific Antigen 1.4 ng/mL (0.00-6.50); Uric Acid 5.5 mg/dL (3.7-8.7)
== END | disposition home or self-care (01) ==
LOC: LABWHC1 12:20
PROVIDERS: ATTEND Family Medicine
DX: I10 Essential (primary) hypertension (principal); E11.9 Type 2 diabetes mellitus without complications; M10.9 Gout, unspecified; N40.0 Benign prostatic hyperplasia without lower urinary tract symptoms
CPT/HCPCS: 36415; 80048; 83036; 84153; 84450; 84460; 84550; 85027

== ENCOUNTER → 2021-12-03 | Outpatient (CLI) | payer MEDICARE, OTHER ==
[2021-12-03 12:15] VITALS: BP 133/70; PULSE 71; RESP 18
--- NOTE | 2021-12-03 12:43 | P.PN ---
Subjective Progress Note Date: 12/03/21 Principal diagnosis: A 71 yr old male with at side with a history of severe and chronic neck pain secondary to degenerative disc diseases and spondylosis with facet arthropathy presents today for neck pain s/p procedure. Pt underwent a bilateral medial branch block on 11/08/2021 but states the procedure afforded him no pain relief. Pain level is still at 5/ 10 in intensity, dull/ achy in the right side of the upper parts of his neck and sharp/ shooting towards the right shoulder and right wrist. Pain is provoked by turning head, forward flexion and standing for prolonged periods of time. Pain is alleviated with medications, topicals, home based stretching routine and rest. Interventional pain procedures completed include bilateral Medial branch blocks Patient denies any side effects of the medication(s), denies excessive drowsiness or sleepiness, denies suicidal ideation and reports that the current pain medication is helping to control the pain and improve activities of daily living. Patient denies any motor or sensory deficits. Patient denies any fever or night sweats, denies any change in the bowel movements or urination. Physical Examination: -Constitutional: Cooperative. Not in acute distress . -HEENT: Neck is supple. No lymphadenopathy. No thyromegaly. Normal thyroid size. Eyes: No ptosis , no icterus, no photophobia. ENT: No auditory deficits. Normal oropharynx. No Thrush. - Respiratory: Chest clear to auscultations bilaterally. No wheezing. No rhonchi. - Cardiovascular: Regular rate and rhythm. S1 / S2 , no S3 , no S4. - Gastrointestinal: Abdomen soft no tenderness. Bowel sounds positive in all four quadrants. No organomegaly. - Genitourinary: Deferred. - Neurologic: Cranial nerve II to XII intact. No focal neurological deficits. - Psychatric: Alert & oriented x 3. Matching mood & appropriate affect. Judgment and insight intact. - Lymphatic: No Lymphadenopathy. - Musculoskeletal: Cervical spine: Muscle bulk/ tone/ strength in the bilateral upper extremities normal. Mild C5 vertebral body tenderness to palpation Spurling test positive Distraction test positive Facet loading test cervical area positive over C5-C6 bilaterally Lumbar spine: Motor bulk/ tone/ strength lower extremities , thigh and legs : 5/5 Deep tendon reflexes : Normal Knee Jerk. Normal Ankle Jerk . Lumbar Facet Loading Test positive Straight Leg Raise: positive at 30 degree right side/ left side Tabby test: positive right side / left side Range of motion: Range of motion in flexion of the lumbar spine <60 degrees Range of motion: Extension of the lumbar spine <20 degrees Severe tenderness over the Sacroiliac joint: right side / left side Assessment and plan: Chronic neck pain secondary to degenerative disc disease , spondylosis with facet arthropathy without myelopathy Recommendation of KRIS of C5-C6 Risks/ benefits discussed with pt and at side, whom verbalized understanding Unsure if they want to proceed at this time No relief with medial branch block, though pt is disinterested in a follow up medial branch block at this time All patient questions answered MAPS reviewed and it was appropriate. I have spent 31 minutes on patient care today. Dr Cat was available by phone for the evaluation of this patient. The time was used to review the medical records including relevant urine studies and Prescription history (MAPs), review of the available imaging, evaluation and examination of the patient, coordination of care with the medical staff and if applicable referring physicians, as well as creation of the medical record Objective - Vital Signs Vital signs: Vital Signs Temp Pulse 71 12/03/21 12:08 Resp 18 12/03/21 12:08 BP 133/70 12/03/21 12:08 Pulse Ox 96 12/03/21 12:08 PQRS Measure Charge Sheet Mode of Arrival: Ambulatory - Pain Location Neck Non-Pharmacological Interventions: Heat, Inactivity, Massage, Physical Therapy, Position/Reposition, Stretching Pharmacological Interventions: PRN Medication PQRS Narrative: Smoking Status Former smoker Blood Pressure 133/70 Pain Intensity [Neck] 3 Scale Used Numeric (1 - 10) Hx Alcohol Use (MH) No Home Medications: Ambulatory Orders lisinopriL [Zestril] 10 mg PO HS 02/04/17 Aspirin 81 mg PO DAILY 04/03/17 Adalimumab [Humira Pediatric] 40 mg SQ Q10D 04/08/17 [place]-3 Fatty Acids/Fish Oil [Fish Oil 1,000 mg Capsule] 1,200 mg PO DAILY 04/08/17 Simvastatin [Zocor] 40 mg PO HS 04/08/17 Montelukast Sodium [Singulair] 10 mg PO HS 04/14/18 Pregabalin [Lyrica] 100 mg PO BID 04/28/18 Baclofen [Lioresal] 20 mg PO HS 06/11/19 Cyanocobalamin (Vitamin B-12) [Vitamin B-12] 5,000 mcg PO SA 06/11/19 Allopurinol [Zyloprim] 100 mg PO DAILY 12/21/20 Methotrexate/Pf [Rasuvo 25 mg/0.5 ml Autoinj] 7.5 mg SQ Q10D 12/21/20 Albuterol Sulfate [Proair Hfa] 2 puff INHALATION Q4HR PRN 09/26/21 Cetirizine HCl 10 mg PO DAILY 09/26/21 Cholecalciferol [Vitamin D3 (125 Mcg = 5000 Iu)] 125 mg PO Q72H 09/26/21 Folic Acid 400 mcg PO SA 09/26/21 Melatonin 10 mg PO HS 09/26/21 Turmeric Root Extract [Turmeric] 1 tab PO Q2D 09/26/21 Ubidecarenone [Co Q-10] 200 mg PO Q2D 09/26/21 cycloSPORINE [Restasis] 1 drop BOTH EYES DAILY 09/26/21 Ascorbic Acid [Vitamin C] 500 mg PO DAILY 11/05/21 DULoxetine HCL [Cymbalta] 30 mg PO BID 11/05/21 Magnesium 400 mg PO HS 11/05/21 Insulin Glargine,Hum.rec.anlog [Nora Gamble] 16 units SQ HS 11/29/21
== END ==
LOC: PNWHC3 11:13
PROVIDERS: ATTEND Physician Assistant Medical
DX: M50.30 Other cervical disc degeneration, unspecified cervical region (principal); M47.812 Spondylosis without myelopathy or radiculopathy, cervical region; G89.29 Other chronic pain; Z87.891 Personal history of nicotine dependence; Z88.5 Allergy status to narcotic agent
CPT/HCPCS: 99211

== ENCOUNTER 2021-12-27 08:33 | Day surgery (SDC) | payer MEDICARE, OTHER ==
[2021-12-26 12:50] VITALS: BMI 27.3
[~2021-12-27 08:33] MED LIST changes: -LIDOCAINE 1% 20 ML VIAL (10MG/ML) FOR IV START INTRADERMA PRN
[2021-12-27 08:51] VITALS: RESP 16; TEMP 97.5
[2021-12-27 09:10] LABS: Glucose,Whole Blood 102 mg/dL (75-99)
[2021-12-27] MEDS ORDERED: IOPAMIDOL M200 10 ML VIAL ONE (09:15)
[2021-12-27] MEDS ORDERED: DEXAMETHASONE SOD PHOSPHATE 10 MG/ML 1 ML VIAL ONE (09:15)
[2021-12-27] MEDS ORDERED: fentaNYL (PF) 50 MCG/ML 2 ML AMP ONE (09:15)
[2021-12-27] MEDS ORDERED: MIDAZOLAM 2 MG/2 ML VIAL ONE (09:15)
--- NOTE | 2021-12-27 09:31 | P.PCN ---
Date of Procedure: 12/27/21 Procedure(s) Performed: . PROCEDURE 1. Cervical epidural steroid injection under fluoroscopic guidance, C5-6 (fluoroscopy images available in the radiology department ) 2. Cervical epidurogram. PREOPERATIVE DIAGNOSIS: 1- Cervical Degenerative Disc Diseases 2-cervical spondylosis with cervical Facet arthropathy without myelopathy POSTOPERATIVE DIAGNOSIS: : 1- Cervical Degenerative Disc Diseases , 2-cervical spondylosis with cervical Facet arthropathy without myelopathy ANESTHESIA: Local anesthesia with lidocaine 1 % , and moderate sedation, with Versed 1 mg and Fentanyl 50 mcg. EBL 0 PROCEDURE INDICATION: The patient with neck pain and radiculitis unresponsive to conservative treatment consents for procedure. PROCEDURE DESCRIPTION / TECHNIQUE: The patient was seen and identified in the preoperative area. Risks, benefits, complications, including but not limited to infections ,bleeding , allergic reactions to the medications ,and not complete pain releife, and alternatives were discussed with the patient, the patient agreed to proceed with the procedure and signed the consent. Patient was taken to the OR and time out was completed. The patient was placed in the prone position on the procedure table. A pillow was placed under the patients chest to increase the cervical interlaminar space. The cervical area was prepped and draped in the usual sterile fashion. Vital signs were closely monitored during the procedure. Conscious sedation was used during the procedure to decrease patients anxiety. Using anterior-posterior fluoroscopy, the C7-T1 interlaminar space was identified and the skin over this site was marked and then infiltrated with 1% lidocaine subcutaneously. Subsequently, a 20-gauge 3-1/2-inch Tuohy epidural needle was inserted and advanced toward the epidural space by means of the ``hanging-drop technique and guided by AP and lateral fluoroscopy. The correct needle position in the epidural space was verified with the injection of 2 mL of the water soluble contrast dye [id number]-[id number] and observing an excellent epidurogram with the epidural spread of the dye, after negative aspiration for blood and CSF and in the absence of paresthesias. then, mixture containing 10 mg Dexamethasone and 2 ml of preservative-free normal saline injected and a washout of epidurogram was seen. Needle was withdrawn intact, skin was cleansed, and bandages were applied. Complications= none. Disposition= patient was placed in supine position and transferred to the recovery room area in stable condition and there was no evidence of upper or lower extremity motor or sensory deficit after the procedure patient was discharged from recovery room after discharge criteria met and home discharge instructions was given by the staff and patient will follow with the pain clinic in 2-4 weeks
[2021-12-27] MEDS ORDERED: IV FLUID CONTINUATION 1,000 ML IV ONE (09:34)
[2021-12-27 09:44] VITALS: BP 108/72; PULSE 63
--- NOTE | 2021-12-27 10:06 | FL ---
EXAMINATION TYPE: FL guided pain mgmt statistic DATE OF EXAM: 12/27/2021 FLUOROSCOPY Fluoroscopy time of 1 seconds was used during cervical epidural injection. 1 image/s document/s the procedure.
== END 2021-12-27 10:07 | disposition home or self-care (01) ==
LOC: ORPAIN 08:33
PROVIDERS: ATTEND Specialist
DX: M50.10 Cervical disc disorder with radiculopathy, unspecified cervical region (principal); M47.22 Other spondylosis with radiculopathy, cervical region; Z88.8 Allergy status to other drugs, medicaments and biological substances
CPT/HCPCS: 62321; J2250; J1100; J3010; Q9966

== ENCOUNTER 2022-02-05 08:12 | Day surgery (SDC) | payer MEDICARE, OTHER ==
[2022-01-31 16:26] VITALS: BMI 28.0
[~2022-02-05 08:12] MED LIST changes: +LIDOCAINE 1% (10MG/ML) FOR IV START INTRADERMA PRN
[2022-02-05 09:13] VITALS: TEMP 98.1
[2022-02-05 09:17] LABS: Glucose,Whole Blood 96 mg/dL (75-99)
[2022-02-05] MEDS ORDERED: DEXAMETHASONE SOD PHOSPHATE 10 MG/ML 1 ML VIAL ONE (09:41)
[2022-02-05] MEDS ORDERED: MIDAZOLAM 2 MG/2 ML VIAL ONE (09:41)
[2022-02-05] MEDS ORDERED: ROPIVACAINE 5MG/ML 20ML VIAL ONE (09:41)
[2022-02-05] MEDS ORDERED: IOPAMIDOL M200 10 ML VIAL ONE (09:41)
[2022-02-05] MEDS ORDERED: fentaNYL (PF) 50 MCG/ML 2 ML AMP ONE (09:41)
--- NOTE | 2022-02-05 10:01 | P.PCN ---
Date of Procedure: 02/05/22 Procedure(s) Performed: PROCEDURE 1. Cervical epidural steroid injection under fluoroscopic guidance, C5-6 (fluoroscopy images available in the radiology department ) 2. Cervical epidurogram. 3. Trigger point injection right side cervical paraspinal muscles and right trapezius muscle, and left side trapezius muscle and left shoulder blade area (total of 4 trigger point injected) PREOPERATIVE DIAGNOSIS: 1- Cervical Degenerative Disc Diseases 2-cervical spondylosis with cervical Facet arthropathy without myelopathy, 3 myofascial pain syndrome cervical and shoulder area POSTOPERATIVE DIAGNOSIS: : 1- Cervical Degenerative Disc Diseases , 2-cervical spondylosis with cervical Facet arthropathy without myelopathy. 3-/pain syndrome cervical and shoulder area ANESTHESIA: Local anesthesia with lidocaine 1 % , and moderate sedation, with Versed 1 mg and Fentanyl 50 mcg. EBL 0 PROCEDURE INDICATION: The patient with neck pain and radiculitis unresponsive to conservative treatment consents for procedure. PROCEDURE DESCRIPTION / TECHNIQUE: The patient was seen and identified in the preoperative area. Risks, benefits, complications, including but not limited to infections ,bleeding , allergic reactions to the medications ,and not complete pain releife, and alternatives were discussed with the patient, the patient agreed to proceed with the procedure and signed the consent. Patient was taken to the OR and time out was completed. The patient was placed in the prone position on the procedure table. A pillow was placed under the patients chest to increase the cervical interlaminar space. The cervical area was prepped and draped in the usual sterile fashion. Vital signs were closely monitored during the procedure. Conscious sedation was used during the procedure to decrease patients anxiety. Using anterior-posterior fluoroscopy, the C5-6 interlaminar space was identified and the skin over this site was marked and then infiltrated with 1% lidocaine subcutaneously. Subsequently, a 20-gauge 3-1/2-inch Tuohy epidural needle was inserted and advanced toward the epidural space by means of the ``hanging-drop technique and guided by AP and lateral fluoroscopy. The correct needle position in the epidural space was verified with the injection of 2 mL of the water soluble contrast dye Isovue-200 and observing an excellent epidurogram with the epidural spread of the dye, after negative aspiration for blood and CSF and in the absence of paresthesias. then, mixture containing 15 mg Dexamethasone and 2 ml of preservative-free normal saline injected and a washout of epidurogram was seen. Needle was removed intact. Then after that the trigger point injection done sterile technique,using 25- gauge needle, each of the trigger point that is identified in the preop holding area to on the right side trapezius and cervical paraspinal muscle, and 2 on the left side trapezius and left shoulder area, each one of them injected with ropivacaine 0.5% 2 mL injected at each trigger point after negative aspiration, patient tolerated the procedure well without any complications. Complications= none. Disposition= patient was placed in supine position and transferred to the recovery room area in stable condition and there was no evidence of upper or lower extremity motor or sensory deficit after the procedure patient was discharged from recovery room after discharge criteria met and home discharge instructions was given by the staff and patient will follow with the pain clinic in 2-4 weeks
[2022-02-05] MEDS ORDERED: IV FLUID CONTINUATION 600 ML IV ONE (10:08)
[2022-02-05 10:14] VITALS: PULSE 70; RESP 20
--- NOTE | 2022-02-05 10:19 | FL ---
EXAMINATION TYPE: FL guided pain mgmt statistic DATE OF EXAM: 02/05/2022 CLINICAL HISTORY: Pain management TECHNIQUE: Fluoroscopic guided cervical epidural injection FINDINGS: Fluoroscopic guidance was provided during the procedure. A total of 2 seconds of fluorosco pic time was utilized during the procedure and 1 spot image was acquired. IMPRESSION: As Above.
[2022-02-05 10:29] VITALS: BP 130/71
== END 2022-02-05 10:38 | disposition home or self-care (01) ==
LOC: ORPAIN 08:12
PROVIDERS: ATTEND Specialist
DX: M79.18 Myalgia, other site (principal); M50.30 Other cervical disc degeneration, unspecified cervical region; M47.812 Spondylosis without myelopathy or radiculopathy, cervical region
CPT/HCPCS: 20553; 62321; J2250; J1100; J3010; Q9966; J2795; 99152

== ENCOUNTER → 2022-02-25 | Outpatient (CLI) | payer MEDICARE, OTHER ==
[2022-02-25 10:09] VITALS: BP 155/83; PULSE 60; RESP 18
--- NOTE | 2022-02-25 10:11 | P.PN ---
Subjective Progress Note Date: 02/25/22 Principal diagnosis: A 71 yr old male with a history of severe and chronic neck pain secondary to cervical degenerative disc diseases and spondylosis with facet arthropathy presents today for evaluation. Patient underwent a KRIS C5-C6 with bilateral trigger point injections of the thoracic spine where he experienced 80% pain relief for one week and then 50% pain relief thereafter. Pain level is currently at 1 out of 10 in intensity, sharp, shooting in the lower aspects of his cervical spine towards his elbows and fingers bilaterally. Pain escalates as high as 8 out of 10 in intensity with extension, lateral flexion and lifting. Pain is alleviated with medications, injections, heat, physical therapy in October 2021, use of a soft c-collar, massage therapy integrative the physical therapy and rest. Interventional pain procedures completed include KRIS C5-C6 Patient is currently on Tramadol from Dr Valenzuela Patient denies any side effects of the medication(s), denies excessive drowsiness or sleepiness, denies suicidal ideation and reports that the current pain medication is helping to control the pain and improve activities of daily living. Patient denies any motor or sensory deficits. Patient denies any fever or night sweats, denies any change in the bowel movements or urination. Physical Examination: -Constitutional: Cooperative. Not in acute distress . -HEENT: Neck is supple. No lymphadenopathy. No thyromegaly. Normal thyroid size. Eyes: No ptosis , no icterus, no photophobia. ENT: No auditory deficits. Normal oropharynx. No Thrush. - Respiratory: Chest clear to auscultations bilaterally. No wheezing. No rhonchi. - Cardiovascular: Regular rate and rhythm. S1 / S2 , no S3 , no S4. - Gastrointestinal: Abdomen soft no tenderness. Bowel sounds positive in all four quadrants. No organomegaly. - Genitourinary: Deferred. - Neurologic: Cranial nerve II to XII intact. No focal neurological deficits. - Psychatric: Alert & oriented x 3. Matching mood & appropriate affect. Judgment and insight intact. - Lymphatic: No Lymphadenopathy. - Musculoskeletal: Cervical spine: Muscle bulk/ tone/ strength in the bilateral upper extremities normal. Spurling test positive Facet loading test cervical area positive over C6-C7, C7-T1 with jump reflex Lumbar spine: Motor bulk/ tone/ strength lower extremities , thigh and legs : 5/5 Deep tendon reflexes : Normal Knee Jerk. Normal Ankle Jerk . Vertebral body tenderness to palpation over Lumbar Facet Loading Test positive Straight Leg Raise: positive at 30 degrees right side/ left side Gaenslen's Test positive Sacral spine : Severe tenderness over the Sacroiliac joint: right side / left side Range of motion: Flexion of the lumbar spine <60 degrees Range of motion: Extension of the lumbar spine <20 degrees Gaenslen's Test positive Tabby test: positive right side / left side Assessment and plan: Chronic neck pain secondary to cervical degenerative disc disease , spondylosis with facet arthropathy without myelopathy Recommendation of facet blocks of the medial branches C6-C7, C7-T1. May need a series of injections, up to RFA, for optimal pain relief. Risks, benefits of procedure discussed and patient verbalized understanding. Denies anticoagulant use. Admits to medical history of diabetes. Protocol for discontinuation/ continuation of medications moira procedure discussed. All patient questions answered MAPS reviewed and it was appropriate. I have spent 31 minutes on patient care today. Dr Cat was available by phone for the evaluation of this patient. The time was used to review the medical records including relevant urine studies and Prescription history (MAPs), review of the available imaging, evaluation and examination of the patient, coordination of care with the medical staff and if applicable referring physicians, as well as creation of the medical record PQRS Measure Charge Sheet Mode of Arrival: Ambulatory - Pain Location Bilateral Shoulder Non-Pharmacological Interventions: Heat, Home Exercise, Inactivity, Massage, Physical Therapy, Position/Reposition, Stretching Pharmacological Interventions: Block, Epidural, PRN Medication PQRS Narrative: Smoking Status Former smoker Blood Pressure 155/83 Pain Intensity [Bilateral 1 Shoulder] Scale Used Numeric (1 - 10) Hx Alcohol Use (MH) No Home Medications: Ambulatory Orders lisinopriL [Zestril] 10 mg PO HS 02/04/17 Aspirin 81 mg PO DAILY 04/03/17 Adalimumab [Humira Pediatric] 40 mg SQ Q10D 04/08/17 [place]-3 Fatty Acids/Fish Oil [Fish Oil 1,000 mg Capsule] 1,200 mg PO DAILY 04/08/17 Simvastatin [Zocor] 40 mg PO HS 04/08/17 Montelukast Sodium [Singulair] 10 mg PO HS 04/14/18 Baclofen [Lioresal] 20 mg PO HS 06/11/19 Cyanocobalamin (Vitamin B-12) [Vitamin B-12] 5,000 mcg PO Q14D 06/11/19 Allopurinol [Zyloprim] 100 mg PO DAILY 12/21/20 Methotrexate/Pf [Rasuvo 25 mg/0.5 ml Autoinj] 7.5 mg SQ Q10D 12/21/20 Albuterol Sulfate [Proair Hfa] 2 puff INHALATION Q4HR PRN 09/26/21 Cetirizine HCl 10 mg PO DAILY 09/26/21 Cholecalciferol [Vitamin D3 (125 Mcg = 5000 Iu)] 125 mg PO Q72H 09/26/21 Folic Acid 400 mcg PO SA 09/26/21 Melatonin 10 mg PO HS 09/26/21 Turmeric Root Extract [Turmeric] 1 tab PO Q2D 09/26/21 Ubidecarenone [Co Q-10] 200 mg PO Q2D 09/26/21 cycloSPORINE [Restasis] 1 drop BOTH EYES DAILY 09/26/21 Ascorbic Acid [Vitamin C] 500 mg PO DAILY 11/05/21 Magnesium 400 mg PO HS 11/05/21 Acetaminophen/Diphenhydramine [Tylenol PM 500-25mg] 2 tab PO HS 12/26/21 Fluticasone Nasal [place] [Flonase Nasal [place]] 1 spray EA NOSTRIL HS 12/26/21 Insulin Degludec [Tresiba] 16 units SQ HS 12/26/21
== END ==
LOC: PNWHC3 09:15
PROVIDERS: ATTEND Specialist
DX: M50.30 Other cervical disc degeneration, unspecified cervical region (principal); M47.812 Spondylosis without myelopathy or radiculopathy, cervical region; G89.29 Other chronic pain; Z79.891 Long term (current) use of opiate analgesic; Z88.8 Allergy status to other drugs, medicaments and biological substances
CPT/HCPCS: 99211

== ENCOUNTER 2022-04-26 09:57 | Day surgery (SDC) | payer MEDICARE, OTHER ==
[2022-04-24 15:51] VITALS: BMI 27.1
[2022-04-26 10:16] VITALS: RESP 16; TEMP 97
[2022-04-26] MEDS ORDERED: LACTATED RINGERS 1,000 ML IV ONE (10:19)
[2022-04-26] MEDS ORDERED: fentaNYL (PF) 50 MCG/ML 2 ML AMP ONE (10:43)
[2022-04-26] MEDS ORDERED: ROPIVACAINE 5MG/ML 20ML VIAL ONE (10:43)
[2022-04-26] MEDS ORDERED: MIDAZOLAM 2 MG/2 ML VIAL ONE (10:43)
[2022-04-26] MEDS ORDERED: methylPREDNISolone ACETATE 40 MG/ML 1 ML VIAL ONE (10:43)
[2022-04-26] MEDS ORDERED: IV FLUID CONTINUATION 1,000 ML IV ONE (11:11)
--- NOTE | 2022-04-26 11:11 | P.PCN ---
Date of Procedure: 04/26/22 Procedure(s) Performed: PREOPERATIVE DIAGNOSIS: 1-Cervical Spondylosis with Facet Arthropathy.without myelopathy. 2-cervical degenerative disc disease POSTOPERATIVE DIAGNOSIS: Same as preoperative diagnosis. PROCEDURES: Diagnostic bilateral C3, C4 , C5 medial branch blocks, with flu oroscopic guidance (fluoroscopy images available in radiology department ) ( to target the facet joint at bilateral C3-4 , C4- 5 ) ANESTHESIA: Monitored anesthesia care as per anesthesia department ,moderate sedation with Versed 2 mg , and fentanyl 50 micrograms EBL: Minimal PROCEDURE INDICATION: The patient with neck pain secondary to cervical arthr opathy unresponsive to more conservative treatments. PROCEDURE DESCRIPTION / TECHNIQUE: The patient was seen and identified in the preoperative area. Risks, benefits, complications, and alternatives were discussed with the patient, the patient agreed to proceed with the procedure and signed the consent. IV was started. Vital signs remained stable throughout the procedure. Patient was taken to the OR and time out was completed. The patient was placed in the prone position on the procedure table. A pillow was placed under the patients chest to increase the cervical interlaminar space. The cervical area was prepped and draped in the usual sterile fashion. Critical pause was taken. Vital signs were closely monitored during the procedure. Conscious sedation was used during the procedure to decrease patients anxiety. Using cross-table lateral fluoroscopy, the centroid of the trapezoid of right C3, C4 , C5 was identified, marked, and localized with 1% lidocaine 1 ml at each level for skin and Sub Q infiltrations . Subsequently, a 25 G 3 spinal needle was advanced guided by fluoroscopy to the centroid of the trapezoid of Right C3, C4 , C5 . [place] tip position was confirmed at the centroid of the trapezoids of Right C3 , C4 , C5 with anteroposterior fluoroscopy. Subsequently, 1.5 ml of preservative-free Ropivacaine 0.5% mixed with Depo- Medrol 20 mg and half ml of the mixture was injected after negative aspiration for blood and CSF. [place] was then removed intact the same procedure was repeated at the left C3 , C4 , C5 , levels. COMPLICATIONS: No acute complications. COMMENTS: The patient was scheduled to have diagnostic medial branch block Bilateral at C6 -7 , C7-T1 ,but upon reviewing the MRI reports and also physical examination showed, that most of the pain is coming from the facetogenic component at C3, C4 and C5, patient had extensive cervical spondylosis with cervical facet arthropathy throughout the whole cervical spine, but the pain distribution direct that most of the pain is coming from C3, C4 and C5, and because we are limited to do a block on 3 level is only as per insurance guidelines, I discussed with the patient the option of changing the procedure to the new levels and hopefully this will help him more DISPOSITION / PLANS: The patient was placed in a supine position and transferred to the recovery area in a stable condition for observation and was discharged from the recovery room after meeting discharge criteria. Home discharge instructions given to the patient by the staff. The patient was reexamined prior to discharge. The patient will schedule a follow up in the clinic in 2-4 weeks.
[2022-04-26 11:31] VITALS: BP 114/72; PULSE 61
--- NOTE | 2022-04-26 12:00 | FL ---
EXAMINATION TYPE: FL guided pain mgmt statistic DATE OF EXAM: 04/26/2022 HISTORY: Billy Cerv Facet 20sec fluoro time, 4 images to PACS
== END 2022-04-26 11:51 | disposition home or self-care (01) ==
LOC: ORPAIN 09:57
PROVIDERS: ATTEND Specialist
DX: M47.812 Spondylosis without myelopathy or radiculopathy, cervical region (principal); M50.30 Other cervical disc degeneration, unspecified cervical region; Z88.8 Allergy status to other drugs, medicaments and biological substances; E11.69 Type 2 diabetes mellitus with other specified complication; E78.5 Hyperlipidemia, unspecified; I10 Essential (primary) hypertension; I25.2 Old myocardial infarction; K50.90 Crohn's disease, unspecified, without complications; Z79.899 Other long term (current) drug therapy; Z79.4 Long term (current) use of insulin; Z79.51 Long term (current) use of inhaled steroids; Z79.82 Long term (current) use of aspirin; Z87.891 Personal history of nicotine dependence
CPT/HCPCS: 64490; 64491; J2250; J1030; J3010; J2795

== ENCOUNTER → 2022-05-23 | Outpatient (CLI) | payer MEDICARE, OTHER ==
[2022-05-23 08:23] VITALS: BP 132/79; PULSE 61; RESP 18; TEMP 98.2
--- NOTE | 2022-05-23 09:05 | P.PAINPG ---
PQRS Measure Charge Sheet Comment: A 72 yr old male with a history of severe and chronic neck pain secondary to cervical degenerative disc diseases and spondylosis with facet arthropathy presents today for evaluation s/p BL MBB C3-C4, C4-C5 #1. Pt states he experienced 0% pain relief s/p procedure. Pain level is currently at 6/10 in intensity, constant, sharp/ shooting towards the L shoulder. Pain is provoked by hyperextension and rotation. Pain is alleviated with medications, injections, heat, PT in March 2021, home exercise regimen, massage therapy integrated with PT, repositioning and rest. Interventional pain procedures completed include KRIS C7-T1, MBB C3-C4/C4-C5 x 1. MBB C4-C5/ C5-C6 x 1. Patient is currently on Tramadol Baclofen. Patient denies any side effects of the medication(s), denies excessive drowsiness or sleepiness, denies suicidal ideation and reports that the current pain medication is helping to control the pain and improve activities of daily living. Patient denies any motor or sensory deficits. Patient denies any fever or night sweats, denies any change in the bowel movements or urination. Physical Examination: -Constitutional: Cooperative. Not in acute distress . - Neurologic: Cranial nerve II to XII intact. No focal neurological deficits. - Psychatric: Alert & oriented x 3. Matching mood & appropriate affect. Judgment and insight intact. - Musculoskeletal: Cervical spine: Muscle bulk/ tone/ strength in the bilateral upper extremities normal Vertebral body tenderness to palpation over Spurling test positive Distraction test positive Facet loading test positive Thoracic spine Muscle bulk / tone/ strength in the bilateral paraspinal muscles normal Vertebral body tender to palpation over Facet loading test positive Lumbar spine: Motor bulk/ tone/ strength lower extremities , thigh and legs : 5/5 Deep tendon reflexes : Normal Knee Jerk. Normal Ankle Jerk . Vertebral body tenderness to palpation over Lumbar Facet Loading Test positive Straight Leg Raise: positive at 30 degrees right side/ left side Gaenslen's Test positive Sacral spine : Severe tenderness over the Sacroiliac joint: right side / left side Range of motion: Flexion of the lumbar spine <60 degrees Range of motion: Extension of the lumbar spine <20 degrees Gaenslen's Test positive Per's Test positive Tabby test: positive right side / left side Thigh Thrust Test Sacral Thrust Test Assessment and plan: Chronic neck pain secondary to lumbar degenerative disc disease , lumbar spondylosis with facet arthropathy without myelopathy As pt stated finding underlying cause of his pain is "elusive" he will follow up with his referring physician, Dr Ulloa, for further treatment options. Risks, benefits of procedure discussed and pt verbalized understanding. Denies anticoagulant use or medical history of diabetes. All patient questions answered MAPS reviewed and it was appropriate. I have spent less than 30 minutes on patient care today. Dr Cat was available by phone for the evaluation of this patient. The time was used to review the medical records including relevant urine studies and Prescription history (MAPs), review of the available imaging, evaluation and examination of the patient, coordination of care with the medical staff and if applicable referring physicians, as well as creation of the medical record - Pain Location Neck Non-Pharmacological Interventions: Heat, Home Exercise, Massage, Physical Therapy, Stretching Pharmacological Interventions: Block, Epidural, PRN Medication PQRS Narrative: Smoking Status Former smoker Hx Alcohol Use (MH) No Home Medications: Ambulatory Orders lisinopriL [Zestril] 10 mg PO HS 02/04/17 Aspirin 81 mg PO DAILY 04/03/17 Adalimumab [Humira Pediatric] 40 mg SQ Q10D 04/08/17 [place]-3 Fatty Acids/Fish Oil [Fish Oil 1,000 mg Capsule] 1,200 mg PO DAILY 04/08/17 Simvastatin [Zocor] 40 mg PO HS 04/08/17 Montelukast Sodium [Singulair] 10 mg PO HS 04/14/18 Baclofen [Lioresal] 20 mg PO HS 06/11/19 Cyanocobalamin (Vitamin B-12) [Vitamin B-12] 5,000 mcg PO Q14D 06/11/19 Methotrexate/Pf [Rasuvo 25 mg/0.5 ml Autoinj] 7.5 mg SQ Q10D 12/21/20 allopurinoL [Zyloprim] 100 mg PO HS 12/21/20 Albuterol Sulfate [Proair Hfa] 2 puff INHALATION Q4HR PRN 09/26/21 Cetirizine HCl 10 mg PO DAILY 09/26/21 Cholecalciferol [Vitamin D3 (125 Mcg = 5000 Iu)] 125 mg PO DIRECTED 09/26/21 Folic Acid 400 mcg PO SA 09/26/21 Melatonin [Melatonin ER] 10 mg PO HS 09/26/21 Turmeric Root Extract [Turmeric] 1,000 mg PO Q2D 09/26/21 Ubidecarenone [Co Q-10] 200 mg PO Q2D 09/26/21 cycloSPORINE [Restasis] 1 drop BOTH EYES DAILY 09/26/21 Ascorbic Acid [Vitamin C] 500 mg PO DAILY 11/05/21 Magnesium 400 mg PO HS 11/05/21 Acetaminophen/Diphenhydramine [Tylenol PM 500-25mg] 2 tab PO HS 12/26/21 Fluticasone Nasal [place] [Flonase Nasal [place]] 1 spray EA NOSTRIL HS 12/26/21 Insulin Degludec [Tresiba] 16 units SQ HS 12/26/21 Controlled Substance Measures - Controlled Substance Measures Is patient prescribed a controlled substance at discharge?: No
== END ==
LOC: PNWHC3 07:59
PROVIDERS: ATTEND Specialist
DX: M51.36 Other intervertebral disc degeneration, lumbar region (principal); M47.816 Spondylosis without myelopathy or radiculopathy, lumbar region; M47.812 Spondylosis without myelopathy or radiculopathy, cervical region; G89.29 Other chronic pain; Z87.891 Personal history of nicotine dependence; Z88.8 Allergy status to other drugs, medicaments and biological substances
CPT/HCPCS: 99211

== ENCOUNTER → 2022-06-05 | Outpatient (CLI) | payer MEDICARE, OTHER ==
[2022-06-05 14:26] LABS: Appearance,Urine Clear (Clear); Bilirubin,Urine Negative (Negative); Blood,Urine Negative (Negative); Color,Urine Yellow (Yellow); Ketones,Urine Negative (Negative); Nitrite,Urine Negative (Negative); PH, Urine 5.5 (5.0-8.0); Specific Gravity,Urine 1.007 (1.001-1.030); Urobilinogen,Urine 0.2 (0.2,1.0)
[2022-06-05 15:01] LABS: Basophils # (A) 0.06 X 10*3/uL (0.00-0.10); Basophils % (A) 0.9 %; Eosinophils # (A) 0.25 X 10*3/uL (0.04-0.35); Eosinophils % (A) 3.9 %; HCT 40.1 % (39.6-50.0); HGB 13.1 g/dL (13.0-17.0); Immature Grans, Automated 0.3 %; Lymphocytes % (A) 37.6 %; MCH 32.9 pg (27.0-32.0); MCHC 32.7 g/dL (32.0-37.0); MCV 100.8 fL (80.0-97.0); Mean Platelet Volume 10.2 fL (9.5-12.2); Monocytes # (A) 0.72 X 10*3/uL (0.20-1.00); Monocytes % (A) 11.3 %; NRBC Per 100 WBC 0 /100 WBCS (0.0-0.0); Neutrophils # (A) 2.93 X 10*3/uL (1.80-7.70); Platelet Count 201 X 10*3/uL (140-440); RBC 3.98 X 10*6/uL (4.40-5.60); RDW 13.3 % (11.5-14.5); WBC 6.38 X 10*3/uL (4.50-10.00)
[2022-06-05 15:13] LABS: ALT 24 U/L (10-49); AST 33 U/L (14-35); African American GFR (CKD) 70.1 (60.0-200.0); Albumin 4.5 g/dL (3.8-4.9); Albumin/Globulin Ratio 2.05 (1.60-3.17); Alkaline Phosphatase 64 U/L (41-126); BUN/Creat Ratio 15.33 Ratio (12.00-20.00); Blood Urea Nitrogen 18.4 mg/dL (9.0-27.0); Calcium 9.3 mg/dL (8.7-10.3); Carbon Dioxide 22.5 mmol/L (20.0-27.5); Chloride 104 mmol/L (96-109); Globulin 2.2 g/dL (1.6-3.3); Glucose 88 mg/dL (70-110); LDL Cholesterol,Calculated 79.4 mg/dL (0.0-131.0); Non-African American GFR(CKD) 60.5 (60.0-200.0); Potassium 4.3 mmol/L (3.5-5.5); Sodium 139 mmol/L (135-145); Total Protein 6.7 g/dL (6.2-8.2)
== END | disposition home or self-care (01) ==
LOC: LABWHC1 09:34
PROVIDERS: ATTEND Family Medicine
DX: Z00.01 Encounter for general adult medical examination with abnormal findings (principal); E11.9 Type 2 diabetes mellitus without complications; K50.00 Crohn's disease of small intestine without complications
CPT/HCPCS: 36415; 80053; 80061; 81003; 82043; 82306; 82570; 83036; 84153; 85025

== ENCOUNTER → 2022-11-18 | Outpatient (CLI) | payer MEDICARE, OTHER ==
[2022-11-18 14:50] LABS: Basophils # (A) 0.07 X 10*3/uL (0.00-0.10); Eosinophils # (A) 0.25 X 10*3/uL (0.04-0.35); Eosinophils % (A) 3.4 %; HGB 13.7 g/dL (13.0-17.0); Immature Grans, Automated 0.4 %; Lymphocytes # (A) 2.72 X 10*3/uL (0.90-5.00); Lymphocytes % (A) 37.2 %; MCH 32.2 pg (27.0-32.0); MCHC 32.6 g/dL (32.0-37.0); MCV 98.6 fL (80.0-97.0); Monocytes # (A) 0.74 X 10*3/uL (0.20-1.00); Monocytes % (A) 10.1 %; NRBC Per 100 WBC 0 /100 WBCS (0.0-0.0); Neutrophils % (A) 47.9 %; Platelet Count 197 X 10*3/uL (140-440); RBC 4.26 X 10*6/uL (4.40-5.60); RDW 13.2 % (11.5-14.5); WBC 7.31 X 10*3/uL (4.50-10.00)
[2022-11-18 15:26] LABS: African American GFR (CKD) 58.2 (60.0-200.0); BUN/Creat Ratio 16.43 Ratio (12.00-20.00); Calcium 9.4 mg/dL (8.7-10.3); Chloride 106 mmol/L (96-109); Glucose 104 mg/dL (70-110); Non-African American GFR(CKD) 50.2 (60.0-200.0); Potassium 4.3 mmol/L (3.5-5.5); Sodium 141 mmol/L (135-145); Uric Acid 6.5 mg/dL (3.7-8.7)
[2022-11-18 15:27] LABS: ALT 26 U/L (10-49); AST 31 U/L (14-35); Chol/HDL Ratio 3.61 Ratio; LDL Cholesterol,Calculated 87.4 mg/dL (0.0-131.0)
== END | disposition home or self-care (01) ==
LOC: LABWHC1 09:36
PROVIDERS: ATTEND Family Medicine
DX: I10 Essential (primary) hypertension (principal); E78.5 Hyperlipidemia, unspecified; E11.9 Type 2 diabetes mellitus without complications; K50.00 Crohn's disease of small intestine without complications; M10.9 Gout, unspecified
CPT/HCPCS: 36415; 80048; 80061; 82306; 83036; 84450; 84460; 84550; 85025

== ENCOUNTER → 2022-11-28 | Outpatient (CLI) | payer MEDICARE, OTHER ==
[2022-11-28 21:28] LABS: African American GFR (CKD) 62.5 (60.0-200.0); BUN/Creat Ratio 19.55 Ratio (12.00-20.00); Blood Urea Nitrogen 25.8 mg/dL (9.0-27.0); Calcium 9.7 mg/dL (8.7-10.3); Carbon Dioxide 21.2 mmol/L (20.0-27.5); Non-African American GFR(CKD) 53.9 (60.0-200.0); Potassium 4.3 mmol/L (3.5-5.5)
== END | disposition home or self-care (01) ==
LOC: LABWHC1 11:37
PROVIDERS: ATTEND Family Medicine
DX: R94.4 Abnormal results of kidney function studies (principal)
CPT/HCPCS: 36415; 80048

== ENCOUNTER → 2023-07-04 | Outpatient (CLI) | payer MEDICARE, OTHER ==
[2023-07-05 01:29] LABS: ALT 33 U/L (10-49); AST 38 U/L (14-35); Albumin 4.2 d/dL (3.8-4.9); Albumin/Globulin Ratio 1.83 Ratio (1.60-3.17); Alkaline Phosphatase 59 U/L (41-126); BUN/Creat Ratio 16.73 Ratio (12.00-20.00); Blood Urea Nitrogen 18.4 mg/dL (9.0-27.0); Calcium 9.4 mg/dL (8.7-10.3); Carbon Dioxide 24.7 mmol/L (21.6-31.8); Chloride 106 mmol/L (96-109); Chol/HDL Ratio 3.46 Ratio; Globulin 2.3 d/dL (1.6-3.3); Glucose 94 mg/dL (70-110); LDL Cholesterol,Calculated 76.6 mg/dL (0.0-131.0); Potassium 4.8 mmol/L (3.5-5.5); Sodium 140 mmol/L (135-145); Total Bilirubin 0.3 mg/dL (0.3-1.2); Total Protein 6.5 d/dL (6.2-8.2); Uric Acid 6.8 mg/dL (3.7-8.7)
[2023-07-05 01:55] LABS: Basophils # (A) 0.05 X 10*3/uL (0.00-0.10); Basophils % (A) 0.8 %; Eosinophils # (A) 0.19 X 10*3/uL (0.04-0.35); Eosinophils % (A) 2.9 %; HCT 41.8 % (39.6-50.0); HGB 13.7 d/dL (13.0-17.0); Lymphocytes # (A) 2.37 X 10*3/uL (0.90-5.00); Lymphocytes % (A) 36.4 %; MCHC 32.8 d/dL (32.0-37.0); MCV 100.7 FL (80.0-97.0); Monocytes # (A) 0.57 X 10*3/uL (0.20-1.00); Monocytes % (A) 8.8 %; NRBC Per 100 WBC 0 X 10*3/uL (0.00-0.01); Neutrophils # (A) 3.31 X 10*3/uL (1.80-7.70); Neutrophils % (A) 50.8 %; Platelet Count 178 X 10*3/uL (140-440); RBC 4.15 X 10*6/uL (4.40-5.60); RDW 12.9 % (11.5-14.5); WBC 6.51 X 10*3/uL (4.50-10.00)
[2023-07-05 02:00] LABS: Appearance,Urine Clear (Clear); Bilirubin,Urine Negative (Negative); Blood,Urine Negative (Negative); Color,Urine Yellow (Yellow); Ketones,Urine Negative (Negative); Nitrite,Urine Negative (Negative); PH, Urine 5.5; Specific Gravity,Urine 1.011 (1.001-1.030); Urobilinogen,Urine 0.2 E.U./DL
[2023-07-05 05:25] LABS: Urine Creatinine 82.4 mg/dL (39.0-259.0)
== END | disposition home or self-care (01) ==
LOC: LABWHC1 10:15
PROVIDERS: ATTEND Family Medicine
DX: Z00.01 Encounter for general adult medical examination with abnormal findings (principal); E11.22 Type 2 diabetes mellitus with diabetic chronic kidney disease; N18.9 Chronic kidney disease, unspecified; E78.5 Hyperlipidemia, unspecified; M10.9 Gout, unspecified; K50.00 Crohn's disease of small intestine without complications
CPT/HCPCS: 36415; 80053; 80061; 81003; 82043; 82570; 83036; 84153; 84154; 84550; 85025

== ENCOUNTER → 2024-01-06 | Outpatient (CLI) | payer MEDICARE, OTHER ==
[2024-01-07 03:08] LABS: BUN/Creat Ratio 17.42 Ratio (12.00-20.00); Blood Urea Nitrogen 20.9 mg/dL (9.0-27.0); Calcium 9.5 mg/dL (8.7-10.3); Carbon Dioxide 20.9 mmol/L (21.6-31.8); Chloride 105 mmol/L (96-109); Glucose 114 mg/dL (70-110); Potassium 5.1 mmol/L (3.5-5.5); Sodium 139 mmol/L (135-145)
== END | disposition home or self-care (01) ==
LOC: LABWHC1 14:24
PROVIDERS: ATTEND Family Medicine
DX: E11.9 Type 2 diabetes mellitus without complications (principal)
CPT/HCPCS: 36415; 80048

== ENCOUNTER → 2024-04-24 | Outpatient (CLI) | payer MEDICARE, OTHER ==
[2024-04-24 13:04] LABS: Basophils # (A) 0.06 X 10*3/uL (0.00-0.10); Basophils % (A) 0.8 %; Eosinophils # (A) 0.29 X 10*3/uL (0.04-0.35); Eosinophils % (A) 3.7 %; HCT 40.7 % (39.6-50.0); HGB 13.4 g/dL (13.0-17.0); Lymphocytes # (A) 2.94 X 10*3/uL (0.90-5.00); Lymphocytes % (A) 37.2 %; MCH 33.1 pg (27.0-32.0); MCHC 32.9 g/dL (32.0-37.0); MCV 100.5 FL (80.0-97.0); Monocytes # (A) 0.76 X 10*3/uL (0.20-1.00); Monocytes % (A) 9.6 %; NRBC Per 100 WBC 0 X 10*3/uL (0.00-0.01); Neutrophils # (A) 3.82 X 10*3/uL (1.80-7.70); Neutrophils % (A) 48.3 %; Platelet Count 170 X 10*3/uL (140-440); RBC 4.05 X 10*6/uL (4.40-5.60); RDW 13.2 % (11.5-14.5)
[2024-04-24 13:18] LABS: ALT 21 U/L (10-49); AST 35 U/L (14-35); Albumin 4.3 g/dL (3.8-4.9); Albumin/Globulin Ratio 1.95 Ratio (1.60-3.17); Alkaline Phosphatase 58 U/L (41-126); BUN/Creat Ratio 22.69 Ratio (12.00-20.00); Blood Urea Nitrogen 29.5 mg/dL (9.0-27.0); Calcium 9.2 mg/dL (8.7-10.3); Carbon Dioxide 23.1 mmol/L (21.6-31.8); Chloride 104 mmol/L (96-109); Globulin 2.2 g/dL (1.6-3.3); Glucose 109 mg/dL (70-110); Potassium 4.6 mmol/L (3.5-5.5); Sodium 139 mmol/L (135-145); Total Bilirubin 0.4 mg/dL (0.3-1.2); Total Protein 6.5 g/dL (6.2-8.2); Uric Acid 6.2 mg/dL (3.7-8.7)
== END | disposition home or self-care (01) ==
LOC: LABWHC1 08:13
PROVIDERS: ATTEND Internal Medicine Gastroenterology
DX: K50.00 Crohn's disease of small intestine without complications (principal); E78.5 Hyperlipidemia, unspecified; M10.9 Gout, unspecified; E11.9 Type 2 diabetes mellitus without complications
CPT/HCPCS: 36415; 80053; 83036; 84550; 85025

== ENCOUNTER 2024-06-08 11:42 | Emergency (ER) | payer MEDICARE, OTHER ==
--- NOTE | 2024-06-08 12:13 | ED ---
Upper Extremity HPI - General Chief Complaint: Extremity Injury, Upper Stated Complaint: Back/R shoulder pain Time Seen by Provider: 06/08/24 11:55 Source: patient, family, RN notes reviewed Mode of arrival: ambulatory Limitations: no limitations - History of Present Illness Initial Comments: 74-year-old male presenting with right shoulder pain x 2 weeks. States he was pulling on a chainsaw when he felt immediate pain in his right shoulder. He has been having pain while raising his arm since then. He also here for what he believes is a sciatica flareup in his right buttocks extending into his right knee. States he has had similar symptoms on the left side previously and was diagnosed with sciatica by [facility]. States for about 3 weeks he has been having an intermittent shooting, stabbing pain going down his buttocks and into his right knee. Denies back injury. Denies loss of bowel or bladder control. Denies fever or chills. He states the symptoms are affecting his quality of life. - Related Data Home Medications Medication Instructions Recorded Confirmed lisinopriL [Zestril] 10 mg PO HS 02/04/17 05/23/22 Adalimumab [Humira Pediatric] 40 mg SQ Q10D 04/08/17 05/23/22 [place]-3 Fatty Acids/Fish Oil [Fish 1,200 mg PO DAILY 04/08/17 05/23/22 Oil 1,000 mg Capsule] Simvastatin [Zocor] 40 mg PO HS 04/08/17 05/23/22 Montelukast Sodium [Singulair] 10 mg PO HS 04/14/18 05/23/22 Baclofen [Lioresal] 20 mg PO HS 06/11/19 05/23/22 Cyanocobalamin (Vitamin B-12) 5,000 mcg PO Q14D 06/11/19 05/23/22 [Vitamin B-12] Methotrexate/Pf [Rasuvo 25 mg/0.5 7.5 mg SQ Q10D 12/21/20 05/23/22 ml Autoinj] allopurinoL [Zyloprim] 100 mg PO HS 12/21/20 05/23/22 Albuterol Sulfate [Proair Hfa] 2 puff INHALATION Q4HR PRN 09/26/21 05/23/22 Cetirizine HCl 10 mg PO DAILY 09/26/21 05/23/22 Cholecalciferol [Vitamin D3 (125 125 mg PO DIRECTED 09/26/21 05/23/22 Mcg = 5000 Iu)] Folic Acid 400 mcg PO SA 09/26/21 05/23/22 Melatonin [Melatonin ER] 10 mg PO HS 09/26/21 05/23/22 Turmeric Root Extract [Turmeric] 1,000 mg PO Q2D 09/26/21 05/23/22 Ubidecarenone [Co Q-10] 200 mg PO Q2D 09/26/21 05/23/22 cycloSPORINE [Restasis] 1 drop BOTH EYES DAILY 09/26/21 05/23/22 Ascorbic Acid [Vitamin C] 500 mg PO DAILY 11/05/21 05/23/22 Magnesium 400 mg PO HS 11/05/21 05/23/22 Acetaminophen/Diphenhydramine 2 tab PO HS 12/26/21 05/23/22 [Tylenol PM 500-25mg] Fluticasone Nasal [place] [Flonase 1 spray EA NOSTRIL HS 12/26/21 05/23/22 Nasal [place]] Insulin Degludec [Tresiba] 16 units SQ HS 12/26/21 05/23/22 Previous Rx's Medication Instructions Recorded Aspirin 81 mg PO DAILY 04/03/17 Lidocaine 5% Patch [Lidoderm 5% 1 patch TOPICAL DAILY 7 Days #7 06/08/24 Patch] patch methylPREDNISolone Dose Pack 4 mg PO DIRECTED #21 tab 06/08/24 [Medrol Dose Pack] Allergies Allergy/AdvReac Type Severity Reaction Status Date / Time bupropion [From Wellbutrin] Allergy Rash/Hives/ Verified 05/23/22 08:24 Swelling Review of Systems ROS Statement: Those systems with pertinent positive or pertinent negative responses have been documented in the HPI. ROS Other: All systems not noted in ROS Statement are negative. Past Medical History Past Medical History: Diabetes Mellitus, Deep Vein Thrombosis (DVT), Eye Disorder, Hyperlipidemia, Hyperlipidemia, Hypertension, Myocardial Infarction ([place]), Renal Disease, Skin Disorder Additional Past Medical History / Comment(s): Crohn's; Episcleritis L Eye; Pyoderma gangrenosum L Leg-healed,elevated triglyerides,heart palpitations,DVT left leg knee area 2016, varicose veins, hx gout, "low kidney function" Last Myocardial Infarction Date:: 2009 History of Any Multi-Drug Resistant Organisms: None Reported Past Surgical History: Heart Catheterization With Stent, Orthopedic Surgery Additional Past Surgical History / Comment(s): R Knee miniscus repair, colonoscopy and EGD, heart stent x1, left wrist carpal tunnel, vasectomy, Past Anesthesia/Blood Transfusion Reactions: No Reported Reaction Date of Last Stent Placement:: 2009 Past Psychological History: No Psychological Hx Reported Smoking Status: Former smoker - Past Family History Mother Family Medical History: No Reported History Additional Family Medical History / Comment(s): . Brother(s) History Unknown: Yes General Exam Limitations: no limitations General appearance: alert, in no apparent distress Head exam: Present: atraumatic, normocephalic, normal inspection Eye exam: Present: normal appearance. Absent: scleral icterus, conjunctival injection, periorbital swelling Right Shoulder Exam: Present: normal inspection, full ROM (Pain with shoulder flexion). Absent: tenderness, swelling, abrasion, erythema Upper Arm exam: Present: normal inspection, full ROM, tenderness (Mild point tenderness on ventral aspect of proximal right upper arm). Absent: swelling Elbow exam: Present: normal inspection, full ROM. Absent: tenderness, swelling Forearm Wrist exam: Present: normal inspection, full ROM. Absent: tenderness, swelling Hand Wrist exam: Present: normal inspection, full ROM. Absent: tenderness, swelling Vascular: Present: vascular compromise, radial pulse. Absent: normal capillary refill Back exam: Present: normal inspection, full ROM, other (Full strength and range of motion of bilateral hips. No saddle anesthesia. Full sensation and dorsalis pedis pulses in bilateral lower extremities. ). Absent: tenderness, CVA tenderness (R), CVA tenderness (L), muscle spasm, paraspinal tenderness, vertebral tenderness, rash noted Neurological exam: Present: alert, oriented X3 Psychiatric exam: Present: normal affect, normal mood Skin exam: Present: warm, dry, intact, normal color. Absent: rash Course Vital Signs 06/08/24 11:44 Temperature 97.7 F Pulse Rate 71 Respiratory 20 Rate Blood Pressure 144/83 O2 Sat by Pulse 98 Oximetry Medical Decision Making - Medical Decision Making Was pt. sent in by a medical professional or institution (, PA, PSYCHOLOGIST COUNSELING, urgent care, hospital, or correction...) When possible be specific @ -No Did you speak to anyone other than the patient for history (EMS, parent, family, police, friend...)? What history was obtained from this source @ -Patient's supplemented history Did you review nursing and triage notes (agree or disagree)? Why? @ -I reviewed and agree with nursing and triage notes Were old charts reviewed (outside hosp., previous admission, EMS record, old EKG, old radiological studies, urgent care reports/EKG's, correction records)? Report findings @ -No old charts were reviewed Differential Diagnosis (chest pain, altered mental status, abdominal pain women, abdominal pain men, vaginal bleeding, weakness, fever, dyspnea, syncope, headache, dizziness, GI bleed, back pain, seizure, CVA, palpatations, mental health, musculoskeletal)? @ -Differential Musculoskeletal Muscular strain, contusion, ligament sprain, fracture, arthritis, septic arthritis, bursitis, cellulitis, muscle spasm, nerve compression, DVT, arterial occlusion, herpes zoster, electrolyte abnormality, tumor.... This is not meant to be in all inclusive list EKG interpreted by me (3pts min.). @ -None X-rays interpreted by me (1pt min.). @ -X-ray of right shoulder revealed no acute process. X-ray of lower back revealed loss of height involving superior endplate of T12 estimated at 30 to 40% uncertain age or etiology CT interpreted by me (1pt min.). @ -None done U/S interpreted by me (1pt. min.). @ -None done What testing was considered but not performed or refused? (CT, X-rays, U/S, labs)? Why? @ -None What meds were considered but not given or refused? Why? @ -None Did you discuss the management of the patient with other professionals (professionals i.e. , PA, PSYCHOLOGIST COUNSELING, lab, RT, psych nurse, social worker school, maintenance foreman, teacher, environmental officer, manager maritime)? Give summary @ -No Was smoking cessation discussed for >3mins.? @ -No Was critical care preformed (if so, how long)? @ -No Were there social determinants of health that impacted care today? How? (Homelessness, low income, unemployed, alcoholism, drug addiction, transportation, low edu. Level, literacy, decrease access to med. care, [facility], rehab)? @ -No Was there de-escalation of care discussed even if they declined (Discuss DNR or withdrawal of care, Hospice)? DNR status @ -No What co-morbidities impacted this encounter? (DM, HTN, Smoking, COPD, CAD, Cancer, CVA, ARF, Chemo, Hep., AIDS, mental health diagnosis, sleep apnea, morbid obesity)? @ -None Was patient admitted / discharged? Hospital course, mention meds given and route, prescriptions, significant lab abnormalities, going to OR and other pertinent info. @ -Patient was discharged. Patient was seen and evaluated for right shoulder pain x 2 weeks and sciatica flareup x 3 weeks. Patient is neurovascularly intact. No red flag symptoms. Patient was given IM DEXA and IM Norflex. X-ray right shoulder reveals no acute process. X-ray of lower back reveals loss of height involving superior endplate of T12 estimated at 30 to 40% uncertain age or etiology. Upon reevaluation, patient states symptoms have improved. Discussed diagnosis of right shoulder strain and sciatica. Advised to follow-up with his established orthopedic physician and patient agrees to plan. Strict return precautions discussed and patient shows understanding and agrees. Letty ent discharged with analgesics. Case was discussed with my ED attending Dr. Archibald. Patient discharged in stable condition. Undiagnosed new problem with uncertain prognosis? @ -No Drug Therapy requiring intensive monitoring for toxicity (Heparin, Nitro, Insulin, Cardizem)? @ -No Were any procedures done? @ -No Diagnosis/symptom? @ -Right shoulder strain, right-sided sciatica Acute, or Chronic, or Acute on Chronic? @ -Acute Uncomplicated (without systemic symptoms) or Complicated (systemic symptoms)? @ -Uncomplicated Side effects of treatment? @ -No Exacerbation, Progression, or Severe Exacerbation? @ -No Poses a threat to life or bodily function? How? (Chest pain, [place], [place], pneumonia, PE, COPD, DKA, ARF, appy, cholecystitis, CVA, Diverticulitis, Homicidal, Suicidal, threat to staff... and all critical care pts) @ -No Disposition Clinical Impression: Right shoulder strain, Sciatica, right side Disposition: HOME SELF-CARE Condition: Stable Instructions (If sedation given, give patient instructions): Sciatica (ED) Additional Instructions: Please return to the Emergency Department if symptoms worsen or any other concerns. Prescriptions: Lidocaine 5% Patch [Lidoderm 5% Patch] 1 patch TOPICAL DAILY 7 Days #7 patch methylPREDNISolone Dose Pack [Medrol Dose Pack] 4 mg PO DIRECTED #21 tab Is patient prescribed a controlled substance at d/c from ED?: No Referrals: Jose M Valenzuela DO [Primary Care Provider] - 1-2 days Time of Disposition: 13:52
[2024-06-08] MEDS: ORPHENADRINE 30 MG/ML 2 ML VIAL IM STA (12:28)
[2024-06-08] MEDS: DEXAMETHASONE SOD PHOSPHATE 10 MG/ML 1 ML VIAL IM STA (12:29)
--- NOTE | 2024-06-08 13:06 | XR ---
EXAMINATION TYPE: XR lumbar spine 2 or 3V DATE OF EXAM: 06/08/2024 CLINICAL HISTORY: pain TECHNIQUE: Three views of the lumbar spine are submitted. COMPARISON: None. FINDINGS: There is loss of height involving superior endplate of T12 estimated at 30-40% which is of uncertain age and/or etiology. No definite bony retropulsion radiographically. Lumbar segments are intact. Mode rate to severe degenerative narrowing L3-4 through L5-S1. Lower lumbar facet joint arthropathy. IMPRESSION: There is loss of height involving superior endplate of T12 estimated at 30-40% which is of uncertain age and/or etiology.
--- NOTE | 2024-06-08 13:07 | XR ---
EXAMINATION TYPE: XR shoulder complete RT DATE OF EXAM: 06/08/2024 CLINICAL HISTORY: pain TECHNIQUE: Three views of the right shoulder are obtained. COMPARISON: None FINDINGS: There is no acute fracture/dislocation evident. The acromioclavicular and glenohumeral curry int spaces appear within normal limits. The visualized ribs are intact and unremarkable. IMPRESSION: 1. There is no acute fracture or dislocation. ICD 10 NO FRACTURE, INITIAL EVALUATION
[2024-06-08 14:14] VITALS: BP 135/71; PULSE 60; RESP 18; TEMP 97.9
== END 2024-06-08 12:04 | disposition home or self-care (01) ==
LOC: EC 11:42
DX: S46.911A Strain of unspecified muscle, fascia and tendon at shoulder and upper arm level, right arm, initial encounter (principal); M54.31 Sciatica, right side; Z87.891 Personal history of nicotine dependence; Z88.8 Allergy status to other drugs, medicaments and biological substances; Z95.5 Presence of coronary angioplasty implant and graft; W29.3XXA Contact with powered garden and outdoor hand tools and machinery, initial encounter
CPT/HCPCS: 99283 ×2; 96372 ×3; 72100; 73030; J1100; J2360

== ENCOUNTER → 2024-07-13 | Outpatient (CLI) | payer MEDICARE, OTHER ==
[2024-07-13 16:51] LABS: Basophils # (A) 0.04 X 10*3/uL (0.00-0.10); Basophils % (A) 0.5 %; Eosinophils # (A) 0.23 X 10*3/uL (0.04-0.35); HCT 40.9 % (39.6-50.0); HGB 13.5 g/dL (13.0-17.0); Lymphocytes # (A) 3.15 X 10*3/uL (0.90-5.00); Lymphocytes % (A) 41.3 %; MCH 32.8 pg (27.0-32.0); MCV 99.3 FL (80.0-97.0); Mean Platelet Volume 9.9 FL (9.5-12.2); Monocytes # (A) 0.72 X 10*3/uL (0.20-1.00); Monocytes % (A) 9.4 %; NRBC Per 100 WBC 0 X 10*3/uL (0.00-0.01); Neutrophils # (A) 3.42 X 10*3/uL (1.80-7.70); Platelet Count 193 X 10*3/uL (140-440); RBC 4.12 X 10*6/uL (4.40-5.60); WBC 7.62 X 10*3/uL (4.50-10.00)
[2024-07-13 16:57] LABS: BUN/Creat Ratio 15.67 Ratio (12.00-20.00); Blood Urea Nitrogen 18.8 mg/dL (9.0-27.0); Calcium 9.9 mg/dL (8.7-10.3); Carbon Dioxide 25.4 mmol/L (21.6-31.8); Chloride 102 mmol/L (96-109); Glucose 110 mg/dL (70-110); Potassium 4.5 mmol/L (3.5-5.5); Sodium 138 mmol/L (135-145)
== END | disposition home or self-care (01) ==
LOC: LABWHC1 09:44
PROVIDERS: ATTEND Family Medicine
DX: E11.9 Type 2 diabetes mellitus without complications (principal); N17.9 Acute kidney failure, unspecified
CPT/HCPCS: 36415; 80048; 83036; 85025

== ENCOUNTER → 2024-09-15 | Outpatient (CLI) | payer MEDICARE, OTHER ==
[2024-09-15 16:57] LABS: INR 0.9 (<1.2); Prothrombin Time 9.7 sec (10.0-12.5)
[2024-09-16 02:27] LABS: Basophils # (A) 0.09 X 10*3/uL (0.00-0.10); Basophils % (A) 0.8 %; Eosinophils # (A) 0.16 X 10*3/uL (0.04-0.35); Eosinophils % (A) 1.5 %; HCT 39.1 % (39.6-50.0); HGB 13.2 g/dL (13.0-17.0); Lymphocytes # (A) 2.89 X 10*3/uL (0.90-5.00); MCH 33.7 pg (27.0-32.0); MCHC 33.8 g/dL (32.0-37.0); MCV 99.7 FL (80.0-97.0); Mean Platelet Volume 9.9 FL (9.5-12.2); Monocytes # (A) 1.08 X 10*3/uL (0.20-1.00); Monocytes % (A) 10.1 %; NRBC Per 100 WBC 0 X 10*3/uL (0.00-0.01); Neutrophils % (A) 59.8 %; Platelet Count 213 X 10*3/uL (140-440); RBC 3.92 X 10*6/uL (4.40-5.60); RDW 12.9 % (11.5-14.5); WBC 10.71 X 10*3/uL (4.50-10.00)
[2024-09-16 03:31] LABS: ALT 23 U/L (10-49); AST 31 U/L (14-35); Albumin 4.4 g/dL (3.8-4.9); Albumin/Globulin Ratio 1.76 Ratio (1.60-3.17); Alkaline Phosphatase 60 U/L (41-126); BUN/Creat Ratio 19.46 Ratio (12.00-20.00); Blood Urea Nitrogen 25.3 mg/dL (9.0-27.0); Calcium 9.4 mg/dL (8.7-10.3); Carbon Dioxide 21.1 mmol/L (21.6-31.8); Chloride 105 mmol/L (96-109); Globulin 2.5 g/dL (1.6-3.3); Glucose 103 mg/dL (70-110); Magnesium 1.8 mg/dL (1.5-2.4); Potassium 4.8 mmol/L (3.5-5.5); Sodium 139 mmol/L (135-145); Total Bilirubin 0.3 mg/dL (0.3-1.2); Total Protein 6.9 g/dL (6.2-8.2)
[2024-09-16 04:26] LABS: Appearance,Urine Clear (Clear); Bilirubin,Urine Negative (Negative); Blood,Urine Negative (Negative); Color,Urine Yellow (Yellow); Ketones,Urine Negative (Negative); Nitrite,Urine Negative (Negative); PH, Urine 5.5; Specific Gravity,Urine 1.009 (1.001-1.030); Urobilinogen,Urine 0.2 E.U./DL
== END | disposition home or self-care (01) ==
LOC: LABPAT 16:20
PROVIDERS: ATTEND Family Medicine
DX: Z01.818 Encounter for other preprocedural examination (principal); E11.9 Type 2 diabetes mellitus without complications; N18.9 Chronic kidney disease, unspecified
CPT/HCPCS: 80053; 81003; 82306; 83036; 83735; 85025; 85610; 85730

== ENCOUNTER → 2024-11-30 | Outpatient (CLI) | payer MEDICARE, OTHER ==
[2024-11-30 15:01] LABS: Basophils # (A) 0.05 X 10*3/uL (0.00-0.10); Basophils % (A) 0.7 %; Eosinophils # (A) 0.36 X 10*3/uL (0.04-0.35); Eosinophils % (A) 4.7 %; Lymphocytes % (A) 41.7 %; MCH 32.5 pg (27.0-32.0); MCHC 32.6 g/dL (32.0-37.0); MCV 99.8 FL (80.0-97.0); Mean Platelet Volume 9.9 FL (9.5-12.2); Monocytes # (A) 0.71 X 10*3/uL (0.20-1.00); Monocytes % (A) 9.3 %; NRBC Per 100 WBC 0 X 10*3/uL (0.00-0.01); Neutrophils # (A) 3.33 X 10*3/uL (1.80-7.70); Neutrophils % (A) 43.3 %; Platelet Count 199 X 10*3/uL (140-440); RBC 4.31 X 10*6/uL (4.40-5.60); RDW 12.1 % (11.5-14.5); WBC 7.67 X 10*3/uL (4.50-10.00)
[2024-11-30 15:15] LABS: ALT 20 U/L (10-49); AST 27 U/L (14-35); Albumin 4.3 g/dL (3.8-4.9); Albumin/Globulin Ratio 1.48 Ratio (1.60-3.17); Alkaline Phosphatase 55 U/L (41-126); BUN/Creat Ratio 14.31 Ratio (12.00-20.00); Blood Urea Nitrogen 18.6 mg/dL (9.0-27.0); Calcium 9.5 mg/dL (8.7-10.3); Carbon Dioxide 25.1 mmol/L (21.6-31.8); Chloride 105 mmol/L (96-109); Globulin 2.9 g/dL (1.6-3.3); Glucose 95 mg/dL (70-110); Potassium 4.3 mmol/L (3.5-5.5); Sodium 141 mmol/L (135-145); Total Bilirubin <0.2 mg/dL (0.3-1.2); Total Protein 7.2 g/dL (6.2-8.2); Uric Acid 5.7 mg/dL (3.7-8.7)
== END | disposition home or self-care (01) ==
LOC: LABWHC1 11:22
PROVIDERS: ATTEND Internal Medicine Gastroenterology
DX: I10 Essential (primary) hypertension (principal); K50.00 Crohn's disease of small intestine without complications; E11.9 Type 2 diabetes mellitus without complications; M10.9 Gout, unspecified
CPT/HCPCS: 36415; 80053; 83036; 84550; 85025

== ENCOUNTER 2025-02-22 12:29 | Observation (INO) | payer MEDICARE, OTHER ==
--- NOTE | 2025-02-22 12:43 | ED ---
General Adult HPI - General Chief complaint: Syncope Stated complaint: Syncopal episdode/bradycardia Time Seen by Provider: 02/22/25 12:35 Source: patient Mode of arrival: ambulatory Limitations: no limitations - History of Present Illness Initial comments: 74-year-old male with past medical history of [place], hypertension, hyperlipidemia, diabetes who presents to the emergency department with 3 syncopal episodes. [facility] his right shoulder when he felt like he was get a pass out. Patient ended up having a syncopal episode but was not injured. Vitals were obtained as the patient was bradycardic in the 20s. He then subsequently had 2 additional episodes for EMS. They did have him on the heart monitor and thought that patient went into a junctional bradycardia. He was not administered any medications as his heart rate did rebound fairly quickly. Patient arrives diaphoretic. He admits to generalized weakness. Denies any chest pain or shortness of breath. No nausea or vomiting. States that during his physical therapy session he was in extreme amount of pain. He admits to 1 previous episode of syncope last year when he was in a lot of pain from sciatica. He does admit to a history of [place] 24 years ago where he had 1 stent placement. Currently follows with Dr. Correa. Denies any changes recently to his medications. Patient is not on a beta-cesar. No other alleviating, precipitating or modifying factors - Related Data Home Medications Medication Instructions Recorded Confirmed lisinopriL [Zestril] 10 mg PO HS 02/04/17 05/23/22 Adalimumab [Humira Pediatric] 40 mg SQ Q10D 04/08/17 05/23/22 [place]-3 Fatty Acids/Fish Oil [Fish 1,200 mg PO DAILY 04/08/17 05/23/22 Oil 1,000 mg Capsule] Simvastatin [Zocor] 40 mg PO HS 04/08/17 05/23/22 Montelukast Sodium [Singulair] 10 mg PO HS 04/14/18 05/23/22 Baclofen [Lioresal] 20 mg PO HS 06/11/19 05/23/22 Cyanocobalamin (Vitamin B-12) 5,000 mcg PO Q14D 06/11/19 05/23/22 [Vitamin B-12] Methotrexate/Pf [Rasuvo 25 mg/0.5 7.5 mg SQ Q10D 12/21/20 05/23/22 ml Autoinj] allopurinoL [Zyloprim] 100 mg PO HS 12/21/20 05/23/22 Albuterol Sulfate [Proair Hfa] 2 puff INHALATION Q4HR PRN 09/26/21 05/23/22 Cetirizine HCl 10 mg PO DAILY 09/26/21 05/23/22 Cholecalciferol [Vitamin D3 (125 125 mg PO DIRECTED 09/26/21 05/23/22 Mcg = 5000 Iu)] Folic Acid 400 mcg PO SA 09/26/21 05/23/22 Melatonin [Melatonin Tr] 10 mg PO HS 09/26/21 05/23/22 Turmeric Root Extract [Turmeric] 1,000 mg PO Q2D 09/26/21 05/23/22 Ubidecarenone [Co Q-10] 200 mg PO Q2D 09/26/21 05/23/22 cycloSPORINE [Restasis] 1 drop BOTH EYES DAILY 09/26/21 05/23/22 Ascorbic Acid [Vitamin C] 500 mg PO DAILY 11/05/21 05/23/22 Magnesium 400 mg PO HS 11/05/21 05/23/22 Acetaminophen/Diphenhydramine 2 tab PO HS 12/26/21 05/23/22 [Tylenol PM 500-25mg] Fluticasone Nasal [place] [Flonase 1 spray EA NOSTRIL HS 12/26/21 05/23/22 Nasal [place]] Insulin Degludec [Tresiba] 16 units SQ HS 12/26/21 05/23/22 Previous Rx's Medication Instructions Recorded Aspirin 81 mg PO DAILY 04/03/17 Lidocaine 5% Patch [Lidoderm 5% 1 patch TOPICAL DAILY 7 Days #7 06/08/24 Patch] patch methylPREDNISolone Dose Pack 4 mg PO DIRECTED #21 tab 06/08/24 [Medrol Dose Pack] Allergies Allergy/AdvReac Type Severity Reaction Status Date / Time bupropion [From Wellbutrin] Allergy Rash/Hives/ Verified 02/22/25 12:39 Swelling Review of Systems ROS Statement: Those systems with pertinent positive or pertinent negative responses have been documented in the HPI. ROS Other: All systems not noted in ROS Statement are negative. Past Medical History Past Medical History: Diabetes Mellitus, Deep Vein Thrombosis (DVT), Eye Disorder, Hyperlipidemia, Hyperlipidemia, Hypertension, Myocardial Infarction ([place]), Renal Disease, Skin Disorder Additional Past Medical History / Comment(s): Crohn's; Episcleritis L Eye; Pyoderma gangrenosum L Leg-healed,elevated triglyerides,heart palpitations,DVT left leg knee area 2017, varicose veins, hx gout, "low kidney function" Last Myocardial Infarction Date:: 2009 History of Any Multi-Drug Resistant Organisms: None Reported Past Surgical History: Heart Catheterization With Stent, Orthopedic Surgery Additional Past Surgical History / Comment(s): R Knee miniscus repair, colonoscopy and EGD, heart stent x1, left wrist carpal tunnel, vasectomy, Past Anesthesia/Blood Transfusion Reactions: No Reported Reaction Date of Last Stent Placement:: 2009 Past Psychological History: No Psychological Hx Reported Smoking Status: Former smoker Past Alcohol Use History: None Reported Past Drug Use History: None Reported - Past Family History Mother Family Medical History: No Reported History Additional Family Medical History / Comment(s): . Brother(s) History Unknown: Yes General Exam Limitations: no limitations General appearance: alert, in no apparent distress Head exam: Present: atraumatic, normocephalic, normal inspection Eye exam: Present: normal appearance, PERRL, EOMI. Absent: scleral icterus, conjunctival injection, periorbital swelling ENT exam: Present: normal exam, mucous membranes moist Neck exam: Present: normal inspection. Absent: tenderness, meningismus, lymphadenopathy Respiratory exam: Present: normal lung sounds bilaterally. Absent: respiratory distress, wheezes, rales, rhonchi, stridor Cardiovascular Exam: Present: regular rate, normal rhythm, normal heart sounds. Absent: systolic murmur, diastolic murmur, rubs, gallop, clicks GI/Abdominal exam: Present: soft, normal bowel sounds. Absent: distended, tenderness, guarding, rebound, rigid Extremities exam: Present: normal inspection, full ROM, normal capillary refill. Absent: tenderness, pedal edema, joint swelling, calf tenderness Back exam: Present: normal inspection Neurological exam: Present: alert, oriented X3, CN II-XII intact Psychiatric exam: Present: normal affect, normal mood Skin exam: Present: warm, dry, intact, normal color. Absent: rash Course Vital Signs 02/22/25 02/22/25 02/22/25 12:33 12:39 13:07 Temperature 98.1 F Pulse Rate 67 61 Respiratory 20 18 Rate Blood Pressure 97/67 101/63 111/62 O2 Sat by Pulse 96 94 L Oximetry 02/22/25 14:02 Temperature Pulse Rate 60 Respiratory 17 Rate Blood Pressure 97/57 O2 Sat by Pulse 96 Oximetry Medical Decision Making - Medical Decision Making Was pt. sent in by a medical professional or institution (, [facility], [facility], urgent care, hospital, or half-way...) When possible be specific @ -[No] Did you speak to anyone other than the patient for history (EMS, parent, family, police, friend...)? What history was obtained from this source @ -[No] Did you review nursing and triage notes (agree or disagree)? Why? @ -[I reviewed and agree with nursing and triage notes] Were old charts reviewed (outside hosp., previous admission, EMS record, old EKG, old radiological studies, urgent care reports/EKG's, half-way records)? Report findings @ -[No old charts were reviewed] Differential Diagnosis (chest pain, altered mental status, abdominal pain women, abdominal pain men, vaginal bleeding, weakness, fever, dyspnea, syncope, headache, dizziness, GI bleed, back pain, seizure, CVA, palpatations, mental health, musculoskeletal)? @ -[not applicable] EKG interpreted by me (3pts min.). @ -And demonstrates sinus rhythm with a rate of 71. MD interval 164. QRS 112. QTc of 407. No acute ST segment elevations or depressions X-rays interpreted by me (1pt min.). @ -[None done] CT interpreted by me (1pt min.). @ -[None done] U/S interpreted by me (1pt. min.). @ -[None done] What testing was considered but not performed or refused? (CT, X-rays, U/S, labs)? Why? @ -[None] What meds were considered but not given or refused? Why? @ -[None] Did you discuss the management of the patient with other professionals (professionals i.e. [facility], [facility], lab, RT, psych nurse, outreach and education social worker, plate keeper, teacher, electoral officer, trimming caser)? Give summary @ -[No] Was smoking cessation discussed for >3mins.? @ -[No] Was critical care preformed (if so, how long)? @ -[No] Were there social determinants of health that impacted care today? How? (Homelessness, low income, unemployed, alcoholism, drug addiction, transportation, low edu. Level, literacy, decrease access to med. care, fdc, rehab)? @ -[No] Was there de-escalation of care discussed even if they declined (Discuss DNR or withdrawal of care, Hospice)? DNR status @ -[No] What co-morbidities impacted this encounter? (DM, HTN, Smoking, COPD, CAD, Cancer, CVA, ARF, Chemo, Hep., AIDS, mental health diagnosis, sleep apnea, morbid obesity)? @ -[None] Was patient admitted / discharged? Hospital course, mention meds given and route, prescriptions, significant lab abnormalities, going to OR and other pertinent info. @ -[hospital course] Undiagnosed new problem with uncertain prognosis? @ -[No] Drug Therapy requiring intensive monitoring for toxicity (Heparin, Nitro, Insulin, Cardizem)? @ -[No] Were any procedures done? @ -[No] Diagnosis/symptom? @ -[default] Acute, or Chronic, or Acute on Chronic? @ -[default] Uncomplicated (without systemic symptoms) or Complicated (systemic symptoms)? @ -[default] Side effects of treatment? @ -[No] Exacerbation, Progression, or Severe Exacerbation? @ -[No] Poses a threat to life or bodily function? How? (Chest pain, [place], [place], pneumonia, PE, COPD, DKA, ARF, appy, cholecystitis, CVA, Diverticulitis, Homicidal, Suicidal, threat to staff... and all critical care pts) @ -[No] - Lab Data Result diagrams: 02/22/25 12:50 02/22/25 12:50 Lab Results 02/22/25 02/22/25 02/22/25 Range/Units 12:50 12:50 12:50 WBC 12.76 H (4.50-10.00) 10*3/uL RBC 4.48 (4.40-5.60) 10*6/uL Hgb 14.7 (13.0-17.0) g/dL Hct 42.2 (39.6-50.0) % MCV 94.2 (80.0-97.0) fL MCH 32.8 H (27.0-32.0) pg MCHC 34.8 (32.0-37.0) g/dL Plt Count 219 (140-440) 10*3/uL MPV 9.4 L (9.5-12.2) fL Immature Gran % (Auto) 0.3 % Neutrophils % 51.5 % Lymphocytes % 33.0 % Monocytes % 12.4 % Eosinophils % 2.2 % Basophils % 0.6 % Immature Gran # 0.04 (0.00-0.04) 10*3/uL Neutrophils # 6.57 (1.80-7.70) 10*3/uL Lymphocytes # 4.21 (0.90-5.00) 10*3/uL Monocytes # 1.58 H (0.20-1.00) 10*3/uL Eosinophils # 0.28 (0.04-0.35) 10*3/uL Basophils # 0.08 (0.00-0.10) 10*3/uL PT 10.6 (10.0-12.5) sec INR 0.9 (<1.2) APTT 22.0 (22.0-30.0) sec Sodium 135 L (137-145) mmol/L Potassium 3.9 (3.5-5.1) mmol/L Chloride 106 (98-107) mmol/L Carbon Dioxide 15 L (22-30) mmol/L Anion Gap 14 mmol/L BUN 29 H (9-20) mg/dL Creatinine 1.61 H (0.66-1.25) mg/dL Est GFR (CKD-EPI)AfAm 49 (>60 ml/min/1.73 sqM) Est GFR (CKD-EPI)NonAf 42 (>60 ml/min/1.73 sqM) Glucose 121 H (74-99) mg/dL Calcium 10.0 (8.4-10.2) mg/dL Magnesium 1.9 (1.6-2.3) mg/dL Total Bilirubin 0.7 (0.2-1.3) mg/dL AST 28 (17-59) U/L ALT 19 (4-49) U/L Alkaline Phosphatase 54 (38-126) U/L Troponin I (0.000-0.034) ng/mL Total Protein 7.3 (6.3-8.2) g/dL Albumin 4.3 (3.5-5.0) g/dL TSH 5.720 H (0.465-4.680) mIU/L 02/22/25 Range/Units 12:50 WBC (4.50-10.00) 10*3/uL RBC (4.40-5.60) 10*6/uL Hgb (13.0-17.0) g/dL Hct (39.6-50.0) % MCV (80.0-97.0) fL MCH (27.0-32.0) pg MCHC (32.0-37.0) g/dL Plt Count (140-440) 10*3/uL MPV (9.5-12.2) fL Immature Gran % (Auto) % Neutrophils % % Lymphocytes % % Monocytes % % Eosinophils % % Basophils % % Immature Gran # (0.00-0.04) 10*3/uL Neutrophils # (1.80-7.70) 10*3/uL Lymphocytes # (0.90-5.00) 10*3/uL Monocytes # (0.20-1.00) 10*3/uL Eosinophils # (0.04-0.35) 10*3/uL Basophils # (0.00-0.10) 10*3/uL PT (10.0-12.5) sec INR (<1.2) APTT (22.0-30.0) sec Sodium (137-145) mmol/L Potassium (3.5-5.1) mmol/L Chloride (98-107) mmol/L Carbon Dioxide (22-30) mmol/L Anion Gap mmol/L BUN (9-20) mg/dL Creatinine (0.66-1.25) mg/dL Est GFR (CKD-EPI)AfAm (>60 ml/min/1.73 sqM) Est GFR (CKD-EPI)NonAf (>60 ml/min/1.73 sqM) Glucose (74-99) mg/dL Calcium (8.4-10.2) mg/dL Magnesium (1.6-2.3) mg/dL Total Bilirubin (0.2-1.3) mg/dL AST (17-59) U/L ALT (4-49) U/L Alkaline Phosphatase (38-126) U/L Troponin I <0.012 (0.000-0.034) ng/mL Total Protein (6.3-8.2) g/dL Albumin (3.5-5.0) g/dL TSH (0.465-4.680) mIU/L Disposition Clinical Impression: Syncope, Bradycardia Disposition: ADMITTED IP TO THIS [facility] Condition: Stable Is patient prescribed a controlled substance at d/c from ED?: No Referrals: Jose M Valenzuela DO [Primary Care Provider] - 1-2 days Time of Disposition: 14:33 Decision to Admit Reason: Admit from EC Decision Date: 02/22/25 Decision Time: 14:33
[2025-02-22] MEDS: SODIUM CHLORIDE 0.9% 1,000 ML IV STA (12:52)
[2025-02-22 13:02] LABS: ALT 19 U/L (4-49); AST 28 U/L (17-59); African American GFR (CKD) 49 (>60 ml/min/1.73 sqM); Albumin 4.3 g/dL (3.5-5.0); Alkaline Phosphatase 54 U/L (38-126); Anion Gap 14 mmol/L; Basophils # (A) 0.08 10*3/uL (0.00-0.10); Basophils % (A) 0.6 %; Blood Urea Nitrogen 29 mg/dL (9-20); Carbon Dioxide 15 mmol/L (22-30); Chloride 106 mmol/L (98-107); Eosinophils # (A) 0.28 10*3/uL (0.04-0.35); Eosinophils % (A) 2.2 %; Glucose 121 mg/dL (74-99); HCT 42.2 % (39.6-50.0); HGB 14.7 g/dL (13.0-17.0); Lymphocytes # (A) 4.21 10*3/uL (0.90-5.00); MCH 32.8 pg (27.0-32.0); MCHC 34.8 g/dL (32.0-37.0); MCV 94.2 fL (80.0-97.0); Magnesium 1.9 mg/dL (1.6-2.3); Mean Platelet Volume 9.4 fL (9.5-12.2); Monocytes # (A) 1.58 10*3/uL (0.20-1.00); Monocytes % (A) 12.4 %; Neutrophils # (A) 6.57 10*3/uL (1.80-7.70); Neutrophils % (A) 51.5 %; Non-African American GFR(CKD) 42 (>60 ml/min/1.73 sqM); Platelet Count 219 10*3/uL (140-440); Potassium 3.9 mmol/L (3.5-5.1); RBC 4.48 10*6/uL (4.40-5.60); RDW 12.5 % (11.5-14.5); Sodium 135 mmol/L (137-145); Total Bilirubin 0.7 mg/dL (0.2-1.3); Total Protein 7.3 g/dL (6.3-8.2); WBC 12.76 10*3/uL (4.50-10.00)
--- NOTE | 2025-02-22 13:26 | XR ---
EXAMINATION TYPE: XR chest 2V DATE OF EXAM: 02/22/2025 1:14 PM COMPARISON: Chest radiographs from 12/03/2013 TECHNIQUE: XR chest 2V Frontal and lateral views of the chest. CLINICAL INDICATION:Male, 74 years old with history of dysrhythmia; FINDINGS: Lungs/Pleura: There is no evidence of pleural effusion, focal consolidation, or pneumothorax. Chroni c interstitial prominence. Heart/mediastinum: Cardiomediastinal silhouette is enlarged. Prominence of the right paratracheal str ipe. Musculoskeletal: No acute osseous pathology. IMPRESSION: 1. No acute cardiopulmonary disease/process. 2. Prominence of the right paratracheal stripe which could represent adenopathy versus other etiolog ies. Consider further evaluation with CT[facility], , 02/22/2025 1:24 PM
[2025-02-22 13:35] LABS: INR 0.9 (<1.2); Prothrombin Time 10.6 sec (10.0-12.5)
[2025-02-22 14:32] LABS: T4, Free (Free Thyroxine) 0.86 ng/dL (0.78-2.19)
[2025-02-22] MEDS ORDERED: NALOXONE 0.4 MG/ML 1 ML VIAL IV PRN (14:36)
[2025-02-22] MEDS: SODIUM CHLORIDE 0.9% 1,000 ML IV SCH (14:45)
[2025-02-22 17:17] LABS: Glucose,Whole Blood 121 mg/dL (70-110)
[2025-02-22] MEDS ORDERED: COLCHICINE 0.6 MG EACH PO PRN (18:57)
[2025-02-22] MEDS ORDERED: ACETAMINOPHEN TAB 500 MG TAB PO PRN (18:57)
[2025-02-22] MEDS ORDERED: NON FORMULARY DRUG (Ubidecarenone [Co Q-10] 100 MG Capsule) PO SCH (19:00)
[2025-02-22] MEDS ORDERED: diphenhydrAMINE 50 MG CAP PO PRN (19:12)
[2025-02-22] MEDS ORDERED: DEXTROSE 50% SYRINGE 50 ML IVP PRN ×2 (20:07)
[2025-02-22 20:12] LABS: Glucose,Whole Blood 247 mg/dL (70-110)
[2025-02-22] MEDS: BACLOFEN 10 MG TAB PO SCH (20:29)
[2025-02-22] MEDS: MONTELUKAST 10 MG TAB PO SCH (20:29)
[2025-02-22] MEDS: lisinopriL 10 MG TAB PO SCH (20:30)
[2025-02-22] MEDS: FOLIC ACID 1 MG TAB PO SCH (20:30)
[2025-02-22] MEDS: FLUTICASONE NASAL 50MCG/SPRAY 16GM BTL EA NOSTRIL SCH (20:30)
[2025-02-22] MEDS: METOPROLOL SUCCINATE (ER) 25 MG TAB.ER.24H PO SCH (20:30)
[2025-02-22] MEDS: INSULIN LISPRO (HumaLOG) 100 UNIT/ML 10 mL VL SQ SCH (20:30)
[2025-02-22] MEDS: LORATADINE 10 MG TAB PO SCH (20:30)
[2025-02-22] MEDS: ATORVASTATIN 20 MG TAB PO SCH (20:30)
[2025-02-22] MEDS: INSULIN GLARGINE (LANTUS) 100 UNIT/ML SYR SQ SCH (21:08)
--- NOTE | 2025-02-22 22:33 | P.HPIM ---
History of Present Illness H&P Date: 02/22/25 Chief Complaint: Passed out Pleasant 74-year-old patient who follows with Dr. Valenzuela. Chronic medical condition include diabetes, hypertension, CAD with stent, kidney disease, borderline Crohn's. Gout. [facility]. He was standing. Suddenly felt lightheaded and he passed out. Must be a few minutes. Did not have any premonitory symptoms. No tongue biting. No incontinence. No reported witnessed seizure. Patient had a similar episode at Dr. Valenzuela's office in June last year. He did wear a monitor for 3 weeks. Saw soaker hides Dr. MOY Correa. He was told nothing came out of that. Normally does not deny any dizziness lightheadedness. 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 Patient smoked less than a pack a day for about 25 years stopped in 2009. No alcohol. Physical examination: VITAL SIGNS: 98.5, 66, 17, 110 x 65, 97% 2 L GENERAL: BMI 26.5, lying bed awake comfortable. EYES: Pupils equal. Conjunctiva merry l. HEENT: External appearance of nose and ears normal, oral cavity grossly normal. NECK: JVD not raised; masses not palpable. HEART: First and second heart sounds are normal; no edema. LUNGS: Respiratory rate normal; decreased breath sounds. ABDOMEN: Soft, nontender, liver spleen not palpable, no masses palpable. PSYCH: Alert and oriented x3; mood and affect merry l. MUSCULOSKELETAL:No Clubbing/cyanosis;muscles-grossly intact NEUROLOGICAL: Cranial nerves grossly intact; no facial asymmetry, power and sensation grossly intact. LYMPHATICS: No lymph nodes palpable in the axilla and neck INVESTIGATIONS, reviewed in the clinical context: February 22, 2025: White count 12.7 hemoglobin 14.7 platelets 219 sodium 135 potassium 3.9 BUN 29 creatinine 1.61 Troponin I less than 0.012 x 3 TSH 5.7 Free T40.86 EKG tracing personally reviewed by me-poor R wave progression Chest x-ray film: Chronic interstitial prominence. Prominence of the right paratracheal stripe. Assessment plan: - Episode of unconsciousness. No premonitory symptoms. No witnessed seizure activity. No palpitation reported. Patient had passed out for a few minutes. Similar episode in June of last year. Apparently had a monitor, for 3 weeks. Was told nothing came out of it. Telemetry. Tilt table test. - Coronary artery disease with stent Zocor. Zestril. - Essential hypertension Zestril Toprol-XL - Diabetes mellitus type 2, chronically on insulin Resume home dose of insulin Glucophage. Accu-Cheks with sliding scale - Hyperuricemia with history of gout Allopurinol - Full code Past Medical History Past Medical History: CVA/TIA, Diabetes Mellitus, Deep Vein Thrombosis (DVT), Eye Disorder, Hypertension, Myocardial Infarction ([place]), Renal Disease, Skin Disorder Additional Past Medical History / Comment(s): Crohn's; Episcleritis L Eye; Pyoderma gangrenosum L Leg-healed,elevated triglyerides,heart palpitations, h/x DVT left leg knee area 2016, varicose veins, hx gout, "low kidney function"; pre diabetic; 02/22 low HR, passed out X 3 Last Myocardial Infarction Date:: 2009 History of Any Multi-Drug Resistant Organisms: None Reported Past Surgical History: Heart Catheterization With Stent, Orthopedic Surgery Additional Past Surgical History / Comment(s): R Knee miniscus repair, colonoscopy and EGD, heart stent x1, left wrist carpal tunnel, vasectomy, right shoulder tendon repair 09/2024 Past Anesthesia/Blood Transfusion Reactions: No Reported Reaction Date of Last Stent Placement:: 2009 Past Psychological History: No Psychological Hx Reported Additional Psychological History / Comment(s): . Smoking Status: Current some day smoker Past Alcohol Use History: None Reported Additional Past Alcohol Use History / Comment(s): quit smoking 2009,smoked approx 25 yrs <1ppd Past Drug Use History: None Reported - Past Family History Mother Family Medical History: No Reported History Additional Family Medical History / Comment(s): . Brother(s) History Unknown: Yes Medications and Allergies Home Medications Medication Instructions Recorded Confirmed Type lisinopriL [Zestril] 10 mg PO HS 02/04/17 02/22/25 History Aspirin 81 mg PO DAILY 04/03/17 02/22/25 Rx Simvastatin [Zocor] 40 mg PO HS 04/08/17 02/22/25 History Montelukast Sodium [Singulair] 10 mg PO HS 04/14/18 02/22/25 History allopurinoL [Zyloprim] 100 mg PO DAILY 12/21/20 02/22/25 History Cetirizine HCl 10 mg PO HS 09/26/21 02/22/25 History Cholecalciferol [Vitamin D3 (125 125 mg PO DIRECTED 09/26/21 02/22/25 History Mcg = 5000 Iu)] Folic Acid 0.4 mcg PO Q28D 09/26/21 02/22/25 History Ubidecarenone [Co Q-10] 200 mg PO Q2D 09/26/21 02/22/25 History cycloSPORINE [Restasis] 1 drop BOTH EYES DAILY 09/26/21 02/22/25 History Ascorbic Acid [Vitamin C] 500 mg PO DAILY 11/05/21 02/22/25 History Acetaminophen/Diphenhydramine 2 tab PO HS PRN 12/26/21 02/22/25 History [Tylenol PM 500-25mg] Fluticasone Nasal [place] [Flonase 1 spray EA NOSTRIL HS 12/26/21 02/22/25 History Nasal [place]] Insulin Degludec [Tresiba] 13 units SQ HS 12/26/21 02/22/25 History Baclofen [Lioresal] 20 mg PO HS 02/22/25 02/22/25 History Biotin 1000mcg 1,000 mcg PO WEEKLY 02/22/25 02/22/25 History Colchicine [Colcrys] 0.6 mg PO DAILY PRN 02/22/25 02/22/25 History Glucosamine/Chondr Nuñez A Sod [Osteo 1 tab PO DAILY 02/22/25 02/22/25 History Bi-Flex Caplet] Insulin Aspart [NovoLOG Flexpen] See Protocol SQ AC-TID 02/22/25 02/22/25 History Magnesium Glycinate 350 mg PO HS 02/22/25 02/22/25 History Metoprolol Succinate (ER) [Toprol 25 mg PO BID 02/22/25 02/22/25 History Xl] Turmeric Root Extract [Turmeric] 1,000 mg PO Q2D 02/22/25 02/22/25 History Vitamin B Complex 1 cap PO WEEKLY 02/22/25 02/22/25 History Yuflyma 40mg 40 mg SQ Q10D 02/22/25 02/22/25 History metFORMIN HCL ER [Glucophage XR] 500 mg PO W/SUPPER 02/22/25 02/22/25 History Allergies Allergy/AdvReac Type Severity Reaction Status Date / Time bupropion [From Wellbutrin] Allergy Rash/Hives/ Verified 02/22/25 16:03 Swelling Physical Exam Vitals: Vital Signs Temp Pulse Pulse Resp BP BP Pulse Ox 02/22/25 20:34 98.5 F 66 17 110/65 97 02/22/25 16:58 67 17 02/22/25 16:57 97.9 F 67 17 115/71 96 02/22/25 16:42 60 20 100/60 95 02/22/25 14:02 60 17 97/57 96 02/22/25 13:07 111/62 02/22/25 12:39 61 18 101/63 94 L 02/22/25 12:33 98.1 F 67 20 97/67 96 Intake and Output 02/22/25 02/22/25 02/22/25 06:59 14:59 22:59 Intake Total 370 Balance 370 Intake: IV 10 Invasive Line 2 10 Oral 360 Other: Voiding Method Toilet Urinal Weight 86.183 kg 86.183 kg Results CBC & Chem 7: 02/22/25 12:50 02/22/25 12:50 Labs: Abnormal Lab Results - Last 24 Hours (Table) 02/22/25 02/22/25 02/22/25 Range/Units 12:50 12:50 17:12 WBC 12.76 H (4.50-10.00) 10*3/uL MCH 32.8 H (27.0-32.0) pg MPV 9.4 L (9.5-12.2) fL Monocytes # 1.58 H (0.20-1.00) 10*3/uL Sodium 135 L (137-145) mmol/L Carbon Dioxide 15 L (22-30) mmol/L BUN 29 H (9-20) mg/dL Creatinine 1.61 H (0.66-1.25) mg/dL Glucose 121 H (74-99) mg/dL POC Glucose (mg/dL) 121 H (70-110) mg/dL TSH 5.720 H (0.465-4.680) mIU/L 02/22/25 Range/Units 20:11 WBC (4.50-10.00) 10*3/uL MCH (27.0-32.0) pg MPV (9.5-12.2) fL Monocytes # (0.20-1.00) 10*3/uL Sodium (137-145) mmol/L Carbon Dioxide (22-30) mmol/L BUN (9-20) mg/dL Creatinine (0.66-1.25) mg/dL Glucose (74-99) mg/dL POC Glucose (mg/dL) 247 H (70-110) mg/dL TSH (0.465-4.680) mIU/L Thrombosis Risk Factor Assmnt - Choose All That Apply Any of the Below Risk Factors Present?: Yes Each Factor Represents 1 point: Obesity (BMI >25) Other Risk Factors: Yes Each Risk Factor Represents 2 Points: Age 61-74 years Each Risk Factor Represents 3 Points: History of DVT/PE Other congenital or acquired thrombophilia - If yes, enter type in comment: No Thrombosis Risk Factor Assessment Total Risk Factor Score: 6 Thrombosis Risk Factor Assessment Level: High Risk
[2025-02-22] MEDS: ENOXAPARIN 40 MG/0.4 ML SYRINGE SQ SCH (23:25)
[2025-02-23 06:11] LABS: Glucose,Whole Blood 95 mg/dL (70-110)
[2025-02-23] MEDS: metFORMIN 500 MG TAB PO SCH (06:26)
[2025-02-23 06:51] LABS: Basophils # (A) 0.05 10*3/uL (0.00-0.10); Basophils % (A) 0.6 %; Eosinophils # (A) 0.21 10*3/uL (0.04-0.35); Eosinophils % (A) 2.5 %; HCT 37.6 % (39.6-50.0); HGB 12.6 g/dL (13.0-17.0); Lymphocytes # (A) 2.76 10*3/uL (0.90-5.00); Lymphocytes % (A) 32.4 %; MCH 32.6 pg (27.0-32.0); MCHC 33.5 g/dL (32.0-37.0); MCV 97.2 fL (80.0-97.0); Mean Platelet Volume 9.5 fL (9.5-12.2); Monocytes # (A) 1.22 10*3/uL (0.20-1.00); Monocytes % (A) 14.3 %; Neutrophils # (A) 4.26 10*3/uL (1.80-7.70); Platelet Count 166 10*3/uL (140-440); RBC 3.87 10*6/uL (4.40-5.60); RDW 12.7 % (11.5-14.5); WBC 8.52 10*3/uL (4.50-10.00)
[2025-02-23 07:14] LABS: African American GFR (CKD) 69 (>60 ml/min/1.73 sqM); Anion Gap 6 mmol/L; Blood Urea Nitrogen 24 mg/dL (9-20); Calcium 9.1 mg/dL (8.4-10.2); Carbon Dioxide 24 mmol/L (22-30); Chloride 108 mmol/L (98-107); Glucose 82 mg/dL (74-99); Non-African American GFR(CKD) 60 (>60 ml/min/1.73 sqM); Potassium 4.2 mmol/L (3.5-5.1); Sodium 138 mmol/L (137-145)
[2025-02-23 08:36] VITALS: BP 141/73; PULSE 70; RESP 16; TEMP 99.3
[2025-02-23] MEDS: ASPIRIN 81 MG PO SCH (08:36)
[2025-02-23] MEDS: allopurinoL 100 MG TAB PO SCH (08:36)
[2025-02-23] MEDS: ASCORBIC ACID 500 MG TAB PO SCH (08:36)
[2025-02-23] MEDS ORDERED: NON FORMULARY DRUG (Glucosamine/Chondr Su A Sod [Osteo Bi-Flex Caplet] 1 EACH Tablet) PO SCH (09:00)
--- NOTE | 2025-02-23 11:24 | CA ---
Transthoracic Echo Report Name: Charles Sarmiento Age: 74 Gender: M : 1950 Exam Date: 02/23/2025 09:59 Exam Location: [facility] Ht (in): 71 Wt (lb): 189 Ordering Physician: Vijaya Duarte Attending/Referring Phys: [id number], Felicia [employer] Machine Operator Lizet Davison RDCS Procedure CPT: Indications: LV function, syncope, hx of CAD Cardiac Hx: Technical Quality: Good Contrast 1: Total Dose (mL): Contrast 2: Total Dose (mL): MEASUREMENTS (Male / Female) Normal Values 2D ECHO LV Diastolic Diameter PLAX 4.5 cm 4.2 - 5.9 / 3.9 - 5.3 cm LV Systolic Diameter PLAX 3.0 cm IVS Diastolic Thickness 1.1 cm 0.6 - 1.0 / 0.6 - 0.9 cm LVPW Diastolic Thickness 1.3 cm 0.6 - 1.0 / 0.6 - 0.9 cm LV Relative Wall Thickness 0.5 RV Internal Dim ED PLAX 4.7 cm LVOT Diameter 2.5 cm LA Systolic Diameter LX 4.0 cm 3.0 - 4.0 / 2.7 - 3.8 cm LV Diastolic Volume MOD BP 144.6 cm??? 67 - 155 / 56 - 104 cm??? LV Systolic Volume MOD BP 47.6 cm??? 22 - 58 / 19 - 49 cm??? LV Ejection Fraction MOD BP 67.1 % >= 55 % LV Cardiac Index MOD BP 3025.6 cm???/min???m??? LV Diastolic Volume MOD 4C 143.7 cm??? LV Systolic Volume MOD 4C 45.3 cm??? LV Ejection Fraction MOD 4C 68.4 % LV Cardiac Index MOD 4C 3066.1 cm???/min???m??? LV Diastolic Length 4C 10.0 cm LV Systolic Length 4C 8.6 cm LV Diastolic Volume MOD 2C 136.3 cm??? LV Systolic Volume MOD 2C 48.2 cm??? LV Ejection Fraction MOD 2C 64.6 % LV Cardiac Index MOD 2C 2748.4 cm???/min???m??? LV Diastolic Length 2C 9.3 cm LV Systolic Length 2C 8.0 cm LA Volume 76.0 cm??? 18 - 58 / 22 - 52 cm??? LA Volume Index 36.5 cm???/m??? 16 - 28 cm???/m??? M-MODE Aortic Root Diameter MM 3.9 cm DOPPLER AV Peak Velocity 273.7 cm/s AV Peak Gradient 30.0 mmHg AV Mean Velocity 193.8 cm/s AV Mean Gradient 17.1 mmHg AV Velocity Time Integral 60.8 cm AI Peak Velocity 284.5 cm/s AI Peak Gradient 32.4 mmHg AI Pressure Half Time 950.0 ms LVOT Peak Velocity 149.3 cm/s LVOT Peak Gradient 8.9 mmHg LVOT Velocity Time Integral 32.9 cm LVOT Stroke Volume 162.9 cm??? LVOT Stroke Volume Index 79.1 ml/m??? LVOT Cardiac Index 5080.4 cm???/min???m??? AV Area Cont Eq vti 2.7 cm??? AV Area Cont Eq pk 2.7 cm??? MV Area PHT 2.7 cm??? Mitral E Point Velocity 118.0 cm/s Mitral A Point Velocity 111.0 cm/s Mitral E to A Ratio 1.1 MV Deceleration Time 275.9 ms TR Peak Velocity 238.6 cm/s TR Peak Gradient 22.8 mmHg Right Ventricular Systolic Press 27.0 mmHg FINDINGS Left Ventricle Left ventricular ejection fraction is estimated at 55-60 %. Left ventricular cavity size normal. Mildly increased septal wall thickness. No obvious regional wall motion abnormalities. Right Ventricle Mild right ventricular dilatation. Right ventricular systolic pressure within normal limits. Right Atrium Normal right atrial size. No right atrial thrombus or mass seen. Left Atrium Mild increased left atrial volume. Mildly increased left atrial area. Mitral Valve Mitral valve thickened. Mitral annular calcification. Mild mitral regurgitation. Aortic Valve Trileaflet aortic valve. Aortic valve sclerosis. Mild aortic stenosis with a peak gradient of 30 mmHg and a mean gradient of 17 mmHg. Mild aortic regurgitation. Tricuspid Valve Structurally normal tricuspid valve. Mild tricuspid regurgitation. Pulmonic Valve Structurally normal pulmonic valve. Trace to mild pulmonic regurgitation. Pericardium No pericardial effusion. Aorta Mild aortic dilatation at the level of the sinuses of valsalva 39 mm CONCLUSIONS LVEF 55% No obvious regional wall motion abnormality Mild concentric LVH Mild RV dilatation, mild LA dilatation Mild MR Sclerotic aortic valve with mild aortic stenosis and mild aortic regurgitation, mean gradient 17 mmHg Aortic root at upper limit of normal measuring at 3.9 cm Previewed by: Dr Shakir Johnson (Electronically Signed) Final Date: 23 February 2025 11:23
[2025-02-23 11:55] LABS: Glucose,Whole Blood 93 mg/dL (70-110)
[2025-02-23] MEDS: cycloSPORINE 0.05% OPHTH 0.4 ML DROPERETTE BOTH EYES SCH (12:38)
--- NOTE | 2025-02-23 13:07 | P.CRDCN ---
History of Present Illness History of present illness: HISTORY OF PRESENT ILLNESS: This is a 74-year-old male with a past medical history significant for coronary artery disease with previous stenting, hypertension, hyperlipidemia, diabetes, and Crohn's disease. Patient follows in the office with Dr. Correa. We have been asked to see the patient in consultation for tilt table testing. Patient examined at the bedside. Patient states on Friday night he started having pain in his gums. He states on Friday the pain persisted so he went to the dentist and was told everything was fine. He states on Friday he continued to feel unwell but he did go to physical therapy. He reports having an episode of syncope at home friday. He reports he woke up on the floor. He states he passed out two more times while laying on the floor. He was feeling nauseous on the way to the hospital. He reports one other episode of syncope due to sciatic pain in June 2024. DIAGNOSTICS: - EKG reveals sinus mechanism with nonspecific ST-T wave changes. - Chest xray negative for acute process. Prominence of the right paratracheal stripe which could represent adenopathy versus other etiologies. - Laboratory data: WBC 8.52. Hemoglobin 12.6. Platelet count 166. Sodium 138. Potassium 4.2. BUN 24. Creatinine 1.20. Troponin negative x 3 - Current home cardiac medications include metoprolol succinate 25 mg twice a day, aspirin 81 mg daily, lisinopril 10 mg at night, simvastatin 40 mg at night - Most recent echocardiogram obtained in 12/2023 revealed ejection fraction 50%, small hypokinetic area of the inferior wall at the base, mild aortic stenosis with mean gradient 20 mmHg, mild MR and mild to moderate TR REVIEW OF SYSTEMS: At the time of my exam: CONSTITUTIONAL: Denies fever or chills. HEENT: Denies blurred vision, vision changes, or eye pain. Denies hemoptysis CARDIOVASCULAR: Denies chest pain. Denies orthopnea. Denies PND. Denies pa lpitations RESPIRATORY: Denies shortness of breath. GASTROINTESTINAL: Denies abdominal pain. Denies nausea or vomiting. HEMATOLOGIC: Denies bleeding disorders. GENITOURINARY: Denies any blood in urine. SKIN: Denies pruitis. Denies rash. PHYSICAL EXAM: VITAL SIGNS: Reviewed. GENERAL: Well-developed in no acute distress. HEENT: Head is normocephalic. Pupils are equal, round. Sclerae anicteric. Mucous membranes of the mouth are moist. Neck supple. No JVD or thyromegaly LUNGS: Respirations even and unlabored. Lungs essentially clear to auscultation bilaterally. HEART: Regular rate and rhythm. S1 and S2 heard. Systolic murmur noted. ABDOMEN: Soft. Nondistended. Nontender. EXTREMITIES: Normal range of motion. No clubbing or cyanosis. Peripheral pulses intact. No lower extremity edema NEUROLOGIC: Awake and alert. Oriented x 3. ASSESSMENT: Syncope, suspect vasovagal due to pain History of syncope, 06/2024, due to sciatic pain per patient Acute kidney injury Coronary artery disease with previous stenting to the circumflex, 2009 Mild aortic stenosis Hypertension Hyperlipidemia Diabetes Crohn's disease PLAN: Obtain 2D echo to assess cardiac structure and function Orthostatics obtained and unremarkable Continue home cardiac medications Contine telemetry monitoring Consider eventual outpatient loop recorder Decrease Lisinopril to 5mg at HS Patient encouraged to take his blood pressure at home and keep a log of his blood pressures at home No indication for tilt table testing at this time Further recommendations pending patient course Nurse practitioner note has been reviewed by physician. Signing provider agrees with the documented findings, assessment, and plan of care documented by SEWAGE RETICULATION DRAFTING OFFICER as a scribe. Past Medical History Past Medical History: CVA/TIA, Diabetes Mellitus, Deep Vein Thrombosis (DVT), Eye Disorder, Hypertension, Myocardial Infarction (DC), Renal Disease, Skin Disorder Additional Past Medical History / Comment(s): Crohn's; Episcleritis L Eye; Pyoderma gangrenosum L Leg-healed,elevated triglyerides,heart palpitations, h/x DVT left leg knee area 2017, varicose veins, hx gout, "low kidney function"; pre diabetic; 02/22 low HR, passed out X 3 Last Myocardial Infarction Date:: 2009 History of Any Multi-Drug Resistant Organisms: None Reported Past Surgical History: Heart Catheterization With Stent, Orthopedic Surgery Additional Past Surgical History / Comment(s): R Knee miniscus repair, colonoscopy and EGD, heart stent x1, left wrist carpal tunnel, vasectomy, right shoulder tendon repair 09/2024 Past Anesthesia/Blood Transfusion Reactions: No Reported Reaction Date of Last Stent Placement:: 2009 Past Psychological History: No Psychological Hx Reported Additional Psychological History / Comment(s): . Smoking Status: Current some day smoker Past Alcohol Use History: None Reported Additional Past Alcohol Use History / Comment(s): quit smoking 2009,smoked approx 25 yrs <1ppd Past Drug Use History: None Reported - Past Family History Mother Family Medical History: No Reported History Additional Family Medical History / Comment(s): . Brother(s) History Unknown: Yes Medications and Allergies Home Medications Medication Instructions Recorded Confirmed Type lisinopriL [Zestril] 10 mg PO HS 02/04/17 02/22/25 History Aspirin 81 mg PO DAILY 04/03/17 02/22/25 Rx Simvastatin [Zocor] 40 mg PO HS 04/08/17 02/22/25 History Montelukast Sodium [Singulair] 10 mg PO HS 04/14/18 02/22/25 History allopurinoL [Zyloprim] 100 mg PO DAILY 12/21/20 02/22/25 History Cholecalciferol [Vitamin D3 (125 125 mg PO DIRECTED 09/26/21 02/22/25 History Mcg = 5000 Iu)] Folic Acid 0.4 mcg PO Q28D 09/26/21 02/22/25 History Ubidecarenone [Co Q-10] 200 mg PO Q2D 09/26/21 02/22/25 History cycloSPORINE [Restasis] 1 drop BOTH EYES DAILY 09/26/21 02/22/25 History Ascorbic Acid [Vitamin C] 500 mg PO DAILY 11/05/21 02/22/25 History Acetaminophen/Diphenhydramine 2 tab PO HS PRN 12/26/21 02/22/25 History [Tylenol PM 500-25mg] Fluticasone Nasal [place] [Flonase 1 spray EA NOSTRIL HS 12/26/21 02/22/25 History Nasal [place]] Insulin Degludec [Tresiba] 13 units SQ HS 12/26/21 02/22/25 History Baclofen [Lioresal] 20 mg PO HS 02/22/25 02/22/25 History Biotin 1000mcg 1,000 mcg PO WEEKLY 02/22/25 02/22/25 History Colchicine [Colcrys] 0.6 mg PO DAILY PRN 02/22/25 02/22/25 History Glucosamine/Chondr Nuñez A Sod [Osteo 1 tab PO DAILY 02/22/25 02/22/25 History Bi-Flex Caplet] Insulin Aspart [NovoLOG Flexpen] See Protocol SQ AC-TID 02/22/25 02/22/25 History Magnesium Glycinate 350 mg PO HS 02/22/25 02/22/25 History Metoprolol Succinate (ER) [Toprol 25 mg PO BID 02/22/25 02/22/25 History XL] Turmeric Root Extract [Turmeric] 1,000 mg PO Q2D 02/22/25 02/22/25 History Vitamin B Complex 1 cap PO WEEKLY 02/22/25 02/22/25 History Yuflyma 40mg 40 mg SQ Q10D 02/22/25 02/22/25 History metFORMIN HCL ER [Glucophage XR] 500 mg PO W/SUPPER 02/22/25 02/22/25 History Allergies Allergy/AdvReac Type Severity Reaction Status Date / Time bupropion [From Wellbutrin] Allergy Rash/Hives/ Verified 02/22/25 16:03 Swelling Physical Exam Vitals: Vital Signs Temp Pulse Pulse Resp BP BP BP 02/23/25 04:21 66 18 02/22/25 23:29 135/75 143/53 02/22/25 23:26 67 18 02/22/25 20:34 98.5 F 66 17 02/22/25 16:58 67 17 02/22/25 16:57 97.9 F 67 17 02/22/25 16:42 60 20 100/60 02/22/25 14:02 60 17 97/57 02/22/25 13:07 111/62 02/22/25 12:39 61 18 101/63 02/22/25 12:33 98.1 F 67 20 97/67 BP Pulse Ox 02/23/25 04:21 131/81 98 02/22/25 23:29 115/64 02/22/25 23:26 115/64 98 02/22/25 20:34 110/65 97 02/22/25 16:58 02/22/25 16:57 115/71 96 02/22/25 16:42 95 02/22/25 14:02 96 02/22/25 13:07 02/22/25 12:39 94 L 02/22/25 12:33 96 Intake and Output 02/22/25 02/23/25 02/23/25 22:59 06:59 14:59 Intake Total 370 Output Total 950 Balance 370 -950 Intake: IV 10 Invasive Line 2 10 Oral 360 Output: Urine 950 Other: Voiding Method Toilet Toilet Urinal Urinal Weight 86.183 kg 86 kg Results 02/23/25 05:50 02/23/25 05:50 Cardiac Enzymes 02/22/25 02/22/25 02/22/25 Range/Units 12:50 12:50 16:32 AST 28 (17-59) U/L Troponin I <0.012 <0.012 (0.000-0.034) ng/mL 02/22/25 Range/Units 20:40 AST (17-59) U/L Troponin I <0.012 (0.000-0.034) ng/mL Coagulation 02/22/25 Range/Units 12:50 PT 10.6 (10.0-12.5) sec APTT 22.0 (22.0-30.0) sec CBC 02/22/25 02/23/25 Range/Units 12:50 05:50 WBC 12.76 H 8.52 (4.50-10.00) 10*3/uL RBC 4.48 3.87 L (4.40-5.60) 10*6/uL Hgb 14.7 12.6 L (13.0-17.0) g/dL Hct 42.2 37.6 L (39.6-50.0) % Plt Count 219 166 (140-440) 10*3/uL Comprehensive Metabolic Panel 02/22/25 02/23/25 Range/Units 12:50 05:50 Sodium 135 L 138 (137-145) mmol/L Potassium 3.9 4.2 (3.5-5.1) mmol/L Chloride 106 108 H (98-107) mmol/L Carbon Dioxide 15 L 24 (22-30) mmol/L BUN 29 H 24 H (9-20) mg/dL Creatinine 1.61 H 1.20 (0.66-1.25) mg/dL Glucose 121 H 82 (74-99) mg/dL Calcium 10.0 9.1 (8.4-10.2) mg/dL AST 28 (17-59) U/L ALT 19 (4-49) U/L Alkaline Phosphatase 54 (38-126) U/L Total Protein 7.3 (6.3-8.2) g/dL Albumin 4.3 (3.5-5.0) g/dL Current Medications Generic Name Dose Route Start Last Admin Trade Name Freq PRN Reason Stop Dose Admin Acetaminophen 1,000 mg 02/22/25 18:57 Acetaminophen Tab 500 Mg Tab PO HS PRN SLEEP Allopurinol 100 mg 02/23/25 09:00 Allopurinol 100 Mg Tab PO DAILY [facility] Ascorbic Acid 500 mg 02/23/25 09:00 Ascorbic Acid 500 Mg Tab PO DAILY [facility] Aspirin 81 mg 02/23/25 09:00 Aspirin 81 Mg PO DAILY [facility] Atorvastatin Calcium 20 mg 02/22/25 21:00 02/22/25 20:30 Atorvastatin 20 Mg Tab PO 20 mg HS SA[facility] Administration Baclofen 20 mg 02/22/25 21:00 02/22/25 20:29 Baclofen 10 Mg Tab PO 20 mg HS SAUD Administration Cholecalciferol 125 mcg 02/25/25 09:00 Cholecalciferol 125 Mcg (5000 Iu) Tablet PO MoFr SAUD Colchicine 0.6 mg 02/22/25 18:57 Colchicine 0.6 Mg Each PO DAILY PRN GOUT ATTACK Cyclosporine 1 drops 02/23/25 09:00 Cyclosporine 0.05% Ophth 0.4 Ml Droperette BOTH EYES DAILY [facility] Dextrose/Water 25 ml 02/22/25 20:07 Dextrose 50% Syringe 50 Ml IVP PER PROTOCOL PRN Hypoglycemia Protocol Dextrose/Water 50 ml 02/22/25 20:07 Dextrose 50% Syringe 50 Ml IVP PER PROTOCOL PRN Hypoglycemia Protocol Diphenhydramine HCl 50 mg 02/22/25 19:12 Diphenhydramine 50 Mg Cap PO HS PRN SLEEP Enoxaparin Sodium 40 mg 02/22/25 22:45 02/22/25 23:25 Enoxaparin 40 Mg/0.4 Ml Syringe SQ Not Given DAILY [facility] Fluticasone Propionate 1 spray 02/22/25 21:00 02/22/25 20:30 Fluticasone Nasal 50mcg/[place] 16gm Btl EA NOSTRIL Not Given HS [facility] Folic Acid 0.5 mg 02/22/25 19:00 02/22/25 20:30 Folic Acid 1 Mg Tab PO 0.5 mg Q28D SA[facility] Administration Sodium Chloride 1,000 mls @ 130 mls/hr 02/22/25 14:45 02/23/25 06:26 Saline 0.9% IV 130 mls/hr .Q7H42M [facility] Administration Insulin Glargine 13 unit 02/22/25 21:00 02/22/25 21:08 Insulin Glargine (Lantus) 100 Unit/Ml Syr SQ 13 unit HS SAUD Administration Insulin Human Lispro 0 unit 02/22/25 21:00 02/23/25 06:13 Insulin Lispro (Humalog) 100 Unit/Ml 10 Ml Vl SQ Not Given ACHS [facility] Protocol Lisinopril 10 mg 02/22/25 21:00 02/22/25 20:30 Lisinopril 10 Mg Tab PO 10 mg HS SA[facility] Administration Loratadine 10 mg 02/22/25 21:00 02/22/25 20:30 Loratadine 10 Mg Tab PO 10 mg HS SA[facility] Administration Metformin HCl 250 mg 02/23/25 07:30 02/23/25 06:26 Metformin 500 Mg Tab PO 250 mg BID-W/MEALS [facility] Administration Metoprolol Succinate 25 mg 02/22/25 21:00 02/22/25 20:30 Metoprolol Succinate (Er) 25 Mg Tab.Er.24h PO 25 mg BID [facility] Administration Montelukast Sodium 10 mg 02/22/25 21:00 02/22/25 20:29 Montelukast 10 Mg Tab PO 10 mg HS SA[facility] Administration Multivit/Ca Carb/B Cmplx/FA/Prenat 1 each 02/28/25 09:00 Folic Acid-Vit B Complex-Vit C 1 Cap PO Mo [facility] Naloxone HCl 0.2 mg 02/22/25 14:36 Naloxone 0.4 Mg/Ml 1 Ml Vial IV Q2M PRN Opioid Reversal Intake and Output 02/22/25 02/23/25 02/23/25 22:59 06:59 14:59 Intake Total 370 Output Total 950 Balance 370 -950 Intake: IV 10 Invasive Line 2 10 Oral 360 Output: Urine 950 Other: Voiding Method Toilet Toilet Urinal Urinal Weight 86.183 kg 86 kg 02/23/25 05:50 02/23/25 05:50
--- NOTE | 2025-02-23 13:24 | EEG ---
ELECTROENCEPHALOGRAM REPORT PREAMBLE: This is a 74-year-old male, who has multiple episodes of syncope. He will be standing and all of a sudden pass out. No tongue biting. No seizure. CURRENT MEDICATIONS: 1. Zyloprim. 2. Folic acid. 3. Lantus. 4. Zestril. 5. Metformin. 6. Metoprolol. EEG FINDINGS: This is a 21-channel digital EEG recorded with video component, utilizing 10/20 international system with referential and bipolar montages. Background consists of well developed, well regulated moderate voltage activity in 9 hertz alpha. Background is posterior dominant and reactive to eye opening and closing. Photic driving response was not seen. Drowsiness was seen with appearance of bilaterally symmetric theta frequency rhythm. Stage 2 sleep was attained, with presence of sleep spindles and slowing of the background. No focal or generalized epileptiform activity was seen. IMPRESSION: This is a normal EEG during wakefulness, drowsiness, and stage 2 sleep. No focal, lateralized, or epileptiform activity was seen. MMODL / IJN: [id number] /
[2025-02-23] MEDS ORDERED: lisinopriL 5 MG TAB PO SCH (21:00)
[2025-02-25] MEDS ORDERED: CHOLECALCIFEROL 125 MCG (5000 IU) TABLET PO SCH (09:00)
[2025-02-28] MEDS ORDERED: FOLIC ACID-VIT B COMPLEX-VIT C 1 CAP PO SCH (09:00)
[2025-03-01] MEDS ORDERED: BIOTIN 1000 MCG PO SCH (09:00)
== END 2025-02-23 14:16 | disposition home or self-care (01) ==
LOC: EC 12:29 → 3SCARD 14:38 → INTOOBSV 14:38 → 3SCARD 16:28
PROVIDERS: ADMIT Hospitalist; ATTEND Hospitalist
DX: R55 Syncope and collapse (principal); N17.9 Acute kidney failure, unspecified; I25.10 Atherosclerotic heart disease of native coronary artery without angina pectoris; I35.0 Nonrheumatic aortic (valve) stenosis; I10 Essential (primary) hypertension; I25.2 Old myocardial infarction; E78.5 Hyperlipidemia, unspecified; E11.9 Type 2 diabetes mellitus without complications; K50.90 Crohn's disease, unspecified, without complications; F17.200 Nicotine dependence, unspecified, uncomplicated; M10.9 Gout, unspecified; Z95.5 Presence of coronary angioplasty implant and graft; Z86.73 Personal history of transient ischemic attack (TIA), and cerebral infarction without residual deficits; Z88.8 Allergy status to other drugs, medicaments and biological substances; Z79.4 Long term (current) use of insulin; Z79.82 Long term (current) use of aspirin; Z79.84 Long term (current) use of oral hypoglycemic drugs; Z79.899 Other long term (current) drug therapy
CPT/HCPCS: 96360; 96361; 99285; 36415; 95816; 93005; 93306; 84439; 80053; 80048; 84443; 83735; 84484; 85025 ×2; 85610; 85730; 71046; G0378 ×2

== ENCOUNTER → 2025-03-01 | Outpatient (CLI) | payer MEDICARE, OTHER ==
[2025-03-01 15:03] LABS: T4, Free (Free Thyroxine) 0.87 ng/dL (0.80-1.80)
== END | disposition home or self-care (01) ==
LOC: LABWHC1 12:01
PROVIDERS: ATTEND Family Medicine
DX: E03.9 Hypothyroidism, unspecified (principal)
CPT/HCPCS: 36415; 84439; 84443; 84481

== ENCOUNTER → 2025-03-02 | Outpatient (CLI) | payer MEDICARE, OTHER ==
[2025-03-02 15:59] LABS: Eosinophils # (A) 0.42 X 10*3/uL (0.04-0.35); Eosinophils % (A) 4.1 %; HCT 40.6 % (39.6-50.0); HGB 13.4 g/dL (13.0-17.0); Lymphocytes # (A) 2.78 X 10*3/uL (0.90-5.00); Lymphocytes % (A) 26.8 %; MCH 32.2 pg (27.0-32.0); MCV 97.6 FL (80.0-97.0); Mean Platelet Volume 10.2 FL (9.5-12.2); Monocytes # (A) 1.06 X 10*3/uL (0.20-1.00); Monocytes % (A) 10.2 %; NRBC Per 100 WBC 0 X 10*3/uL (0.00-0.01); Neutrophils # (A) 5.94 X 10*3/uL (1.80-7.70); Neutrophils % (A) 57.3 %; Platelet Count 220 X 10*3/uL (140-440); RBC 4.16 X 10*6/uL (4.40-5.60); RDW 12.8 % (11.5-14.5); WBC 10.36 X 10*3/uL (4.50-10.00)
[2025-03-02 16:56] LABS: BUN/Creat Ratio 23.75 Ratio (12.00-20.00); Blood Urea Nitrogen 28.5 mg/dL (9.0-27.0); Calcium 9.4 mg/dL (8.7-10.3); Carbon Dioxide 23.6 mmol/L (21.6-31.8); Chloride 104 mmol/L (96-109); Glucose 117 mg/dL (70-110); Potassium 4.5 mmol/L (3.5-5.5); Sodium 141 mmol/L (135-145)
== END | disposition home or self-care (01) ==
LOC: LABWHC1 10:35
PROVIDERS: ATTEND Family Medicine
DX: N17.9 Acute kidney failure, unspecified (principal); D72.828 Other elevated white blood cell count
CPT/HCPCS: 36415; 80048; 85025

== ENCOUNTER → 2025-03-21 | Outpatient (CLI) | payer MEDICARE, OTHER ==
[2025-03-21 15:21] LABS: Carbon Dioxide 21.5 mmol/L (21.6-31.8); Chloride 105 mmol/L (96-109); Potassium 4.6 mmol/L (3.5-5.5); Sodium 139 mmol/L (135-145)
[2025-03-21 15:46] LABS: HCT 39.8 % (39.6-50.0); HGB 13.1 g/dL (13.0-17.0); MCH 32.2 pg (27.0-32.0); MCHC 32.9 g/dL (32.0-37.0); MCV 97.8 FL (80.0-97.0); Mean Platelet Volume 10.1 FL (9.5-12.2); NRBC Per 100 WBC 0 X 10*3/uL (0.00-0.01); Platelet Count 196 X 10*3/uL (140-440); RBC 4.07 X 10*6/uL (4.40-5.60); RDW 12.6 % (11.5-14.5); WBC 7.73 X 10*3/uL (4.50-10.00)
== END | disposition home or self-care (01) ==
LOC: LABPAT 11:14
PROVIDERS: ATTEND Internal Medicine Interventional Cardiology
DX: Z01.812 Encounter for preprocedural laboratory examination (principal); R55 Syncope and collapse
CPT/HCPCS: 36415; 80051; 82565; 84520; 85027

== ENCOUNTER → 2025-03-23 | Day surgery (SDC) | payer MEDICARE, OTHER ==
[2025-03-22 11:48] VITALS: BMI 26.2
[~2025-03-23] MED LIST changes: -LACTATED RINGERS 1,000 ML IV SCH; -LIDOCAINE 1% (10MG/ML) FOR IV START INTRADERMA PRN; +SODIUM CHLORIDE 0.9% 1,000 ML IV SCH
[2025-03-23 08:31] VITALS: BP 144/71; PULSE 53; RESP 16; TEMP 97.7
[2025-03-23] MEDS: IV FLUID CONTINUATION 1,000 ML IV ONE (08:33)
[2025-03-23] MEDS: ceFAZolin 2 GM in DEXTROSE 5% IN WATER 50 ML IVPB ONE (09:11)
[2025-03-23] MEDS: LIDOCAINE 1% INJ 10MG/ML (20 ML MDV) SQ ONE (09:23)
--- NOTE | 2025-03-23 21:18 | CE ---
CARDIAC ELECTROPHYSIOLOGY REPORT PROCEDURE: Loop recorder insertion. INDICATION: Recurrent episodes of probable cardiogenic syncope with bradycardia. PROCEDURE NOTE: Under strict aseptic precautions and local anesthesia, a stab incision was made with the available tool and then the plunger that was loaded with the loop recorder was advanced into the small incision in the 4th intercostal space in the lateral direction and the plunger was withdrawn and the device was also then advanced right into the 4th intercostal space. Excellent signal was noted. A single suture was applied. Hemostasis was secured. The patient received antibiotic infusion at the beginning of the procedure. Duration of the procedure was about 10 minutes. 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 The reference number is [id number], serial number is [id number]. INDICATION: Recurrent syncope. Signal was excellent. The R-wave amplitude was 0.74 mV with a good signal. The settings were made for that of a syncope protocol. The patient tolerated the procedure well without complication. MMBUTCH / FRANCINEN: [id number] /
== END ==
LOC: CATHEP 07:56
PROVIDERS: ATTEND Internal Medicine Interventional Cardiology
DX: R55 Syncope and collapse (principal); I25.10 Atherosclerotic heart disease of native coronary artery without angina pectoris; E11.9 Type 2 diabetes mellitus without complications; K50.90 Crohn's disease, unspecified, without complications; E78.00 Pure hypercholesterolemia, unspecified; Z79.4 Long term (current) use of insulin; Z79.82 Long term (current) use of aspirin; Z79.84 Long term (current) use of oral hypoglycemic drugs; Z79.899 Other long term (current) drug therapy
CPT/HCPCS: 33285; C1764; J0690; J2003

== ENCOUNTER → 2025-03-30 | Outpatient (CLI) | payer MEDICARE, OTHER ==
[2025-03-30 18:13] LABS: Basophils # (A) 0.07 X 10*3/uL (0.00-0.10); Basophils % (A) 0.8 %; Eosinophils # (A) 0.29 X 10*3/uL (0.04-0.35); Eosinophils % (A) 3.5 %; HCT 37.7 % (39.6-50.0); HGB 12.7 g/dL (13.0-17.0); Lymphocytes # (A) 2.82 X 10*3/uL (0.90-5.00); Lymphocytes % (A) 33.6 %; MCH 32.5 pg (27.0-32.0); MCHC 33.7 g/dL (32.0-37.0); MCV 96.4 FL (80.0-97.0); Monocytes # (A) 0.81 X 10*3/uL (0.20-1.00); Monocytes % (A) 9.7 %; NRBC Per 100 WBC 0 X 10*3/uL (0.00-0.01); Neutrophils # (A) 4.35 X 10*3/uL (1.80-7.70); Neutrophils % (A) 51.8 %; Platelet Count 208 X 10*3/uL (140-440); RBC 3.91 X 10*6/uL (4.40-5.60); RDW 12.6 % (11.5-14.5); WBC 8.39 X 10*3/uL (4.50-10.00)
[2025-03-30 18:57] LABS: ALT 23 U/L (10-49); AST 32 U/L (14-35); Albumin 4.1 g/dL (3.8-4.9); Albumin/Globulin Ratio 1.58 Ratio (1.60-3.17); Alkaline Phosphatase 56 U/L (41-126); BUN/Creat Ratio 19.23 Ratio (12.00-20.00); Calcium 8.9 mg/dL (8.7-10.3); Carbon Dioxide 22.1 mmol/L (21.6-31.8); Chloride 107 mmol/L (96-109); Globulin 2.6 g/dL (1.6-3.3); Glucose 97 mg/dL (70-110); Potassium 4.6 mmol/L (3.5-5.5); Sodium 141 mmol/L (135-145); Total Bilirubin <0.2 mg/dL (0.3-1.2); Total Protein 6.7 g/dL (6.2-8.2)
== END | disposition home or self-care (01) ==
LOC: LABWHC1 15:32
PROVIDERS: ATTEND Internal Medicine Gastroenterology
DX: N28.9 Disorder of kidney and ureter, unspecified (principal); K50.00 Crohn's disease of small intestine without complications
CPT/HCPCS: 36415; 80053; 85025